=== PATIENT | female | born 1955 | race Caucasian/White ===

== ENCOUNTER → 2016-10-14 | Outpatient (CLI) | payer OTHER ==
[2016-10-14 13:22] LABS: Non-African American GFR(MDRD) >60 (>60 ml/min/1.73 sqM)
== END | disposition home or self-care (01) ==
LOC: LABWHC1 12:52
PROVIDERS: ATTEND Otolaryngology
DX: Z01.812 Encounter for preprocedural laboratory examination (principal); R43.8 Other disturbances of smell and taste
CPT/HCPCS: 36415; 82565

== ENCOUNTER → 2016-10-17 | Outpatient (CLI) | payer OTHER ==
--- NOTE | 2016-10-17 13:21 | MR ---
EXAMINATION TYPE: MR brain wo/w con DATE OF EXAM: 10/17/2016 12:42 PM COMPARISON: NONE HISTORY: other disturbance of smell and taste TECHNIQUE: Multiplanar, multiecho imaging of the brain was obtained with and without intravenous adm inistration of 20 mL intravenous MultiHance. FINDINGS: Midline structures are unremarkable. There is a normal craniocervical junction. Echoplanar diffusion imaging is normal. There is near complete opacification of the right maxillary sinus. There is mucoperiosteal thickening involving the left maxillary sinus as well as the ethmoid sinuses and left frontal sinus. There are normal vascular flow voids. There is no evidence of a CP angle mass lesion. No focal lesion, mass effect or midline shift is seen. I do not see evidence of intracranial blood. Following intravenous administration of gadolinium, I do not see evidence of abnormal enhancement. IMPRESSION: 1. NO ACUTE INTRACRANIAL ABNORMALITY. 2. CHRONIC SINUS MUCOSAL DISEASE DESCRIBED.
== END | disposition home or self-care (01) ==
LOC: RADMRIMAIN 11:49
PROVIDERS: ATTEND Otolaryngology
DX: R43.8 Other disturbances of smell and taste (principal)
CPT/HCPCS: 70553; A9577

== ENCOUNTER → 2017-04-13 | Outpatient (CLI) | payer OTHER ==
--- NOTE | 2017-04-14 11:02 | MM ---
Reason for exam: screening (asymptomatic). Last mammogram was performed 1 year and 1 month ago. History: Patient is postmenopausal. Family history of breast cancer in maternal grandmother at age 87. Stereotactic core biopsy of the left breast, 2014. Physical Findings: A clinical breast exam by your physician is recommended on an annual basis and results should be correlated with mammographic findings. MG Screening Mammo w CAD Bilateral CC and MLO view(s) were taken. Prior study comparison: March 09, 2016, bilateral MG screening mammo w CAD. August 12, 2015, bilateral MG 3d diag mammo w/cad ISAIAH. The breast tissue is almost entirely fat. No significant changes when compared with prior studies. ASSESSMENT: Benign, BI-RAD 2 RECOMMENDATION: Routine screening mammogram of both breasts in 1 year.
== END | disposition home or self-care (01) ==
LOC: RADMAMWWP 10:45
PROVIDERS: ATTEND Family Medicine
DX: Z12.31 Encounter for screening mammogram for malignant neoplasm of breast (principal)
CPT/HCPCS: 77067

== ENCOUNTER → 2017-05-23 | Outpatient (CLI) | payer OTHER ==
[2017-05-23 11:20] LABS: Albumin 4.2 g/dL (3.5-5.0); Bilirubin, Delta 0.3 mg/dL (0.0-0.2); Bilirubin,Unconjugated 0.4 mg/dL (0.0-1.1); Total Bilirubin 0.7 mg/dL (0.2-1.3); Total Protein 7.1 g/dL (6.3-8.2)
== END | disposition home or self-care (01) ==
LOC: LABWHC1 09:58
PROVIDERS: ATTEND Family Medicine
DX: E78.5 Hyperlipidemia, unspecified (principal)
CPT/HCPCS: 36415; 80061; 80076

== ENCOUNTER → 2017-09-08 | Outpatient (CLI) | payer OTHER | END | disposition home or self-care (01) | LOC: LABWHC1 12:12 | PROVIDERS: ATTEND Family Medicine | DX: M25.562 Pain in left knee (principal); M17.12 Unilateral primary osteoarthritis, left knee | CPT/HCPCS: 36415; 84550 ==

== ENCOUNTER → 2017-09-14 | Outpatient (CLI) | payer OTHER ==
--- NOTE | 2017-09-14 10:46 | MR ---
EXAMINATION TYPE: MR knee LT wo con DATE OF EXAM: 09/14/2017 COMPARISON: NONE HISTORY: Pain in left knee TECHNIQUE: Multiplanar, multisequence imaging of the left knee is performed without IV contrast. FINDINGS: There is narrowing of the joint spaces compatible osteoarthritis. There severe narrowing of the patellofemoral joint and knee joints bilaterally with hypertrophic spur ring. 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 Medial collateral and lateral collateral ligaments have a normal appearance. Anterior cruciate and po sterior cruciate ligaments are intact. There is grade 3 abnormal signal involving the posterior horn the medial meniscus compatible with men iscal tear. Grade 3 abnormal signal involving the body of the lateral meniscus compatible with tear. There is a sizable suprapatellar bursal fluid collection. Patellar and quadriceps tendons intact. Abn ormal marrow signal involving the femur and patella likely reactive secondary to severe arthropathy. IMPRESSION: 1. Severe osteoarthritis with degenerative meniscal tears involving the posterior horn medial meniscu s and body lateral 2. No ligamentous tear. 3. Chondromalacia as discussed above. 4. Suprapatellar bursal fluid collection.
== END | disposition home or self-care (01) ==
LOC: RADMRIMAIN 09:36
PROVIDERS: ATTEND Orthopaedic Surgery
DX: M17.12 Unilateral primary osteoarthritis, left knee (principal); S83.242A Other tear of medial meniscus, current injury, left knee, initial encounter; M22.42 Chondromalacia patellae, left knee

== ENCOUNTER → 2017-09-21 | Outpatient (CLI) | payer OTHER ==
[2017-09-21 11:19] LABS: Basophils # (A) 0.1 k/uL (0-0.2); Basophils % (A) 1 %; Eosinophils # (A) 0.5 k/uL (0-0.7); Eosinophils % (A) 7 %; HCT 42.4 % (34.0-46.0); Lymphocytes # (A) 1.3 k/uL (1.0-4.8); Lymphocytes % (A) 18 %; MCH 29.1 pg (25.0-35.0); MCV 88.3 fL (80.0-100.0); Mean Platelet Volume 7.6; Monocytes # (A) 0.5 k/uL (0-1.0); Monocytes % (A) 6 %; Neutrophils # (A) 4.7 k/uL (1.3-7.7); Neutrophils % (A) 66 %; Platelet Count 269 k/uL (150-450); RDW 13.2 % (11.5-15.5); WBC 7.1 k/uL (3.8-10.6)
[2017-09-21 11:32] LABS: Potassium 4.5 mmol/L (3.5-5.1)
== END | disposition home or self-care (01) ==
LOC: LABPAT 10:42
PROVIDERS: ATTEND Orthopaedic Surgery
DX: Z01.812 Encounter for preprocedural laboratory examination (principal); M23.92 Unspecified internal derangement of left knee
CPT/HCPCS: 36415; 80051; 85025

== ENCOUNTER 2017-10-10 09:54 | Day surgery (SDC) | payer OTHER ==
[2017-10-05 10:58] VITALS: BMI 34.7
--- NOTE | 2017-10-09 09:16 | HP ---
HISTORY AND PHYSICAL CHIEF COMPLAINT: Left knee pain. 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 She notes medial pain along with giving way. She has tried medications in addition to an injection and use of a cane with only partial temporary relief. PAST MEDICAL HISTORY: Significant for hypertension and hypercholesterolemia. PAST SURGICAL HISTORY: Significant for hernia repair and section. CURRENT MEDICATIONS: 1. Amlodipine. 2. Statin. She notes allergies to LIPITOR. FAMILY HISTORY: Significant for hypertension and heart disease. SOCIAL HISTORY: Negative for current tobacco or alcohol use. REVIEW OF SYSTEMS: A 16 point review of systems otherwise reviewed and is noncontributory. PHYSICAL EXAMINATION: The patient is approximately 5 foot 6, 220 pounds of endomorphic habitus. HEENT exam is nonfocal. Neck is supple. She has painless passive motion of her left hip. Straight leg raise is negative. Active motion of left knee -14 to 100 degrees of flexion. She is tender about the medial joint line. She has a large effusion. Collaterals are stable, Yuan is negative, Francisco's elicits medial and lateral pain. She has an antalgic gait pattern. Her distal neurovascular appears intact in the left lower extremity. MRI report for the left knee for 09/14/2017 shows medial and lateral meniscal tears along with tricompartmental osteoarthrosis. IMPRESSION: 1. Left knee internal derangement with symptomatic medial lateral meniscal tears #1. 2. Left knee tricompartmental osteoarthrosis. 3. Increased body mass index. RECOMMENDATIONS: I talked to the patient at length regarding her condition and treatment options. At this point, she is quite symptomatic and limited because of pain and mechanical symptoms despite conservative measures. After thorough discussion, she opts to proceed with surgery. We will plan to proceed with arthroscopic evaluation with probable partial medial and lateral meniscectomy. Risks and benefits were discussed at length in layman's terms. We will likely perform that as an outpatient procedure. MMODL / IJN: [id number] /
[~2017-10-10 09:54] MED LIST: DEXAMETHASONE SOD PHOSPHATE 10 MG/ML 1 ML VIAL IV ONE; LACTATED RINGERS 1,000 ML IV SCH; LIDOCAINE 1% 20 ML VIAL (10MG/ML) FOR IV START INTRADERMA PRN; MIDAZOLAM 2 MG/2 ML VIAL IV PRN; ONDANSETRON 4 MG/2 ML VIAL IVP ONE; ceFAZolin IN SWFI 2 GM/20 ML SYRINGE IVP ONE; fentaNYL (PF) 50 MCG/ML 2 ML AMP IV PRN
[2017-10-10] MEDS ORDERED: ONDANSETRON 4 MG/2 ML VIAL ONE (11:07)
[2017-10-10] MEDS ORDERED: SCOPOLAMINE 1.5MG/72HR PATCH TRANSDERM ONE (11:15)
[2017-10-10] MEDS ORDERED: PROPOFOL 10 MG/ML 20 ML VIAL IV ONE (13:46)
[2017-10-10] MEDS ORDERED: MIDAZOLAM 2 MG/2 ML VIAL ONE (13:46)
[2017-10-10] MEDS ORDERED: fentaNYL (PF) 50 MCG/ML 2 ML AMP ONE (13:46)
[2017-10-10] MEDS ORDERED: KETOROLAC 30 MG/ML 1 ML VIAL ONE (13:46)
[2017-10-10 14:37] VITALS: TEMP 97.2
--- NOTE | 2017-10-10 14:39 | P.OP ---
Date of Procedure: 10/10/17 Preoperative Diagnosis: Left knee internal derangement Postoperative Diagnosis: Left knee anterior/middle lateral meniscal tear, grade 3 chondral injury distal medial femoral condyle, grade 2 chondral injury medial patellar facet. Procedure(s) Performed: Left knee arthroscopic partial lateral meniscectomy/medial femoral chondrectomy/ patellar chondroplasty Anesthesia: JAQUELIN Surgeon: Hayden London Estimated Blood Loss (ml): 10 Pathology: none sent Condition: stable Disposition: PACU Indications for Procedure: The patient's a 62-year-old female who presents with progressive left knee pain and mechanical symptoms despite conservative measures. A discussion of the risks and benefits of operative intervention versus continued conservative measures was made with patient. She opted to proceed with surgery. Operative risks to include infection, neurovascular injury, development of blood clots, possible incomplete resolution of symptoms, possible worsening symptoms and need for subsequent procedures was discussed. Informed consent was obtained. Operative Findings: As below Description of Procedure: The patient was brought to the operating room, and after induction of general anesthesia examined the left knee. Collaterals were stable, Yuan was negative, and posterior drawer was negative. The left lower extremity was prepped and draped in normal fashion. A superior lateral portal was made through a 3 mm skin incision superior and lateral to the patella. A large effusion was encountered. A lateral portal was made through a 5 mm vertical skin incision lateral to the patellar tendon above the joint line. Diagnostic arthroscopy was performed. A medial portal was made through a similar incision medial to the patella tendon above the joint line. On inspection medial compartment, she was noted to have diffuse grade 3 chondral changes involving the posterior aspect the medial femoral condyle. There was a loose chondral flap that was debrided back to stable base with a motorized shaver. The medial meniscus was stable and intact. On inspection of the notch, the anterior cruciate ligament appeared to be intact. On inspection of the lateral compartment, a complex tear involving the anterior horn in addition to the middle one third of the lateral meniscus in the white-junction was noted. This debrided back to stable base with straight baskets and a motorized shaver. Diffuse grade 2 chondral changes were noted involving the distal lateral femoral condyle. On inspection of the patellofemoral articulation, a grade 2 chondral injury was noted involving the medial patella facet. This loose fragment was debrided back to stable base with a motorized shaver. The gutters were clear debris. The knee was then thoroughly irrigated. The portals were closed with Steri-Strips. A sterile dressing was applied in addition to a compression stocking. The patient was awoken from general anesthesia and transferred to the recovery room in good condition. A loss was estimated at 10 mL. No complications were incurred.
[2017-10-10 15:25] VITALS: RESP 18
[2017-10-10 15:41] VITALS: BP 147/67; PULSE 78
== END 2017-10-10 15:54 | disposition home or self-care (01) ==
LOC: OR 09:54
PROVIDERS: ATTEND Orthopaedic Surgery
DX: S83.282A Other tear of lateral meniscus, current injury, left knee, initial encounter (principal); S89.82XA Other specified injuries of left lower leg, initial encounter; X50.1XXA Overexertion from prolonged static or awkward postures, initial encounter; I10 Essential (primary) hypertension; E78.00 Pure hypercholesterolemia, unspecified; Z79.899 Other long term (current) drug therapy; Z88.8 Allergy status to other drugs, medicaments and biological substances
CPT/HCPCS: 29881; J2250; J1100; J2405; J3010; J1885; J2704; J0690

== ENCOUNTER → 2018-03-12 | Outpatient (CLI) | payer OTHER ==
[2018-03-12 11:16] LABS: Basophils # (A) 0.1 k/uL (0-0.2); Basophils % (A) 1 %; Eosinophils # (A) 0.5 k/uL (0-0.7); Eosinophils % (A) 8 %; HCT 43.8 % (34.0-46.0); HGB 14.7 gm/dL (11.4-16.0); Lymphocytes # (A) 1.2 k/uL (1.0-4.8); Lymphocytes % (A) 20 %; MCH 29.7 pg (25.0-35.0); MCHC 33.7 g/dL (31.0-37.0); MCV 88.2 fL (80.0-100.0); Mean Platelet Volume 7.8; Monocytes # (A) 0.3 k/uL (0-1.0); Monocytes % (A) 5 %; Neutrophils # (A) 4.2 k/uL (1.3-7.7); Neutrophils % (A) 66 %; Platelet Count 255 k/uL (150-450); RBC 4.96 m/uL (3.80-5.40); RDW 13.2 % (11.5-15.5); WBC 6.3 k/uL (3.8-10.6)
[2018-03-12 16:38] LABS: Albumin 4.4 g/dL (3.80-4.90); Albumin/Globulin Ratio 2.2 (1.20-2.10); Anion Gap 6.9 mmol/L (4.00-12.00); Calcium 9.5 mg/dL (8.7-10.3); Carbon Dioxide 28.1 mmol/L (21.6-31.8); LDL Cholesterol,Calculated 127.8 mg/dL (0.0-131.0); Total Bilirubin 0.7 mg/dL (0.3-1.2); Total Protein 6.4 g/dL (6.2-8.2); VLDL Calculation 26.2 mg/dL (5.00-40.00)
[2018-03-12 16:46] LABS: T4, Free (Free Thyroxine) 1.1 ng/dL (0.80-1.80)
== END ==
LOC: LABWHC1 09:33
PROVIDERS: ATTEND Family Medicine
DX: E55.9 Vitamin D deficiency, unspecified (principal); Z13.220 Encounter for screening for lipoid disorders; R53.83 Other fatigue
CPT/HCPCS: 36415; 80053; 80061; 82306; 84439; 84443; 85025

== ENCOUNTER → 2018-07-16 | Outpatient (CLI) | payer OTHER ==
[2018-07-16 12:22] LABS: Basophils % (A) 1 %; Eosinophils # (A) 0.4 k/uL (0-0.7); Eosinophils % (A) 6 %; HCT 41.2 % (34.0-46.0); HGB 13.8 gm/dL (11.4-16.0); Lymphocytes # (A) 1.3 k/uL (1.0-4.8); Lymphocytes % (A) 20 %; MCH 29.5 pg (25.0-35.0); MCHC 33.6 g/dL (31.0-37.0); MCV 87.9 fL (80.0-100.0); Mean Platelet Volume 7.4; Monocytes # (A) 0.3 k/uL (0-1.0); Monocytes % (A) 5 %; Neutrophils # (A) 4.4 k/uL (1.3-7.7); Neutrophils % (A) 66 %; Platelet Count 235 k/uL (150-450); RBC 4.68 m/uL (3.80-5.40); RDW 13.2 % (11.5-15.5); WBC 6.6 k/uL (3.8-10.6)
[2018-07-16 12:30] LABS: INR 0.9 (<1.2); Prothrombin Time 10.2 sec (9.0-12.0)
[2018-07-16 12:34] LABS: Potassium 4.4 mmol/L (3.5-5.1)
== END | disposition home or self-care (01) ==
LOC: LABPAT 11:05
PROVIDERS: ATTEND Orthopaedic Surgery
DX: Z01.812 Encounter for preprocedural laboratory examination (principal); M17.12 Unilateral primary osteoarthritis, left knee
CPT/HCPCS: 36415; 80051; 85025; 85610; 87070

== ENCOUNTER 2018-08-07 06:12 | Day surgery (SDC) | payer OTHER ==
[2018-08-02 11:50] VITALS: BMI 35.7
--- NOTE | 2018-08-06 09:16 | HP ---
HISTORY AND PHYSICAL CHIEF COMPLAINT: Left knee pain. 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 She has pain that limits her normal function and activities. She does use a cane. She has tried medications along with injections with only partial temporary relief. She had a previous arthroscopy last year. PAST MEDICAL HISTORY: Significant for hypertension, hypercholesterolemia, arthritis. PAST SURGICAL HISTORY: Significant for hernia repair, section, and left knee arthroscopy. CURRENT MEDICATIONS: Amlodipine and Rosuvastatin. She notes allergies to LIPITOR. FAMILY HISTORY: Significant for heart disease and hypertension. SOCIAL HISTORY: Negative for current tobacco or alcohol use. 16 POINT REVIEW OF SYSTEMS: Otherwise reviewed and is noncontributory. PHYSICAL EXAMINATION: On examination, the patient is approximately 5 foot 6, 218 pounds of endomorphic habitus. HEENT exam is nonfocal. Neck is supple. She has painless passive motion of left hip. Straight leg raise is negative. Active motion left knee is -12 to 100 degrees of flexion. She has a moderate effusion. She is tender about the medial joint line, greater than lateral. Collaterals are stable, Yuan is negative, Francisco's is equivocal. She has genu valgum alignment. Her distal neurovascular appears intact in the left lower extremity. Previous weightbearing, notch, lateral and Merchant views of the left knee obtained in the office shows severe patellofemoral along with moderate lateral compartment osteoarthrosis. IMPRESSION: 1. Left knee osteoarthrosis-severe. 2. Increased body mass index. RECOMMENDATIONS: I talked to the patient at length regarding her condition along with treatment options. She has tried conservative measures with persistence and worsening of her symptoms. After thorough discussion, she opts to proceed with surgery. We will plan to proceed with left total knee arthroplasty. Risks and benefits were discussed at length in layman's terms. We will institute DVT prophylaxis postoperatively. MMODL / IJN: [id number] /
[~2018-08-07 06:12] MED LIST changes: +ACETAMINOPHEN TAB 500 MG TAB PO ONE; -LACTATED RINGERS 1,000 ML IV SCH; -LIDOCAINE 1% 20 ML VIAL (10MG/ML) FOR IV START INTRADERMA PRN; +MELOXICAM 7.5 MG TAB PO ONE; +SCOPOLAMINE 1.5MG/72HR PATCH TRANSDERM ONE; +TRANEXAMIC ACID 1,000 MG in SODIUM CHLORIDE 0.9% 100 ML IVPB ONE
[2018-08-07] MEDS ORDERED: LIDOCAINE 1% 20 ML VIAL (10MG/ML) FOR IV START INTRADERMA ONE (06:50)
[2018-08-07] MEDS: LACTATED RINGERS 1,000 ML IV SCH (06:50)
[2018-08-07] MEDS ORDERED: fentaNYL (PF) 50 MCG/ML 2 ML AMP IV ONE (07:28)
--- NOTE | 2018-08-07 07:57 | P.ONQ ---
Anesthesiology Proc Note - PNB - Peripheral Nerve Block Performed Left Adductor Canal Infusion Time Out Performed: Yes Procedure Start Time: 07:35 Procedure Stop Time: 07:45 Indication: Acute Post-Operative Pain, Requested by physician (Dr London) Sedation Type: Sedate with meaningful contact maintained Preparation: Sterile Prep Position: Supine Catheter: Indwelling Needle Types: On-Q Needle Size: 100mm (4") Needle Gauge: 20 Technique: Ultrasound Injectate: 0.5% Ropivacaine (see comment for volume) (30 mls) Blood Aspirated: No Pain Paresthesia on Injection Noted: No Resistance on Injection: Normal Events: Uneventful and Well Tolerated
[2018-08-07] MEDS ORDERED: fentaNYL (PF) 50 MCG/ML 2 ML AMP ONE (07:58)
[2018-08-07] MEDS ORDERED: PROPOFOL 10 MG/ML 20 ML VIAL IV ONE (07:58)
[2018-08-07] MEDS ORDERED: SUCCINYLCHOLINE CHLORIDE 100 MG/5 ML SYR IV ONE (07:58)
[2018-08-07] MEDS ORDERED: LIDOCAINE 1% INJ 10MG/ML (20 ML MDV) ONE (07:58)
[2018-08-07] MEDS ORDERED: SODIUM CHLORIDE 0.9% 100 ML BAG ONE (07:58)
[2018-08-07] MEDS ORDERED: MIDAZOLAM 2 MG/2 ML VIAL ONE (07:58)
[2018-08-07] MEDS ORDERED: TRANEXAMIC ACID 1,000 MG/10 ML VIAL ONE (07:58)
[2018-08-07] MEDS ORDERED: ROPIVACAINE 246.25 MG, EPINEPHrine 0.5 MG, KETOROLAC 30 MG, WATER FOR INJECTION,STERILE... MISCELLANE ONE ×4 (08:04)
[2018-08-07] MEDS ORDERED: ceFAZolin 3,000 MG in SODIUM CHLORIDE 0.9% IRRIGATIO 3,000 ML IRRIGATION ONE (08:34)
[2018-08-07] MEDS ORDERED: LACTATED RINGERS 1,000 ML IV ONE (08:52)
[2018-08-07] MEDS ORDERED: traMADol 50 MG TAB PO PRN (09:43)
[2018-08-07] MEDS ORDERED: MAGNESIUM HYDROXIDE 2,400 MG/10 ML CUP PO PRN (09:43)
[2018-08-07] MEDS ORDERED: NALOXONE 0.4 MG/ML 1 ML VIAL IV PRN (09:43)
[2018-08-07] MEDS ORDERED: ONDANSETRON 4 MG/2 ML VIAL IVP PRN (09:43)
[2018-08-07] MEDS ORDERED: HYDROcodone/APAP 5-325MG 1 EACH TAB PO PRN (09:43)
[2018-08-07] MEDS ORDERED: HYDROmorphone 0.5 MG/0.5 ML SYRINGE IVP PRN (09:43)
[2018-08-07] MEDS ORDERED: ONDANSETRON 4 MG/2 ML VIAL IVP ONE (10:12)
--- NOTE | 2018-08-07 10:15 | P.OP ---
Date of Procedure: 08/07/18 Preoperative Diagnosis: Left knee severe tricompartmental osteoarthrosis Postoperative Diagnosis: Same Procedure(s) Performed: Left total knee arthroplastycementedcruciate retaining Implants: [employer] size 5 narrow cemented femoral component, size 3 cemented tibial component, 9 mm articular surface, 29 mm cemented patellar component. This is a cruciate retaining implant. Anesthesia: GETA, regional, local, spinal Surgeon: Hayden London Vascular Technologist #1: Shahram Murphy Estimated Blood Loss (ml): 50 Pathology: other (Bone fragments) Condition: stable Disposition: PACU Indications for Procedure: The patient's a 62-year-old female who presents with progressive left knee pain secondary to osteoarthrosis despite conservative measures. A discussion of the risks and benefits of operative intervention versus continued conservative measures was made with patient. She opted to proceed with surgery. Operative risks to include infection, neurovascular injury, development of blood clots, possible component loosening, possible component failure and need for subsequent procedures was discussed. Informed consent was obtained. Operative Findings: As below Description of Procedure: The patient was brought to the operating room, and after induction of spinal anesthesia the left lower extremity was prepped and draped in a normal fashion. The tourniquet was inflated to 270 mmHg. A longitudinal incision extending 3 finger breaths above the superior pole of the patella extending to the medial aspect the tibial tubercle was then made. The skin and subcutaneous tissues were divided sharply. Electrocautery was used for hemostasis. A medial parapatellar arthrotomy was then performed. The medial soft tissues to include the superficial and deep portions of the medial collateral ligament as well as the medial hamstring tendons were elevated subperiosteally. The proximal medial tibia osteophytes were carefully removed. The patella was everted. The knee was flexed. A portion of the retropatellar fat pad was excised sharply. The anterior cruciate ligament was sacrificed. A starting hole was made in the distal femur 1 cm anterior to the posterior cruciate origin. An intramedullary femoral guide was gently inserted planning on 5 valgus distal cut with 9 .5 mm distal resection. The cutting block was pinned in place. The distal cut was then made. The posterior referencing sizing guide was utilized. 3 of external rotation was built into the system and verified off the trans- epicondylar axis and the posterior condyles. I felt size 5 narrow was most appropriate. The cutting block was pinned in place. The anterior, posterior, and chamfer cuts were then made. The bone fragments were removed. The trial size 5 narrow femoral component was then placed and was fully seated. There was good anterior to posterior and medial to lateral fit. The distal peg holes were then drilled. The trial component was then removed. Attention was then paid towards preparing the proximal tibia. An extra medullary guide was utilized in line with the tibial shaft and second metatarsal distally. A 3 posterior slope was planned. I planned on 6 mm resection from the medial compartment. The cutting block was pinned in place. The proximal tibial cut was then made. The bone was removed in one fragment. The remnants of the medial and lateral menisci were excised the capsule junction with electrocautery. The tibia sized most appropriately at size 3. The posterior osteophytes off the distal femur were carefully removed with a curved osteotome. The trial tibial and femoral components were placed along with a 9 millimeters articular surface. I was able to obtain full flexion and extension with good stability with varus and valgus stress. After several flexion and extension cycles, the tibial rotation was marked with electrocautery in line with the medial one third of the tibial tubercle. Attention was then paid towards preparing the patella. A patella reamer was utilized taking this down to 14 mm of bone stock. A good flush cut was made. The patella sized most appropriately at 29 millimeters. The peg hole s were then drilled. The trial component was placed. The knee was taken through a range of motion. I had good patellofemoral tracking with no hands technique. The trial components were then removed. The tibia was prepared in the appropriate rotation with appropriate drill and keel punch. The flexion and extension gaps were checked and felt to be symmetric. The posterior soft tissues were injected with ropivacaine. The bony surfaces were prepared with pulsatile lavage and dried. The deep tibial component was then cemented in place and was fully seated. Excess cement was removed. The femoral component was cemented in place and was fully seated. Again excess cement was removed. The trial 9 millimeters surface was then inserted in the knee was put in full extension. The patella component was cemented in place. After the cement had sufficiently hardened, the knee was again taken through a range of motion. Again there was good stability in flexion and extension with varus and valgus stress. The trial articular surface was then removed. The final articular surface was placed and was impacted. Care was taken to avoid any soft tissue interposition. Pulsatile lavage was again utilized. The tourniquet was deflated with approximately 70 minutes total tourniquet time. There was minimal drainage therefore a deep drain was not placed. The medial parapatellar arthrotomy was then closed with #2 Ethibond suture. The subcutaneous tissues were reapproximated interrupted 2-0 Vicryl sutures. The skin was reapproximated with 3-0 subarticular strata fix suture. Skin tape and adhesive was applied. A sterile dressing was applied. The patient was then awoken from sedation and transferred to recovery room in good condition. Blood loss was estimated at 50 milliliters. No complications were incurred. Sponge and needle counts were correct at the end the case. Shemar SEN assisted during the major components this case to include exposure, bone resection, and implantation.
[2018-08-07] MEDS ORDERED: ROPIVACAINE 1,100 MG, SODIUM CHLORIDE 0.9% 500 ML 330 ML MISCELLANE PRN ×2 (10:27)
[2018-08-07] MEDS ORDERED: PROMETHAZINE INJ 25 MG/ML 1 ML VIAL IVPB ONE (10:27)
--- NOTE | 2018-08-07 10:41 | XR ---
EXAMINATION TYPE: XR knee limited LT DATE OF EXAM: 08/07/2018 CLINICAL HISTORY: Left knee pain and arthritis status post total knee replacement. TECHNIQUE: Portable AP and crosstable lateral views of the left knee are obtained immediately postop eratively. COMPARISON: Outside images of 07/31/2017 FINDINGS: Metallic hardware from total left knee arthroplasty is seen and appears satisfactory in al ignment and position. There is evidence of recent surgery with diffuse subcutaneous gas and soft tis taty swelling noted. IMPRESSION: METALLIC HARDWARE FROM TOTAL LEFT KNEE ARTHROPLASTY IS SATISFACTORY IN ALIGNMENT.
[2018-08-07] MEDS: ceFAZolin IN SWFI 2 GM/20 ML SYRINGE IVP SCH ×2 (16:18→22:05)
[2018-08-07] MEDS ORDERED: SENNOSIDES-DOCUSATE SODIUM 1 EACH TAB PO SCH (21:00)
[2018-08-08] MEDS ORDERED: HYDROcodone/APAP 5-325MG 1 EACH TAB ONE (03:05)
[2018-08-08] MEDS: HYDROcodone/APAP 5-325MG 1 EACH TAB PO PRN ×2 (08:22→14:09)
[2018-08-08 08:51] LABS: Basophils % (A) 0 %; Eosinophils # (A) 0.1 k/uL (0-0.7); Eosinophils % (A) 1 %; HCT 34.7 % (34.0-46.0); HGB 11.8 gm/dL (11.4-16.0); Lymphocytes # (A) 1.3 k/uL (1.0-4.8); Lymphocytes % (A) 11 %; MCH 29.9 pg (25.0-35.0); MCHC 33.9 g/dL (31.0-37.0); MCV 88.1 fL (80.0-100.0); Mean Platelet Volume 7.8; Monocytes # (A) 0.5 k/uL (0-1.0); Monocytes % (A) 4 %; Neutrophils # (A) 9.6 k/uL (1.3-7.7); Neutrophils % (A) 83 %; Platelet Count 214 k/uL (150-450); RBC 3.94 m/uL (3.80-5.40); RDW 13.7 % (11.5-15.5); WBC 11.5 k/uL (3.8-10.6)
[2018-08-08] MEDS ORDERED: RIVAROXABAN 10 MG TAB PO SCH (09:00)
[2018-08-08] MEDS ORDERED: CHLORTHALIDONE 25 MG TAB PO SCH (09:00)
[2018-08-08] MEDS ORDERED: amLODIPine 10 MG TAB PO SCH (09:00)
[2018-08-08] MEDS ORDERED: LISINOPRIL 20 MG TAB PO SCH (09:00)
--- NOTE | 2018-08-08 09:30 | P.PN ---
Subjective Progress Note Date: 08/08/18 Principal diagnosis: Status post left total knee arthroplasty Patient evaluated at bedside today, she is resting comfortably. She's done very well with physical therapy. Her pain is well-controlled. She denies any chest pain or shortness of breath. Objective - Vital Signs Vital signs: Vital Signs Temp 98.5 F 08/07/18 18:47 Pulse 80 08/07/18 18:47 Resp 16 08/07/18 18:47 BP 114/70 08/07/18 18:47 Pulse Ox 94 L 08/07/18 18:47 Intake & Output 08/07/18 08/08/18 08/08/18 18:59 06:59 18:59 Intake Total 1501 600 Output Total 50 Balance 1451 600 Intake: IV 1501 Intake, IV Titration 600 Amount Lactated Ringers 1,000 ml 600 @ 50 mls/hr IV .Q20H DEBBIE Rx#:[id number] Output: Estimated Blood Loss 50 Other: # Voids 1 - Exam Left lower extremity: Incision is clean, dry, and intact. The exofin fusion tape is in good condition. There is minimal soft tissue swelling and ecchymosis surrounding the medial and lateral aspects of the incision. Calf is soft, no tenderness with palpation. Plantar flexion, dorsiflexion, EHL, FHL are intact. Sensory exam to light touch throughout the extremity is intact, dorsal pedis pulses 2+. - Labs CBC & Chem 7: 08/08/18 07:36 Labs: Abnormal Lab Results - Last 24 Hours (Table) 08/08/18 Range/Units 07:36 WBC 11.5 H (3.8-10.6) k/uL Neutrophils # 9.6 H (1.3-7.7) k/uL Assessment and Plan Plan: Assessment: Postoperative day #1 status post left total knee arthroplasty Plan: Pain control, plan for discharge home on oral medication GI and DVT prophylaxis, Eliquis 2.5mg bid Wound care instructions discussed Home physical therapy and nursing after discharge Medical recommendations Plan for discharge home today Time with Patient: Less than 30
[2018-08-08 09:58] VITALS: TEMP 98.6
[2018-08-08] MEDS: LACTATED RINGERS 1,000 ML IV SCH (10:00)
--- NOTE | 2018-08-08 11:11 | P.DS ---
Providers Date of admission: 08/07/2018 Expected date of discharge: 08/08/18 Attending physician: Hayden London Consults: 08/07/18 09:46 Consult Physician Routine Consulting Provider: Archie Doherty Reason/Comments: Medical Management Do you want consulting provider notified?: Yes Primary care physician: Archie Doherty Hospital Course: Date of admission: 08/07/2018 Date of discharge: 08/08/2018 Admission diagnosis: Status post left total knee arthroplasty Discharge diagnosis: Same Attending physician: Dr. Laguna Surgical procedures: Left total knee arthroplasty Brief history: Patient is a 62-year-old female with a history of progressive primary left knee osteoarthritis. At this point patient has failed conservative treatment measures and has opted to proceed with a elective left total knee arthroplasty. Hospital course: Details of patient's surgery can be found in operative report. Patient tolerated the procedure well and was subsequently transported to orthopedic floor. Patient's orthopeidc and medical care was provided daily. Patient had daily laboratory tests performed for evaluation of overall blood counts. Patient had daily physical therapy to include strengthening range of motion as well as education with walker ambulation. Patient had daily CPM usage as part of their physical therapy program. Patient was treated with Xarelto for their postoperative DVT prophylaxis during their inpatient stay. Patient was noted to have a relatively uneventful postoperative course. Patient reported satisfactory pain control with oral pain medications by postoperative day 0. Patient showed satisfactory progress with physical therapy. Patient moved steadily through the program and had no difficulty meeting the goals by postop erative day 1. Given patient's otherwise satisfactory course and having met physical therapy goals, plan is to discharge patient home on postoperative day 1. Discharge condition/disposition: Patient will be discharged home in stable condition. Discharge medications: Instructions are given on resumption of patient's normal daily medications per primary care recommendation, in addition patient will be prescribed Allen 5 mg/325 mg, tramadol 50 mg, Colace 100 mg, Eliquis 2.5mg. Discharge instructions: 1. Wound care and infection precautions, keep incision dry and covered while showering, no lotions, creams, moisturizers. No soaking, tubs, pools, hottubs. Do not scrub over the incision. 2. Weight-bear as tolerated with walker / cane until follow-up. 3. Ice and elevate when necessary. Do not exceed 20 minutes per hour with ice pack. 4. Utilize compression sleeve until seen at first follow up appointment. 5. Visiting nursing care. 6. Home physical therapy including home CPM. 7. Pain meds and anticoagulants per prescription. 8. Pain medication has potential to cause constipation. Increase oral fluid and fiber intake. Contact primary care provider if you have not had a bowel movement within 48 hours after discharge 9. No anti-inflammatory medication until discussed at first post operative visit, this including Motrin, Aleve, Mobic, Diclofenac. 10. Follow up in office at 2 weeks postop with Shemar Murphy PA-C 11. Follow up with your primary care doctor 7-10 days after discharge. 12. Contact [facility] with any questions, . Procedures: Left total knee arthroplasty Patient Condition at Discharge: Good Plan - Discharge Summary Discharge Rx Participant: No New Discharge Prescriptions: New Docusate [Colace] 100 mg PO DAILY #30 capsule Apixaban [Eliquis] 2.5 mg PO BID #60 tab Hydrocodone/Acetaminophen [Allen 5-325] 1 - 2 each PO Q6HR PRN #40 tab PRN Reason: Pain traMADol HCl [Ultram] 50 mg PO Q6H PRN #28 tab PRN Reason: Pain No Action Rosuvastatin Calcium [Crestor] 10 mg PO HS amLODIPine BESYLATE [Norvasc] 10 mg PO QAM Ibuprofen [Motrin] 800 mg PO DAILY Chlorthalidone 25 mg PO QAM Benazepril HCl 20 mg PO QAM Vitamin D3 1.25 mg PO Q30D Discharge Medication List Ibuprofen [Motrin] 800 mg PO DAILY 10/05/17 [History] Rosuvastatin Calcium [Crestor] 10 mg PO HS 10/05/17 [History] amLODIPine BESYLATE [Norvasc] 10 mg PO QAM 10/05/17 [History] Benazepril HCl 20 mg PO QAM 08/02/18 [History] Chlorthalidone 25 mg PO QAM 08/02/18 [History] Vitamin D3 1.25 mg PO Q30D 08/02/18 [History] Apixaban [Eliquis] 2.5 mg PO BID #60 tab 08/08/18 [Rx] Docusate [Colace] 100 mg PO DAILY #30 capsule 08/08/18 [Rx] Hydrocodone/Acetaminophen [Allen 5-325] 1 - 2 each PO Q6HR PRN #40 tab 08/08/18 [Rx] traMADol HCl [Ultram] 50 mg PO Q6H PRN #28 tab 08/08/18 [Rx] Follow up Appointment(s)/Referral(s): Archie Doherty MD [Primary Care Provider] - 08/14/18 11:30 am Shahram Murphy PAC [PHYSICIAN BELT BACK OPERATOR] - 08/22/18 2:30 pm Ilda Reynolds [NON-STAFF] - [facility] Visiting Nurse, [NON-STAFF] - Activity/Diet/Wound Care/Special Instructions: Orthopedic Discharge Instructions: 1. Wound care and infection precautions, keep incision dry and covered while showering, no lotions, creams, moisturizers. No soaking, pools, hot tubs. Do not scrub over incision. 2. Weight-bear as tolerated with walker / cane until follow-up. 3. Ice and elevate when necessary. Do not exceed 20 minutes per hour with ice pack. 4. Utilize compression sleeve until seen at first follow up appointment. 5. Pain meds and anticoagulants per prescription. 6. Pain medication has potential to cause constipation. Increase oral fluid and fiber intake. Contact primary care provider if you have not had a bowel movement within 48 hours after discharge. 7. No anti-inflammatory medication until discussed at first post operative visit, this including Motrin, Aleve, Mobic, Diclofenac. 8. Follow up in office at 2 weeks postop with Shemar Murphy PA-C 9. Follow up with your primary care doctor 7-10 days after discharge. 10. Contact [facility] with any questions, [phone] 11. *Please call [employer] [place] once home to arrange delivery of continuous passive motion (CPM) machine - [phone] Discharge Disposition: HOME WITH HOME HEALTH SERVICES
--- NOTE | 2018-08-08 13:25 | P.PN ---
Progress Note - Text Anesthesia POD 1. Patient is status post left TKR under spinal anesthesia with a left adductor canal catheter placed for postoperative pain relief. With ropivacaine 0.2% running at 8 cc's per hour, the patient's VAS is (2, 4). Catheter site is clean dry and intact.
[2018-08-08 14:04] VITALS: BP 115/71; PULSE 90; RESP 16
--- NOTE | 2018-08-08 22:08 | PN ---
PROGRESS NOTE CHIEF COMPLAINT: Status post TKA. HISTORY OF PRESENT ILLNESS: This lady is doing well. She has had no problems and she is going home. She has had no nausea, chest pain, shortness of breath, abdominal pain, etc. PHYSICAL EXAM: Vital signs normal. Chest is clear. Cardiac exam is normal. Abdomen is soft, nontender. IMPRESSION: 1. Status post left total knee arthroplasty. 2. Hypertension. 3. Hyperlipidemia. PLAN: Probably home today. MMODL / IJN: [id number] /
--- NOTE | 2018-08-09 03:20 | CONS ---
CONSULTATION CHIEF COMPLAINT: Osteoarthritis of the left knee. HISTORY OF PRESENT ILLNESS: This is the first known admission for this 62-year-old white female who has come in for an elective left TKA. She has a history of hypertension and hyperlipidemia as well as her arthritis, but otherwise been very healthy. REVIEW OF SYSTEMS: She has had no neurologic problems, change in vision or hearing, chest pain, shortness of breath, cough, hemoptysis, sputum production, heart disease, angina, infarctions, orthopnea, PND, abdominal pain, nausea, vomiting, hematemesis, melena, hematochezia, colitis, diverticulosis, diverticulitis, hemorrhoids, jaundice, hepatitis, cirrhosis, hematuria, frequency, urgency, renal failure, diabetes, etc. Past medical history, family history and personal and social history reveal that she cannot take MORPHINE or STATINS. She is on benazepril 20 mg once a day, chlorthalidone 25 once a day, rosuvastatin 10 mg q.h.s., amlodipine 10 mg once a day, vitamin D3, 50,000 units a month and ibuprofen 800 q.i.d. p.r.n. Past medical history, family history and personal and social histories are all otherwise unremarkable or noncontributory. PHYSICAL EXAM: Blood pressure is 140/90 with a pulse 72, respirations 16. She is afebrile. BMI was 36.5. In general, she appeared to be overweight, but in no acute distress. Skin color is normal, skin is warm, dry. Head, ears, eyes, nose, mouth, and throat were normal and neck veins not distended. Chest is clear. Cardiac exam is normal sinus rhythm and there are no murmurs or extra sounds. Abdomen is soft, nontender without any visceromegaly or masses. Bowel sounds present. Extremities normal except for the left knee and neurologically is intact. IMPRESSION: 1. Osteoarthritis, left knee. 2. Hypertension. RECOMMENDATIONS: None. She is doing well. MMODL / IJN: [id number] /
== END 2018-08-08 14:25 | disposition home health service (06) ==
LOC: OR 06:12 → 4SSUR 12:54 → OR 08-08 14:25
PROVIDERS: ATTEND Orthopaedic Surgery
DX: M17.12 Unilateral primary osteoarthritis, left knee (principal); I10 Essential (primary) hypertension; E78.00 Pure hypercholesterolemia, unspecified; E78.5 Hyperlipidemia, unspecified; Z79.1 Long term (current) use of non-steroidal anti-inflammatories (NSAID); Z79.899 Other long term (current) drug therapy; Z88.8 Allergy status to other drugs, medicaments and biological substances; Z88.5 Allergy status to narcotic agent
CPT/HCPCS: 27447; 97161; 64448; 85025; 88300; 73560; C1713; C1776; C1772; J2250; J0171; J1100; J2550; J2405; J0690 ×2; J2001; J3010; J1885; J2795; J0330; J2704

== ENCOUNTER → 2018-08-22 | Outpatient (CLI) | payer OTHER ==
[2018-08-22 11:40] LABS: Basophils # (A) 0.1 k/uL (0-0.2); Basophils % (A) 1 %; Eosinophils # (A) 0.2 k/uL (0-0.7); Eosinophils % (A) 2 %; HCT 36.1 % (34.0-46.0); HGB 11.5 gm/dL (11.4-16.0); Lymphocytes # (A) 0.8 k/uL (1.0-4.8); Lymphocytes % (A) 7 %; MCH 28.4 pg (25.0-35.0); MCHC 31.9 g/dL (31.0-37.0); Mean Platelet Volume 7.1; Monocytes # (A) 0.4 k/uL (0-1.0); Monocytes % (A) 4 %; Neutrophils # (A) 9.6 k/uL (1.3-7.7); Neutrophils % (A) 86 %; RBC 4.05 m/uL (3.80-5.40); RDW 14.3 % (11.5-15.5); WBC 11.2 k/uL (3.8-10.6)
[2018-08-22 11:47] LABS: Platelet Count 527 k/uL (150-450)
[2018-08-22 14:29] LABS: Erythrocyte Sedimentation Rate 72 mm/hr (0-20)
== END | disposition home or self-care (01) ==
LOC: LABWHC1 10:32
PROVIDERS: ATTEND Orthopaedic Surgery
DX: M25.50 Pain in unspecified joint (principal)
CPT/HCPCS: 36415; 85025; 85652; 86140

== ENCOUNTER 2018-08-24 07:42 | Inpatient (IN) | payer OTHER ==
--- NOTE | 2018-08-23 16:45 | HP ---
HISTORY AND PHYSICAL CHIEF COMPLAINT: Left knee pain. HISTORY OF PRESENT ILLNESS: The patient is a 62-year-old female who underwent left total knee arthroplasty on 08/07/2018. She presents with 2 days of increasing swelling and intense pain in her left knee. She denies fevers or chills. She has a difficult time putting any weight on her leg. She was initially doing well postoperatively. She had persistent wound drainage postoperatively. PAST MEDICAL HISTORY: Significant for hypercholesterolemia and hypertension. PAST SURGICAL HISTORY: Significant for section and hernia repair in addition to recent left total knee arthroplasty. CURRENT MEDICATIONS: 1. Amlodipine. 2. Rosuvastatin. 3. [place]. ALLERGIES: She notes ALLERGY TO LIPITOR. FAMILY HISTORY: Significant for heart disease and hypertension. SOCIAL HISTORY: Negative for current tobacco or alcohol use. REVIEW OF SYSTEMS: Sixteen-point review of systems otherwise reviewed and is noncontributory. PHYSICAL EXAMINATION: On examination, the patient is approximately 5 feet 6 inches and 222 pounds of endomorphic habitus. HEENT exam is nonfocal. NECK: Supple. She has painless passive motion of her left hip. Active motion of left knee minus 15 to 80 degrees of flexion. She is diffusely tender about the medial and lateral joint line. Incision appears well approximated. No significant external warmth or erythema is noted. There is no drainage. She has a moderate effusion. Homans is negative. Her distal neurovascular appears intact in the left lower extremity. LABS: Laboratory results show peripheral white blood cell count of 11.2 with increased neutrophils in addition to a sed rate of 72 and C-reactive protein 5.6. IMPRESSION: Status post left total knee arthroplasty with probable acute infection. RECOMMENDATIONS: I talked to the patient and her at length regarding her condition along with treatment options. At this point I recommend proceeding with incision and drainage with probable irrigation and debridement and polyethylene exchange. We will plan to obtain cultures intraoperatively. We will also consult Infectious Disease postoperatively for appropriate antibiotic treatment. MMODL / IJN: [id number] /
[~2018-08-24 07:42] MED LIST changes: +LIDOCAINE 1% 20 ML VIAL (10MG/ML) FOR IV START INTRADERMA PRN; -MIDAZOLAM 2 MG/2 ML VIAL IV PRN; -fentaNYL (PF) 50 MCG/ML 2 ML AMP IV PRN
[2018-08-24] MEDS: LACTATED RINGERS 1,000 ML IV SCH (08:41)
[2018-08-24 08:43] LABS: Glucose,Whole Blood 117 mg/dL (75-99)
[2018-08-24] MEDS ORDERED: PROPOFOL 10 MG/ML 20 ML VIAL IV ONE (09:50)
[2018-08-24] MEDS ORDERED: fentaNYL (PF) 50 MCG/ML 2 ML AMP ONE (09:50)
[2018-08-24] MEDS ORDERED: TRANEXAMIC ACID 1,000 MG/10 ML VIAL ONE (09:50)
[2018-08-24] MEDS ORDERED: LIDOCAINE 1% INJ 10MG/ML (20 ML MDV) ONE (09:50)
[2018-08-24] MEDS ORDERED: MIDAZOLAM 2 MG/2 ML VIAL ONE (09:50)
[2018-08-24] MEDS ORDERED: SODIUM CHLORIDE 0.9% 100 ML BAG ONE (09:50)
[2018-08-24] MEDS ORDERED: HYDROmorphone (PF) 1 MG/ML ONE (09:50)
[2018-08-24] MEDS ORDERED: ceFAZolin 3,000 MG in SODIUM CHLORIDE 0.9% IRRIGATIO 3,000 ML IRRIGATION ONE ×6 (09:53)
[2018-08-24] MEDS ORDERED: ONDANSETRON 4 MG/2 ML VIAL IVP PRN (10:53)
[2018-08-24] MEDS ORDERED: MAGNESIUM HYDROXIDE 2,400 MG/10 ML CUP PO PRN (10:53)
[2018-08-24] MEDS ORDERED: NALOXONE 0.4 MG/ML 1 ML VIAL IV PRN (10:53)
[2018-08-24] MEDS ORDERED: HYDROmorphone 0.5 MG/0.5 ML SYRINGE IVP PRN (10:53)
--- NOTE | 2018-08-24 11:23 | P.OP ---
Date of Procedure: 08/24/18 Preoperative Diagnosis: Acute infection left total knee arthroplasty Postoperative Diagnosis: Infected hematoma Procedure(s) Performed: Incision and drainage with irrigation and debridement left knee/tibial polyethylene exchangerevision. Implants: [employer] 9 mm articular surfacecruciate retaining Anesthesia: JAQUELIN Surgeon: Hayden London Naval Architect Specialist #1: Shahram Murphy Estimated Blood Loss (ml): 50 Pathology: other (Gram stain/cultures) Condition: stable Disposition: PACU Indications for Procedure: The patient is a 62-year-old female who presents with a 2 day history of intense extreme pain in her left knee. She underwent total knee arthroplasty initially 2 weeks ago with an initial uncomplicated postoperative course. Laboratory studies showed elevated white blood cell count, elevated sed rate, and elevated C-reactive protein consistent with infection. A discussion of the risks and benefits of operative intervention was made with patient and her . She opted to proceed. Specific risks of the procedure to include persistence of infection and possible need for subsequent procedures was discussed. With the acute nature of her symptoms, I informed her we would attempt irrigation and debridement with polyethylene exchange. She understands if we're unable to eradicate infection, we may have to come back later date and remove all components and place a cement spacer. Informed consent was obtained. Operative Findings: Large [id number], no gross purulence, stable components Description of Procedure: The patient was brought to the operating room, and after induction of general anesthesia the left lower extremity was prepped and draped in normal fashion. The tourniquet was inflated to 270 mmHg. The previous midline incision was utilized. The skin and subcutaneous tissues were divided sharply. Electrocautery was used for hemostasis. Previously placed sutures were removed. No significant subcutaneous process was present. The medial parapatellar arthrotomy was performed. A large hematoma was present in the joint. This was evacuated. Gram stain cultures were obtained. The polyethylene was removed. An extensive synovectomy was performed utilizing a scalpel down to the bony surface. Pulsatile lavage was copiously utilized with 9 L of fluid. Instruments and gloves were changed. A new size 3/9 mm cruciate-retaining tibial articular surface was placed and was fully seated. The medial parapatellar arthrotomy was closed with #2 Ethibond suture. The tourniquet was deflated and final hemostasis was obtained with electrocautery. A deep drain was placed exiting laterally. The subcutaneous tissues were reapproximated interrupted 2-0 Vicryl sutures. The skin was approximated with 3-0 subcuticular Prolene suture. Skin tape and adhesive was applied. A sterile dressing was applied. The patient was awoken from general anesthesia and transferred to recovery room in good condition. Blood loss was estimated at 50 mL. No complications were incurred. Sponge and needle counts were correct at the end of the case.
[2018-08-24] MEDS: HYDROmorphone 0.5 MG/0.5 ML SYRINGE IVP PRN ×4 (11:29→11:55)
[2018-08-24] MEDS ORDERED: diphenhydrAMINE 50 MG/ML 1 ML VIAL IVP ONE (11:44)
[2018-08-24] MEDS: traMADol 50 MG TAB PO SCH ×3 (14:27→21:26)
[2018-08-24] MEDS: ceFAZolin IN SWFI 2 GM/20 ML SYRINGE IVP SCH (17:29)
[2018-08-24] MEDS: HYDROcodone/APAP 5-325MG 1 EACH TAB PO PRN ×2 (17:34→22:29)
[2018-08-24] MEDS: SENNOSIDES-DOCUSATE SODIUM 1 EACH TAB PO SCH (20:51)
--- NOTE | 2018-08-24 23:29 | P.CONS ---
History of Present Illness - Reason for Consult Consult date: 08/24/18 - Chief Complaint Pain of the left knee - History of Present Illness 62-year-old woman with history of known degenerative joint disease and underwent a left total knee arthroplasty on August 08 without any great difficulties. She is doing well with therapy until 2 days before admission. She relates today before she was quite active and when she awoke with severe pain in her knee she thought was due to activity. She however was unable to bear weight because of pain in sought care with orthopedic. She was evaluated and blood work was obtained. The leukocytosis was found that she had no improvement with local care and constantly was admitted and taken to the operating room. Concerns for infection of the joint because consult is requested. Infected hematoma is of concern from the surgical findings. The patient denies antecedent fever chills rigors or sweats. It was doing very well to the onset of the sudden pain. Review of Systems HEENT:Denies headache or acute visual change. Denies sinus or mouth discomforts. Denies neck stiffness or pain. Denies significant oral cavity pain. Denies difficulty on swallowing. Lungs: Denies significant shortness of breath, cough, sputum production, or hemoptysis. Cardiovascular: Denies significant shortness of breath, chest pain, chest wall pain, orthopnea, dyspnea on exertion, syncope Gastrointestinal:Denies nausea, vomiting, diarrhea, constipation, hematemesis, melena, hematochezia. No no significant change of bowel habit noticed. Musculoskeletal: As per the HPI was doing very well until the sudden onset of pain to the left knee which made it is not possible to bear weight because of pain. She is now postoperative and comfortable. Skin: Denies new rash or lesions. No new ulcers or wounds are related.. Neuro: Denies headache or visual change. Denies any new onset weakness or difficulty with ambulation. Denies falls or seizures. Psychiatric:Denies anxiety or depression. Endocrine: Denies significant fatigue, denies significant weight loss or weight gain. Past Medical History Past Medical History: Asthma, Hyperlipidemia, Hypertension, Osteoarthritis (OA) Additional Past Medical History / Comment(s): ASTHMA RESOLVED. BLOOD PRESSURE RX (AMLODIPINE, BENAZEPRIL, CHLORTHALIDONE) ON HOLD FOR PAST WEEK D/T FEELING FAINT ON ARISING. BEGAN STEROID PACK 08/22/18, TOLD TO HOLD AFTER AM DOSE TODAY. SWELLING IN LT KNEE/LEG SINCE SURGERY 08/07/18; USING WHEELCHAIR NOW D/T NWB. History of Any Multi-Drug Resistant Organisms: None Reported Past Surgical History: Section, Hernia Repair, Joint Replacement Additional Past Surgical History / Comment(s): Umbilical, Hemorrhoidectomy, D&C, Colonoscopy. TOTAL LT KNEE 08/07/18 Past Anesthesia/Blood Transfusion Reactions: Postoperative Nausea & Vomiting (PONV) Past Psychological History: No Psychological Hx Reported Additional Psychological History / Comment(s): and lives in the family home with . She is a primary caregiver further 20-year-old son who has weakness from genetic disorder but is cognitively intact. PET dog in the home. no international travel. Lifelong nonsmoker. No smoking or alcohol use. No official drug use Smoking Status: Never smoker Past Alcohol Use History: Occasional Past Drug Use History: None Reported - Past Family History Mother Family Medical History: Hypertension Additional Family Medical History / Comment(s): Subdural Hematoma Medications and Allergies Home Medications and Allergies Comment(s): Current Medications Hydrocodone Bitart/Acetaminophen ([place] 5-325) 1 each PO Q6HR PRN PRN Reason: Pain Scale 1 to 5 Last Admin: 08/24/18 17:34 Dose: 1 each Documented by: Hydrocodone Bitart/Acetaminophen ([place] 5-325) 2 each PO Q6HR PRN PRN Reason: Pain Scale 6 to 10 Last Admin: 08/24/18 22:29 Dose: 2 each Documented by: Aspirin (Aspirin) 81 mg PO BID [facility] Cefazolin Sodium (Kefzol) 2 gm IVP Q8H [facility] Last Admin: 08/24/18 17:29 Dose: 2 gm Documented by: Hydromorphone HCl (Dilaudid) 0.5 mg IVP Q5M PRN PRN Reason: Pain Control Stop: 08/25/18 06:10 Last Admin: 08/24/18 11:55 Dose: 0.5 mg Documented by: Hydromorphone HCl (Dilaudid) 0.5 mg IVP Q3HR PRN PRN Reason: Pain Scale 4 to 6 Lactated Ringer's (Lactated Ringers) 1,000 mls @ 50 mls/hr IV .Q20H [facility] Last Admin: 08/24/18 08:41 Dose: 1,025 mls Documented by: Lidocaine HCl (.Xylocaine 1% Inj (10mg/Ml) For Iv Start) 0.1 ml INTRADERMA PER PROTOCOL PRN PRN Reason: IV Start Last Admin: 08/24/18 08:33 Dose: 0.1 ml Documented by: Magnesium Hydroxide (Milk Of Magnesia) 2,400 mg PO DAILY PRN PRN Reason: Constipation Naloxone HCl (Narcan) 0.2 mg IV Q2M PRN PRN Reason: Opioid Reversal Ondansetron HCl (Zofran) 4 mg IVP Q8HR PRN PRN Reason: Nausea And Vomiting Last Admin: 08/24/18 11:29 Dose: 4 mg Documented by: Senna/Docusate Sodium (Senokot-S) 2 each PO HS [facility] Last Admin: 08/24/18 20:51 Dose: 2 each Documented by: Tramadol HCl (Ultram) 50 mg PO QID [facility] Last Admin: 08/24/18 21:26 Dose: Not Given Documented by: Home Medications Medication Instructions Recorded Confirmed Type Apixaban [Eliquis] 2.5 mg PO BID #60 tab 08/08/18 08/23/18 Rx Hydrocodone/Acetaminophen [[place] 1 - 2 each PO Q6HR PRN #40 tab 08/08/18 08/24/18 Rx 5-325] methylPREDNISolone Dose Pack 4 mg PO DIRECTED 08/23/18 08/23/18 History [Medrol Dose Pack] Ergocalciferol [Vitamin D2] 50,000 unit PO Q30D 08/24/18 08/24/18 History Allergies Allergy/AdvReac Type Severity Reaction Status Date / Time morphine Allergy Rash/Hives Verified 08/24/18 11:28 atorvastatin [From Lipitor] AdvReac Nausea & Verified 08/24/18 11:28 Vomiting Physical Exam Vitals: Vital Signs Temp Pulse Pulse Resp BP BP Pulse Ox 08/24/18 19:00 98.4 F 89 14 121/73 95 08/24/18 14:20 74 126/77 99 08/24/18 14:05 73 135/80 100 08/24/18 13:50 80 131/82 100 08/24/18 13:35 79 121/83 100 08/24/18 13:20 83 111/74 99 08/24/18 13:04 79 123/83 99 08/24/18 12:50 86 137/82 99 08/24/18 12:35 86 138/80 98 08/24/18 12:17 97.7 F 80 15 157/94 98 08/24/18 12:02 87 16 135/64 99 08/24/18 11:46 99 16 135/63 94 L 08/24/18 11:31 89 16 142/65 99 08/24/18 11:17 97.2 F L 93 16 135/63 97 08/24/18 08:06 98.1 F 84 16 136/75 99 Intake and Output 08/24/18 08/24/18 08/25/18 14:59 22:59 06:59 Intake Total 1028 400 Output Total 90 30 Balance 938 370 Intake: IV 1028 Intake, IV Titration 150 Amount Lactated Ringers 1,000 ml 150 @ 50 mls/hr IV .Q20H [facility] Rx#:[id number] Oral 250 Output: Drainage 40 30 Left Knee 40 30 Estimated Blood Loss 50 Other: Voiding Method Toilet # Voids 2 HEENT: Anicteric conjunctiva are pink and moist nasal mucosa grossly intact without significant lesions, there is no thrush. Neck: The neck is supple without significant lymphadenopathy or thyromegaly. Lungs: Good bilateral air entry without significant crackles or wheezing. There is no significant bronchial sounds. There is no egophony or dullness. Heart: Regular rate and rhythm with an audible S1-S2, no S3 no S4. There is no significant murmur click or rub, PMI was nondisplaced. Abdomen: Positive bowel sounds soft and nontender without palpable masses or organomegaly. There was no guarding or rebound. Extremities: The upper extremities have excellent pulses they are symmetric, no significant petechiae or telangiectasia. No splinter hemorrhages were noted. Right lower extremity without acute abnormality is. The fluctuations of the recent surgical intervention to the left leg the dressing has just been applied and that removed. Has intact sensation over the toes and foot. Without swelling or erythema. Neuro: Awake alert oriented to person place and time. There are no acute new gross focal sensory motor deficits. Results Results: Laboratory Results POC Glucose (mg/dL) 117 mg/dL (75-99) H 08/24/18 08:40 POC Glu Wrecking Mechanic ID Sara Gutierrez 08/24/18 08:40 Labs: Abnormal Lab Results - Last 24 Hours (Table) 08/24/18 Range/Units 08:40 POC Glucose (mg/dL) 117 H (75-99) mg/dL Microbiology - Last 24 Hours (Table) 08/24/18 10:19 Anaerobic Culture - Preliminary Knee - Left 08/24/18 10:18 Anaerobic Culture - Preliminary Knee - Left 08/24/18 10:19 Wound Culture - Preliminary Knee - Left 08/24/18 10:18 Wound Culture - Preliminary Knee - Left 08/24/18 10:18 Gram Stain - Preliminary Knee - Left Wound Culture - Final 08/24/18 10:19 Gram Stain - Preliminary Knee - Left Wound Culture - Final Microbiology 08/24/18 10:19 Knee - Left Anaerobic Culture - Preliminary 08/24/18 10:18 Knee - Left Anaerobic Culture - Preliminary 08/24/18 10:19 Knee - Left Wound Culture - Preliminary 08/24/18 10:18 Knee - Left Wound Culture - Preliminary 08/24/18 10:18 Knee - Left Gram Stain - Preliminary 08/24/18 10:18 Knee - Left Wound Culture - Final 08/24/18 10:19 Knee - Left Gram Stain - Preliminary 08/24/18 10:19 Knee - Left Wound Culture - Final Assessment and Plan (1) Status post total left knee replacement Current Visit: No Status: Acute Code(s): Z96.652 - PRESENCE OF LEFT ARTIFICIAL KNEE JOINT SNOMED Code(s): 0178751634444 (2) Infection of total left knee replacement Narrative/Plan: 62-year-old woman presents to hospital with sudden onset of increasing pain to her left knee. Occurring approximately 2 weeks after her total knee arthroplasty. She is doing very well. She does relate that she had a day of significant amount of activity and then the next day noted significant change in that she was not able to bear weight because of pain. With concerns to an infection at that site she's taken to the operating room where the hematoma was removed podophyllin exchange occurred in cultures weren't obtained. Antibiotic therapy will continue with cefazolin for now until we have further data. Concerns to an infected hematoma, infected joint, or simple noninfected hematoma. Cultures will drive the course of antibiotic therapy in the next short period of time. Laboratories requested. Current Visit: No Status: Acute Code(s): T84.54XA - INFECT/INFLM REACTION DUE TO INTERNAL LEFT KNEE PROSTH, INIT SNOMED Code(s): 416471522
[2018-08-25 01:04] LABS: Basophils % (A) 1 %; Eosinophils # (A) 0.1 k/uL (0-0.7); Eosinophils % (A) 1 %; HCT 28.9 % (34.0-46.0); Lymphocytes % (A) 11 %; MCH 28.2 pg (25.0-35.0); Mean Platelet Volume 6.7; Monocytes # (A) 0.6 k/uL (0-1.0); Monocytes % (A) 7 %; Neutrophils # (A) 7.2 k/uL (1.3-7.7); Neutrophils % (A) 80 %; Platelet Count 453 k/uL (150-450); RBC 3.18 m/uL (3.80-5.40); RDW 13.9 % (11.5-15.5)
[2018-08-25 02:02] LABS: Erythrocyte Sedimentation Rate 36 mm/hr (0-20)
[2018-08-25] MEDS: ceFAZolin IN SWFI 2 GM/20 ML SYRINGE IVP SCH ×3 (02:17→17:50)
[2018-08-25] MEDS: HYDROcodone/APAP 5-325MG 1 EACH TAB PO PRN ×4 (04:16→23:42)
[2018-08-25] MEDS: LACTATED RINGERS 1,000 ML IV SCH (04:16)
[2018-08-25 07:57] LABS: Basophils # (A) 0.1 k/uL (0-0.2); Basophils % (A) 1 %; Eosinophils # (A) 0.3 k/uL (0-0.7); Eosinophils % (A) 3 %; HCT 27.6 % (34.0-46.0); HGB 8.9 gm/dL (11.4-16.0); Lymphocytes # (A) 1.8 k/uL (1.0-4.8); Lymphocytes % (A) 20 %; MCH 28.6 pg (25.0-35.0); MCHC 32.2 g/dL (31.0-37.0); MCV 88.8 fL (80.0-100.0); Mean Platelet Volume 7.1; Monocytes # (A) 0.5 k/uL (0-1.0); Monocytes % (A) 6 %; Neutrophils % (A) 69 %; Platelet Count 408 k/uL (150-450); RBC 3.11 m/uL (3.80-5.40); RDW 14.4 % (11.5-15.5); WBC 8.7 k/uL (3.8-10.6)
[2018-08-25 08:18] LABS: Anion Gap 3 mmol/L; Blood Urea Nitrogen 17 mg/dL (7-17); Calcium 8.6 mg/dL (8.4-10.2); Carbon Dioxide 31 mmol/L (22-30); Chloride 106 mmol/L (98-107); Glucose 91 mg/dL (74-99); Potassium 4.1 mmol/L (3.5-5.1); Sodium 140 mmol/L (137-145)
[2018-08-25] MEDS: traMADol 50 MG TAB PO SCH ×4 (09:20→21:51)
[2018-08-25] MEDS: ASPIRIN 81 MG PO SCH ×2 (09:20→21:50)
--- NOTE | 2018-08-25 12:16 | P.PN ---
Subjective Progress Note Date: 08/25/18 Principal diagnosis: Status post incision and drainage left total knee arthroplasty The patient notes improvement in terms of her pain. Objective - Vital Signs Vital signs: Vital Signs Temp 98.7 F 08/25/18 07:18 Pulse 81 08/25/18 07:18 Resp 15 08/25/18 07:18 BP 129/81 08/25/18 07:18 Pulse Ox 98 08/25/18 07:18 Intake & Output 08/24/18 08/25/18 08/25/18 18:59 06:59 18:59 Intake Total 1028 1000 0 Output Total 90 50 Balance 938 950 0 Intake: IV 1028 Intake, IV Titration 650 Amount Lactated Ringers 1,000 ml 650 @ 50 mls/hr IV .Q20H [facility] Rx#:[id number] Oral 350 0 Output: Drainage 40 50 Left Knee 40 50 Estimated Blood Loss 50 Other: Voiding Method Toilet Toilet Toilet # Voids 1 - Integumentary Integumentary Comment(s): Incision clean, dry, and intact. - Musculoskeletal Musculoskeletal Comment(s): Manuel's negative left lower extremity, neurovascularly intact. - Labs CBC & Chem 7: 08/25/18 07:02 08/25/18 07:02 Labs: Abnormal Lab Results - Last 24 Hours (Table) 08/24/18 08/25/18 08/25/18 Range/Units 23:38 07:02 07:02 RBC 3.18 L 3.11 L (3.80-5.40) m/uL Hgb 9.0 L D 8.9 L (11.4-16.0) gm/dL Hct 28.9 L 27.6 L (34.0-46.0) % Plt Count 453 H (150-450) k/uL ESR 36 H (0-20) mm/hr Carbon Dioxide 31 H (22-30) mmol/L Microbiology - Last 24 Hours (Table) 08/24/18 10:18 Gram Stain - Preliminary Knee - Left Wound Culture - Preliminary 08/24/18 10:19 Gram Stain - Preliminary Knee - Left Wound Culture - Preliminary 08/24/18 10:19 Anaerobic Culture - Preliminary Knee - Left 08/24/18 10:18 Anaerobic Culture - Preliminary Knee - Left 08/24/18 10:18 Gram Stain - Preliminary Knee - Left Wound Culture - Final 08/24/18 10:19 Gram Stain - Preliminary Knee - Left Wound Culture - Final Assessment and Plan Assessment: Status post incision and drainage left total knee are plasty with polyethylene exchange Plan: Clinically the patient is improving. We will continue antibiotics per infectious disease. Cultures thus far show no growth. We will repeat laboratory studies tomorrow. Time with Patient: Less than 30
--- NOTE | 2018-08-25 14:34 | PN ---
PROGRESS NOTE DATE OF SERVICE: 08/25/2018. CHIEF COMPLAINT: Status post incision and drainage of left knee. HISTORY OF PRESENT ILLNESS: This lady is doing well. She has no fever and she is not nauseated. PHYSICAL EXAMINATION: Color is good. Chest is clear. Cardiac exam is normal. Abdomen is soft, nontender. IMPRESSION: 1. Status post drainage of left knee. 2. Hypertension. PLAN: Continue to follow for any medical problems. Blood pressure is good at this time. MMODL / IJN: [id number] /
--- NOTE | 2018-08-25 15:25 | CONS ---
CONSULTATION CHIEF COMPLAINT: Pain and swelling in the left knee after knee replacement. HISTORY OF PRESENT ILLNESS: This is another recent admission for this 62-year-old white female who has history of hypertension. She recently had her knee replaced. He was doing well until it suddenly started to have a lot more discomfort and subsequently was found to have an infection and hematoma. She is in for drainage, IV antibiotics and to establish a long-term care plan. REVIEW OF SYSTEMS: She has had no fever, chills, confusion, difficulty with vision or hearing, headache, neurologic problems, chest pain, shortness of breath, hemoptysis, abdominal pain, nausea, vomiting, hematemesis, melena, urinary symptoms, etc. PAST MEDICAL HISTORY: Past medical history, family history, personal and social histories reveal that SHE IS ALLERGIC TO ULTRAM, MORPHINE, AND LIPITOR. MEDICATIONS: At home include removed, rosuvastatin 10 mg q.h.s. Vicodin 5 p.r.n., apixaban 2.5 twice a day, and vitamin D 36963 units a month. His family history and personal and social histories are unremarkable. She does not smoke. She does have a history of asthma. PHYSICAL EXAM: Blood pressure 110/62 with a pulse of 83, respirations of 21, and she is afebrile. GENERAL: She appeared to be overweight. SKIN: Color is normal. Skin is warm, dry. Lymph nodes not enlarged. HEENT: Head, ears, eyes, nose, mouth, and throat were normal. NECK: Neck veins are not distended. Thyroid is not enlarged. CHEST: Clear. CARDIOVASCULAR: Cardiac exam is normal and no murmurs or extra sounds. ABDOMEN is soft, nontender. EXTREMITIES: Demonstrated dressing in the left knee where there is a drain. IMPRESSION: 1. Postop infection following left total knee arthroplasty. 2. Hypertension. 3. Hyperlipidemia. PLAN: Continue to follow for any medical problems including hypertension. Thank you for this consultation. MMODL / IJN: [id number] /
[2018-08-25 15:34] VITALS: BMI 35.7
[2018-08-25 16:13] LABS: Erythrocyte Sedimentation Rate 25 mm/hr (0-20)
[2018-08-25] MEDS: APIXABAN 2.5 MG TABLET PO SCH (21:51)
[2018-08-25] MEDS: SENNOSIDES-DOCUSATE SODIUM 1 EACH TAB PO SCH (21:51)
--- NOTE | 2018-08-25 22:25 | P.PN ---
Subjective Progress Note Date: 08/25/18 62-year-old woman with history of known degenerative joint disease and underwent a left total knee arthroplasty on August 08 without any great difficulties. She is doing well with therapy until 2 days before admission. She relates today before she was quite active and when she awoke with severe pain in her knee she thought was due to activity. She however was unable to bear weight because of pain in sought care with orthopedic. She was evaluated and blood work was obtained. The leukocytosis was found that she had no improvement with local care and constantly was admitted and taken to the operating room. Concerns for infection of the joint because consult is requested. Infected hematoma is of concern from the surgical findings. The patient denies antecedent fever chills rigors or sweats. It was doing very well to the onset of the sudden pain. 08/25/2018 patient is feeling better today. She has been able to navigate to the restroom without great difficulty. The severe left knee pain is definitely improved even further over the last day. Continues to have no fever or chills. Other new complaints. Objective - Vital Signs Vital signs: Vital Signs Temp 98.1 F 08/25/18 20:27 Pulse 95 08/25/18 20:27 Resp 16 08/25/18 20:27 BP 111/70 08/25/18 20:27 Pulse Ox 96 08/25/18 20:27 Intake & Output 08/25/18 08/25/18 08/26/18 06:59 18:59 06:59 Intake Total 1000 530 Output Total 50 Balance 950 530 Weight 102.058 kg Intake: Intake, IV Titration 650 350 Amount Lactated Ringers 1,000 ml 650 350 @ 50 mls/hr IV .Q20H [facility] Rx#:[id number] Oral 350 180 Output: Drainage 50 Left Knee 50 Other: Voiding Method Toilet Toilet Toilet # Voids 1 3 2 - Exam HEENT: Anicteric conjunctiva are pink and moist nasal mucosa grossly intact without significant lesions, there is no thrush. Neck: The neck is supple without significant lymphadenopathy or thyromegaly. Lungs: Good bilateral air entry without significant crackles or wheezing. There is no significant bronchial sounds. There is no egophony or dullness. Heart: Regular rate and rhythm with an audible S1-S2, no S3 no S4. There is no significant murmur click or rub, PMI was nondisplaced. Abdomen: Positive bowel sounds soft and nontender without palpable masses or organomegaly. There was no guarding or rebound. Extremities: The upper extremities have excellent pulses they are symmetric, no significant petechiae or telangiectasia. No splinter hemorrhages were noted. Right lower extremity without acute abnormality is. The postoperative dressing is removed. There is some bruising that's evident distal to the knee both anterior and posterior. It is not very tender. There is no expressible purulence or drainage from the knee at this time. Surgical incision is holding well. Has intact sensation over the toes and foot. Without swelling or erythema. Neuro: Awake alert oriented to person place and time. There are no acute new gross focal sensory motor deficits. - Labs CBC & Chem 7: 08/25/18 07:02 08/25/18 07:02 Labs: Abnormal Lab Results - Last 24 Hours (Table) 08/24/18 08/25/18 08/25/18 Range/Units 23:38 07:02 07:02 RBC 3.18 L 3.11 L (3.80-5.40) m/uL Hgb 9.0 L D 8.9 L (11.4-16.0) gm/dL Hct 28.9 L 27.6 L (34.0-46.0) % Plt Count 453 H (150-450) k/uL ESR 36 H 25 H (0-20) mm/hr Carbon Dioxide 31 H (22-30) mmol/L Microbiology - Last 24 Hours (Table) 08/24/18 10:18 Gram Stain - Preliminary Knee - Left Wound Culture - Preliminary 08/24/18 10:19 Gram Stain - Preliminary Knee - Left Wound Culture - Preliminary Laboratory Results WBC 8.7 k/uL (3.8-10.6) 08/25/18 07:02 RBC 3.11 m/uL (3.80-5.40) L 08/25/18 07:02 Hgb 8.9 gm/dL (11.4-16.0) L 08/25/18 07:02 Hct 27.6 % (34.0-46.0) L 08/25/18 07:02 MCV 88.8 fL (80.0-100.0) 08/25/18 07:02 MCH 28.6 pg (25.0-35.0) 08/25/18 07:02 MCHC 32.2 g/dL (31.0-37.0) 08/25/18 07:02 RDW 14.4 % (11.5-15.5) 08/25/18 07:02 Plt Count 408 k/uL (150-450) 08/25/18 07:02 Neutrophils % 69 % 08/25/18 07:02 Lymphocytes % 20 % 08/25/18 07:02 Monocytes % 6 % 08/25/18 07:02 Eosinophils % 3 % 08/25/18 07:02 Basophils % 1 % 08/25/18 07:02 Neutrophils # 6.0 k/uL (1.3-7.7) 08/25/18 07:02 Lymphocytes # 1.8 k/uL (1.0-4.8) 08/25/18 07:02 Monocytes # 0.5 k/uL (0-1.0) 08/25/18 07:02 Eosinophils # 0.3 k/uL (0-0.7) 08/25/18 07:02 Basophils # 0.1 k/uL (0-0.2) 08/25/18 07:02 ESR 25 mm/hr (0-20) H 08/25/18 07:02 Sodium 140 mmol/L (137-145) 08/25/18 07:02 Potassium 4.1 mmol/L (3.5-5.1) 08/25/18 07:02 Chloride 106 mmol/L (98-107) 08/25/18 07:02 Carbon Dioxide 31 mmol/L (22-30) H 08/25/18 07:02 Anion Gap 3 mmol/L 08/25/18 07:02 BUN 17 mg/dL (7-17) 08/25/18 07:02 Creatinine 0.65 mg/dL (0.52-1.04) 08/25/18 07:02 Est GFR (CKD-EPI)AfAm >90 (>60 ml/min/1.73 sqM) 08/25/18 07:02 Est GFR (CKD-EPI)NonAf >90 (>60 ml/min/1.73 sqM) 08/25/18 07:02 Glucose 91 mg/dL (74-99) 08/25/18 07:02 POC Glucose (mg/dL) 117 mg/dL (75-99) H 08/24/18 08:40 POC Glu Hvac Specialist ID Sara Gutierrez 08/24/18 08:40 Calcium 8.6 mg/dL (8.4-10.2) 08/25/18 07:02 Laboratory Results WBC 8.7 k/uL (3.8-10.6) 08/25/18 07:02 RBC 3.11 m/uL (3.80-5.40) L 08/25/18 07:02 Hgb 8.9 gm/dL (11.4-16.0) L 08/25/18 07:02 Hct 27.6 % (34.0-46.0) L 08/25/18 07:02 MCV 88.8 fL (80.0-100.0) 08/25/18 07:02 MCH 28.6 pg (25.0-35.0) 08/25/18 07:02 MCHC 32.2 g/dL (31.0-37.0) 08/25/18 07:02 RDW 14.4 % (11.5-15.5) 08/25/18 07:02 Plt Count 408 k/uL (150-450) 08/25/18 07:02 Neutrophils % 69 % 08/25/18 07:02 Lymphocytes % 20 % 08/25/18 07:02 Monocytes % 6 % 08/25/18 07:02 Eosinophils % 3 % 08/25/18 07:02 Basophils % 1 % 08/25/18 07:02 Neutrophils # 6.0 k/uL (1.3-7.7) 08/25/18 07:02 Lymphocytes # 1.8 k/uL (1.0-4.8) 08/25/18 07:02 Monocytes # 0.5 k/uL (0-1.0) 08/25/18 07:02 Eosinophils # 0.3 k/uL (0-0.7) 08/25/18 07:02 Basophils # 0.1 k/uL (0-0.2) 08/25/18 07:02 ESR 25 mm/hr (0-20) H 08/25/18 07:02 Sodium 140 mmol/L (137-145) 08/25/18 07:02 Potassium 4.1 mmol/L (3.5-5.1) 08/25/18 07:02 Chloride 106 mmol/L (98-107) 08/25/18 07:02 Carbon Dioxide 31 mmol/L (22-30) H 08/25/18 07:02 Anion Gap 3 mmol/L 08/25/18 07:02 BUN 17 mg/dL (7-17) 08/25/18 07:02 Creatinine 0.65 mg/dL (0.52-1.04) 08/25/18 07:02 Est GFR (CKD-EPI)AfAm >90 (>60 ml/min/1.73 sqM) 08/25/18 07:02 Est GFR (CKD-EPI)NonAf >90 (>60 ml/min/1.73 sqM) 08/25/18 07:02 Glucose 91 mg/dL (74-99) 08/25/18 07:02 POC Glucose (mg/dL) 117 mg/dL (75-99) H 08/24/18 08:40 POC Glu Hvac Specialist ID Sara Gutierrez 08/24/18 08:40 Calcium 8.6 mg/dL (8.4-10.2) 08/25/18 07:02 Microbiology 08/24/18 10:18 Knee - Left Gram Stain - Preliminary 08/24/18 10:18 Knee - Left Wound Culture - Preliminary 08/24/18 10:19 Knee - Left Gram Stain - Preliminary 08/24/18 10:19 Knee - Left Wound Culture - Preliminary 08/24/18 10:19 Knee - Left Anaerobic Culture - Preliminary 08/24/18 10:18 Knee - Left Anaerobic Culture - Preliminary 08/24/18 10:18 Knee - Left Gram Stain - Preliminary 08/24/18 10:18 Knee - Left Wound Culture - Final 08/24/18 10:19 Knee - Left Gram Stain - Preliminary 08/24/18 10:19 Knee - Left Wound Culture - Final Assessment and Plan (1) Status post total left knee replacement Current Visit: No Status: Acute Code(s): Z96.652 - PRESENCE OF LEFT ARTIFICIAL KNEE JOINT SNOMED Code(s): 2154970419355 (2) Infection of total left knee replacement Narrative/Plan: 62-year-old woman presents to hospital with sudden onset of increasing pain to her left knee. Occurring approximately 2 weeks after her total knee arthroplasty. She is doing very well. She does relate that she had a day of significant amount of activity and then the next day noted significant change in that she was not able to bear weight because of pain. With concerns to an infection at that site she's taken to the operating room where the hematoma was removed polyethylene exchange occurred and cultures were obtained. Antibiotic therapy will continue with cefazolin for now until we have further data. Concerns to an infected hematoma, infected joint, or simple noninfected hematoma. Cultures will drive the course of antibiotic therapy in the next short period of time. Laboratories requested. August 25 2018 patient is improved today. Pain is much improved. Gram stains are negative of the aspiration of the left knee. Cultures are negative so far. If cultures remain negative next day one consider transition to oral antibiotic therapy and follow up in the outpatient setting. Current Visit: No Status: Acute Code(s): T84.54XA - INFECT/INFLM REACTION DUE TO INTERNAL LEFT KNEE PROSTH, INIT SNOMED Code(s): 638438802
[2018-08-26 02:06] VITALS: PULSE 77
[2018-08-26] MEDS: ceFAZolin IN SWFI 2 GM/20 ML SYRINGE IVP SCH ×2 (02:37→10:10)
[2018-08-26] MEDS: LACTATED RINGERS 1,000 ML IV SCH (02:43)
[2018-08-26 03:22] VITALS: RESP 12
[2018-08-26 07:51] VITALS: BP 146/81; TEMP 98.8
[2018-08-26] MEDS: ASPIRIN 81 MG PO SCH (08:37)
[2018-08-26] MEDS: HYDROcodone/APAP 5-325MG 1 EACH TAB PO PRN (08:37)
[2018-08-26] MEDS: APIXABAN 2.5 MG TABLET PO SCH (08:37)
[2018-08-26] MEDS: traMADol 50 MG TAB PO SCH ×2 (08:38→11:36)
[2018-08-26 09:47] LABS: Basophils # (A) 0.1 k/uL (0-0.2); Basophils % (A) 1 %; Eosinophils # (A) 0.7 k/uL (0-0.7); Eosinophils % (A) 7 %; HCT 32.1 % (34.0-46.0); HGB 10.6 gm/dL (11.4-16.0); Hypochromasia Slight; Lymphocytes # (A) 1.3 k/uL (1.0-4.8); Lymphocytes % (A) 13 %; MCH 29.5 pg (25.0-35.0); MCHC 32.8 g/dL (31.0-37.0); MCV 89.8 fL (80.0-100.0); Mean Platelet Volume 7.5; Monocytes # (A) 0.5 k/uL (0-1.0); Monocytes % (A) 5 %; Neutrophils # (A) 7.2 k/uL (1.3-7.7); Neutrophils % (A) 73 %; Platelet Count 553 k/uL (150-450); RBC 3.58 m/uL (3.80-5.40); RDW 14.6 % (11.5-15.5); WBC 9.9 k/uL (3.8-10.6)
--- NOTE | 2018-08-26 10:02 | P.PN ---
Subjective Progress Note Date: 08/26/18 Principal diagnosis: Status post incision and drainage left total knee arthroplasty/hematoma The patient notes continued improvement regarding her pain. Otherwise she feels well. Objective - Vital Signs Vital signs: Vital Signs Temp 98.8 F 08/26/18 06:56 Pulse 77 08/26/18 07:41 Resp 12 08/26/18 07:41 BP 146/81 08/26/18 06:56 Pulse Ox 98 08/26/18 06:56 Intake & Output 08/25/18 08/26/18 08/26/18 18:59 06:59 18:59 Intake Total 530 180 Balance 530 180 Weight 102.058 kg Intake: Intake, IV Titration 350 Amount Lactated Ringers 1,000 ml 350 @ 50 mls/hr IV .Q20H DEBBIE Rx#:[id number] Oral 180 180 Other: Voiding Method Toilet Toilet Toilet # Voids 3 2 - Integumentary Integumentary Comment(s): Incision clean, dry, intact. No warmth or erythema. - Musculoskeletal Musculoskeletal Comment(s): Manuel's negative left lower extremity. Her distal neurovascular exam is intact left lower extremity. - Labs CBC & Chem 7: 08/26/18 08:24 08/25/18 07:02 Labs: Abnormal Lab Results - Last 24 Hours (Table) 08/25/18 08/26/18 08/26/18 Range/Units 07:02 08:24 08:24 RBC 3.58 L (3.80-5.40) m/uL Hgb 10.6 L (11.4-16.0) gm/dL Hct 32.1 L (34.0-46.0) % Plt Count 553 H (150-450) k/uL ESR 25 H (0-20) mm/hr C-Reactive Protein 28.3 H (<10.0) mg/L Microbiology - Last 24 Hours (Table) 08/24/18 10:18 Gram Stain - Preliminary Knee - Left Wound Culture - Preliminary 08/24/18 10:19 Gram Stain - Preliminary Knee - Left Wound Culture - Preliminary Assessment and Plan Assessment: Status post incision and drainage left total knee are plasty/hematoma Plan: Clinically she continues to improve. I anticipate she will start oral antibiotic today and potentially go home this afternoon on oral antibiotics. Follow-up [address] [place]. Weightbearing as tolerated with use of walker. Time with Patient: Less than 30
[2018-08-26 15:12] LABS: Erythrocyte Sedimentation Rate 56 mm/hr (0-20)
--- NOTE | 2018-08-26 20:06 | PN ---
PROGRESS NOTE DATE OF SERVICE: 08/26/2018 CHIEF COMPLAINT: Infected left knee prosthesis. HISTORY OF PRESENT ILLNESS: This lady is doing fairly well. The pain is under good control. She has had no fever chills and she expects to go home today. PHYSICAL EXAM: Chest is clear. Cardiac exam is normal. The leg appears to be normal and drain is in place. IMPRESSION: Infected left knee prosthesis. PLAN: Possibly home today. MMODL / IJN: [id number] /
== END 2018-08-26 12:51 | disposition home health service (06) | DRG 467 ==
LOC: 2ORMAIN 07:42 → 4SSUR 11:10
PROVIDERS: ADMIT Orthopaedic Surgery; ATTEND Orthopaedic Surgery
PROC: 0SRW0JZ Replacement of Left Knee Joint, Tibial Surface with Synthetic Substitute, Open Approach (ICD-10-PCS; 2018-08-24)
PROC: 0SPW0JZ Removal of Synthetic Substitute from Left Knee Joint, Tibial Surface, Open Approach (ICD-10-PCS; principal; 2018-08-24 09:30)
DX: T84.54XA Infection and inflammatory reaction due to internal left knee prosthesis, initial encounter (principal); M96.840 Postprocedural hematoma of a musculoskeletal structure following a musculoskeletal system procedure; E78.00 Pure hypercholesterolemia, unspecified; I10 Essential (primary) hypertension; J45.909 Unspecified asthma, uncomplicated; E78.5 Hyperlipidemia, unspecified; Y79.2 Prosthetic and other implants, materials and accessory orthopedic devices associated with adverse incidents; Z79.899 Other long term (current) drug therapy; Z88.8 Allergy status to other drugs, medicaments and biological substances; Z82.49 Family history of ischemic heart disease and other diseases of the circulatory system; Z88.5 Allergy status to narcotic agent
CPT/HCPCS: 80048; 85025; 85652; 86140; 87070; 87075; 87205

== ENCOUNTER → 2018-09-12 | Outpatient (CLI) | payer OTHER ==
[2018-09-12 10:52] LABS: Basophils # (A) 0.1 k/uL (0-0.2); Basophils % (A) 1 %; Eosinophils # (A) 0.3 k/uL (0-0.7); Eosinophils % (A) 5 %; HCT 37.3 % (34.0-46.0); HGB 11.5 gm/dL (11.4-16.0); Hypochromasia Slight; Lymphocytes # (A) 0.9 k/uL (1.0-4.8); Lymphocytes % (A) 13 %; MCH 28.4 pg (25.0-35.0); MCHC 30.7 g/dL (31.0-37.0); MCV 92.5 fL (80.0-100.0); Mean Platelet Volume 7.3; Monocytes # (A) 0.3 k/uL (0-1.0); Monocytes % (A) 5 %; Neutrophils # (A) 5.1 k/uL (1.3-7.7); Neutrophils % (A) 75 %; Platelet Count 344 k/uL (150-450); RBC 4.03 m/uL (3.80-5.40); RDW 15.1 % (11.5-15.5); WBC 6.8 k/uL (3.8-10.6)
[2018-09-12 12:19] LABS: Erythrocyte Sedimentation Rate 28 mm/hr (0-20)
== END | disposition home or self-care (01) ==
LOC: LABWHC1 09:45
PROVIDERS: ATTEND Orthopaedic Surgery
DX: M25.50 Pain in unspecified joint (principal)
CPT/HCPCS: 36415; 85025; 85652; 86140

== ENCOUNTER → 2019-03-25 | Outpatient (CLI) | payer OTHER ==
[2019-03-25 09:47] LABS: Basophils # (A) 0.1 k/uL (0-0.2); Basophils % (A) 1 %; Eosinophils # (A) 0.3 k/uL (0-0.7); Eosinophils % (A) 6 %; HCT 44.3 % (34.0-46.0); HGB 14.4 gm/dL (11.4-16.0); Lymphocytes # (A) 1.1 k/uL (1.0-4.8); Lymphocytes % (A) 19 %; MCH 28.6 pg (25.0-35.0); MCHC 32.4 g/dL (31.0-37.0); MCV 88.1 fL (80.0-100.0); Mean Platelet Volume 7.7; Monocytes # (A) 0.3 k/uL (0-1.0); Monocytes % (A) 5 %; Neutrophils # (A) 4.1 k/uL (1.3-7.7); Neutrophils % (A) 68 %; Platelet Count 284 k/uL (150-450); RBC 5.03 m/uL (3.80-5.40); RDW 13.3 % (11.5-15.5); WBC 5.9 k/uL (3.8-10.6)
[2019-03-25 16:40] LABS: African American GFR (CKD) 107.6 (60.0-200.0); Albumin 4.5 g/dL (3.80-4.90); Albumin/Globulin Ratio 2.37 (1.60-3.17); Anion Gap 7.4 mmol/L (4.00-12.00); BUN/Creat Ratio 22.86 Ratio (12.00-20.00); Calcium 9.6 mg/dL (8.7-10.3); Carbon Dioxide 27.6 mmol/L (21.6-31.8); Chol/HDL Ratio 3.61; Globulin 1.9 g/dL (1.6-3.3); LDL Cholesterol,Calculated 180.2 mg/dL (0.0-131.0); Non-African American GFR(CKD) 92.9 (60.0-200.0); Potassium 4.2 mmol/L (3.5-5.5); Total Bilirubin 0.6 mg/dL (0.2-1.2); Total Protein 6.4 g/dL (6.2-8.2); VLDL Calculation 17.8 mg/dL (5.00-40.00)
[2019-03-25 16:47] LABS: T4, Free (Free Thyroxine) 1.1 ng/dL (0.80-1.80)
== END | disposition home or self-care (01) ==
LOC: LABWHC1 09:14
PROVIDERS: ATTEND Family Medicine
DX: Z00.00 Encounter for general adult medical examination without abnormal findings (principal); E55.9 Vitamin D deficiency, unspecified; E78.5 Hyperlipidemia, unspecified; R53.83 Other fatigue; Z13.220 Encounter for screening for lipoid disorders
CPT/HCPCS: 36415; 80053; 80061; 82306; 84439; 84443; 85025

== ENCOUNTER → 2019-05-09 | Outpatient (CLI) | payer OTHER ==
--- NOTE | 2019-05-10 11:17 | MM ---
Reason for exam: screening (asymptomatic). Last mammogram was performed 2 years and 1 month ago. History: Patient is postmenopausal. Family history of breast cancer in maternal grandmother at age 87. Stereotactic core biopsy of the left breast, 2014. Physical Findings: A clinical breast exam by your physician is recommended on an annual basis and results should be correlated with mammographic findings. MG Screening Mammo w CAD Bilateral CC and MLO view(s) were taken. Prior study comparison: April 13, 2017, bilateral MG screening mammo w CAD. March 09, 2016, bilateral MG screening mammo w CAD. There are scattered fibroglandular densities. No suspicious abnormality. Left biopsy marker noted. No significant changes when compared with prior studies. ASSESSMENT: Negative, BI-RAD 1 RECOMMENDATION: Routine screening mammogram of both breasts in 1 year.
== END | disposition home or self-care (01) ==
LOC: RADMAMWWP 08:43
PROVIDERS: ATTEND Obstetrics & Gynecology
DX: Z12.31 Encounter for screening mammogram for malignant neoplasm of breast (principal); Z80.3 Family history of malignant neoplasm of breast
CPT/HCPCS: 77067

== ENCOUNTER → 2020-05-20 | Outpatient (CLI) | payer OTHER ==
[2020-05-20 18:32] LABS: Basophils # (A) 0.07 X 10*3/uL (0.00-0.10); Basophils % (A) 1.2 %; Eosinophils # (A) 0.32 X 10*3/uL (0.04-0.35); Eosinophils % (A) 5.4 %; HCT 44.3 % (37.2-46.3); HGB 13.9 g/dL (12.0-15.0); Lymphocytes # (A) 1.27 X 10*3/uL (0.90-5.00); Lymphocytes % (A) 21.3 %; MCH 28.7 pg (27.0-32.0); MCHC 31.4 g/dL (32.0-37.0); MCV 91.5 fL (80.0-97.0); Mean Platelet Volume 11.2 fL (9.5-12.2); Monocytes # (A) 0.49 X 10*3/uL (0.20-1.00); Monocytes % (A) 8.2 %; Neutrophils # (A) 3.79 X 10*3/uL (1.80-7.70); Neutrophils % (A) 63.6 %; Platelet Count 287 X 10*3/uL (140-440); RBC 4.84 X 10*6/uL (4.10-5.20); RDW 13.2 % (11.5-14.5); WBC 5.96 X 10*3/uL (4.50-10.00)
[2020-05-20 21:03] LABS: African American GFR (CKD) 106.9 (60.0-200.0); Albumin 4.7 g/dL (3.80-4.90); Albumin/Globulin Ratio 2.24 (1.60-3.17); Anion Gap 9.1 mmol/L (4.00-12.00); BUN/Creat Ratio 28.57 Ratio (12.00-20.00); Calcium 9.2 mg/dL (8.7-10.3); Carbon Dioxide 26.9 mmol/L (21.6-31.8); Chol/HDL Ratio 3.9; Globulin 2.1 g/dL (1.6-3.3); LDL Cholesterol,Calculated 175.6 mg/dL (0.0-131.0); Non-African American GFR(CKD) 92.2 (60.0-200.0); Potassium 4.4 mmol/L (3.5-5.5); Total Bilirubin 0.8 mg/dL (0.2-1.2); Total Protein 6.8 g/dL (6.2-8.2); VLDL Calculation 21.4 mg/dL (5.00-40.00)
[2020-05-20 21:09] LABS: T4, Free (Free Thyroxine) 1.1 ng/dL (0.80-1.80)
== END | disposition home or self-care (01) ==
LOC: LABWHC1 09:07
PROVIDERS: ATTEND Family Medicine
DX: Z00.00 Encounter for general adult medical examination without abnormal findings (principal); E78.5 Hyperlipidemia, unspecified; E55.9 Vitamin D deficiency, unspecified; Z13.220 Encounter for screening for lipoid disorders; R53.83 Other fatigue
CPT/HCPCS: 36415; 80053; 80061; 82306; 84439; 84443; 85025

== ENCOUNTER → 2020-07-09 | Outpatient (CLI) | payer OTHER ==
--- NOTE | 2020-07-13 11:52 | MM ---
Reason for exam: screening (asymptomatic). Last mammogram was performed 1 year and 2 months ago. History: Patient is postmenopausal. Family history of breast cancer in maternal grandmother at age 87. Stereotactic core biopsy of the left breast, 2014. Physical Findings: A clinical breast exam by your physician is recommended on an annual basis and results should be correlated with mammographic findings. MG Screening Mammo w CAD Bilateral CC and MLO view(s) were taken. Prior study comparison: May 09, 2019, bilateral MG screening mammo w CAD. April 13, 2017, bilateral MG screening mammo w CAD. There are scattered fibroglandular densities. Previous mammotome biopsy in the left breast. No significant changes when compared with prior studies. ASSESSMENT: Benign, BI-RAD 2 RECOMMENDATION: Routine screening mammogram of both breasts in 1 year.
== END | disposition home or self-care (01) ==
LOC: RADMAMWWP 08:33
PROVIDERS: ATTEND Family Medicine
DX: Z12.31 Encounter for screening mammogram for malignant neoplasm of breast (principal); Z80.3 Family history of malignant neoplasm of breast; Z78.0 Asymptomatic menopausal state
CPT/HCPCS: 77067

== ENCOUNTER → 2021-05-25 | Outpatient (CLI) | payer OTHER ==
--- NOTE | 2021-05-25 12:51 | CT ---
EXAMINATION TYPE: CT abdomen pelvis wo con DATE OF EXAM: 05/25/2021 COMPARISON: No previous CT scan is available for comparison. HISTORY: RUQ pain, Abdominal distention and Epigastric pain CT DLP: 899.70 mGycm Automated exposure control for dose reduction was used. TECHNIQUE: Helical acquisition of images was performed from the lung bases through the pelvis. No IV contrast administration. FINDINGS: LUNG BASES: No significant abnormality is appreciated. LIVER/GB: No definite hepatic focal lesion. No radiodense gallbladder calculi. No pericholecystic flu id or fat stranding. No intra or extrahepatic biliary tree dilatation. PANCREAS: Mild swelling of the pancreatic tail with surrounding fat stranding and minimal reactive fl uid suggestive of the acute pancreatitis. No sizable collection. Pancreatic necrosis can't be exclude d by this nonenhanced CT scan. Grossly unremarkable remainder of the pancreas. SPLEEN: No significant abnormality is seen. ADRENALS: No significant abnormality is seen. KIDNEYS: No significant abnormality is seen. FREE AIR: No free air is visualized RETROPERITONEAL ADENOPATHY: None visualized REPRODUCTIVE ORGANS: No significant abnormality is seen URINARY BLADDER: Not completely distended. PELVIC ADENOPATHY: None visualized. OSSEOUS STRUCTURES: Degenerative changes of the lower thoracic and lumbar spine. BOWEL: Colonic diverticulosis without evidence acute diverticulitis. Unremarkable small bowel. OTHER: No sizable ascites. IMPRESSION: MILD ACUTE INFLAMMATORY CHANGES SURROUNDING THE PANCREATIC TAIL DESCRIBED ABOVE SUGGESTIVE OF ACUT E FOCAL PANCREATITIS. GROSSLY UNREMARKABLE REMAINDER OF THE PANCREAS. PANCREATIC NECROSIS CANNOT BE A SSESSED BY THIS NONENHANCED CT SCAN. INCIDENTAL FINDINGS DESCRIBED ABOVE.
== END | disposition home or self-care (01) ==
LOC: RADCTMAIN 10:49
PROVIDERS: ATTEND Family Medicine
DX: K85.90 Acute pancreatitis without necrosis or infection, unspecified (principal)
CPT/HCPCS: 74176

== ENCOUNTER → 2021-06-09 | Outpatient (CLI) | payer OTHER ==
--- NOTE | 2021-06-09 10:54 | MR ---
EXAMINATION TYPE: MR MRCP DATE OF EXAM: 06/09/2021 COMPARISON: CT abdomen and pelvis 15 days ago. HISTORY: Possible Gallstones, Elevated Bilirubin, pain Standard multiplanar, multisequence MRI departmental protocol Multiplanar, multisequence images of the abdomen were acquired without contrast. Diffusion weighted i maging was performed. Thin and thick slice MRCP imaging performed on independent workstation. FINDINGS: Liver/gallbladder/pancreas/biliary system: There are multiple small dependent gallstones on MRI not c learly seen on CT. No abnormal gallbladder wall thickening or surrounding fluid or fat stranding. [place] er is normal in size without concerning solid or cystic mass. Pancreas is normal in size without conc erning solid or cystic mass. MRCP imaging shows Common bile duct measures up to 7 mm which is upper l imits of normal. There is no abnormal intrahepatic or extrahepatic biliary dilatation. There is focal moderate narrowing near junction of the right and left hepatic ducts on image 49 with mild left-side d central intrahepatic biliary dilatation up to 4 to 5 mm. No right-sided biliary dilatation. No CBD gallstone. Gradual tapering towards the ampulla. Pancreatic duct appears not dilated. Other: Lung bases are grossly clear. The spleen and both adrenal glands appear within normal limits . There are a few tiny subcentimeter thin-walled cysts scattered throughout both kidneys. No suspicio us small or large bowel dilatation. A few scattered colonic diverticula. Visualized osseous structure s are intact. Focal disc space narrowing with endplate changes right L3-L4 and left L4-L5 levels. IMPRESSION: Confirmation of multiple small gallstones. No CBD stone. Mild left central intrahepatic b iliary dilatation possibly due to focal stricture just before the [place] hepatis. No right sided intra hepatic or extrahepatic biliary dilatation.
== END | disposition home or self-care (01) ==
LOC: RADMRIMAIN 06:38
PROVIDERS: ATTEND Family Medicine
DX: K80.20 Calculus of gallbladder without cholecystitis without obstruction (principal)
CPT/HCPCS: 74181

== ENCOUNTER → 2021-07-10 | Outpatient (CLI) | payer OTHER ==
--- NOTE | 2021-07-10 10:43 | MR ---
EXAMINATION TYPE: MR MRCP DATE OF EXAM: 07/10/2021 COMPARISON: 05/12/2021 HISTORY: Intrahepatic bile duct dilation, F/U comparison to MRCP 06-09-21. Standard multiplanar, multisequence MRI departmental protocol Multiplanar, multisequence images of the abdomen were acquired without contrast. Diffusion weighted i maging was performed. Thin and thick slice MRCP imaging performed on independent workstation. FINDINGS: Again noted are multiple small gallstones. There is no evidence for gallbladder hydrops, wall thicken ing or pericholecystic fluid. Common bile duct again measures 7 mm which is at the upper limits of no rmal for this patient's age group. Mild left-sided intrahepatic biliary ductal prominence is redemons trated possibly related to a stricture as described previously.. The liver is homogeneous and free of mass lesion. The pancreas demonstrates normal morphology without evidence for mass or inflammatory process. The spleen is of normal size. Adrenal glands are free of lesion. Kidneys are symmetric. Subcentimeter left renal cortical cysts noted. No evidence for adenopa thy within the upper abdomen. Abdominal aorta is of normal caliber. IMPRESSION: Stable evaluation of the biliary tree as noted above.
== END | disposition home or self-care (01) ==
LOC: RADMRIMAIN 09:32
PROVIDERS: ATTEND Family Medicine
DX: K83.8 Other specified diseases of biliary tract (principal)
CPT/HCPCS: 74181

== ENCOUNTER → 2021-08-20 | Outpatient (CLI) | payer OTHER ==
[2021-08-20 21:09] LABS: Chol/HDL Ratio 3.19 Ratio; Glucose 101 mg/dL (70-110)
== END | disposition home or self-care (01) ==
LOC: LABWHC1 10:21
PROVIDERS: ATTEND Physician Assistant
DX: Z00.00 Encounter for general adult medical examination without abnormal findings (principal); E78.5 Hyperlipidemia, unspecified
CPT/HCPCS: 36415; 80061; 82947; 84439; 84443

== ENCOUNTER → 2021-09-01 | Outpatient (CLI) | payer OTHER ==
--- NOTE | 2021-09-07 10:31 | MM ---
Reason for Exam: Screening (asymptomatic). Last mammogram was performed 1 year(s) and 2 month(s) ago. Patient History: Menarche at age 11. First Full-Term at age 28. Postmenopausal. 2014, Stereotactic Core Biopsy on the Left side. Maternal grandmother had breast cancer, age 87. Risk Values: Светлана 5 year model risk: 2.3%. NCI Lifetime model risk: 9.2%. Prior Study Comparison: 04/13/2017 Bilateral Screening Mammogram, [facility]. 05/09/2019 Bilateral Screening Mammogram, [facility]. 07/09/2020 Bilateral Screening Mammogram, [facility]. Tissue Density: There are scattered fibroglandular densities. Findings: Analyzed By CAD. No significant mass, suspicious microcalcification, or other discrete abnormality is seen. Microclip left breast from prior biopsy. Overall Assessment: Negative, BI-RAD 1 Management: Screening Mammogram of both breasts in 1 year. 1. A clinical breast exam by your physician is recommended on an annual basis and results should be correlated with mammographic findings. 2. The patient should continue monthly self breast exams. 3. A negative mammogram should not preclude additional follow-up of suspicious palpable abnormalities. Electronically signed and approved by: Asha Casper M.D. Radiologist
== END | disposition home or self-care (01) ==
LOC: RADMAMWWP 16:05
PROVIDERS: ATTEND Family Medicine
DX: Z12.31 Encounter for screening mammogram for malignant neoplasm of breast (principal); Z78.0 Asymptomatic menopausal state; Z80.3 Family history of malignant neoplasm of breast
CPT/HCPCS: 77067

== ENCOUNTER 2021-11-16 02:59 | Inpatient (IN) | payer OTHER ==
[2021-11-16] MEDS ORDERED: SODIUM CHLORIDE 0.9% 1,000 ML IV STA (04:16)
[2021-11-16] MEDS ORDERED: ONDANSETRON 4 MG/2 ML VIAL IVP STA (04:16)
[2021-11-16] MEDS ORDERED: HYDROmorphone 1 MG/ML 1 ML SYRINGE IVP STA (04:17)
--- NOTE | 2021-11-16 04:46 | ED ---
Abdominal Pain HPI - General Chief Complaint: Abdominal Pain Stated Complaint: Abdominal pain Time Seen by Provider: 11/16/21 03:50 Source: patient, RN notes reviewed, old records reviewed Mode of arrival: ambulatory Limitations: no limitations - History of Present Illness Initial Comments: This is a 66-year-old female DF for evaluation. Onset sided abdominal pain radiates to her back severe abdominal pain right upper quadrant and epigastric. Patient is positive nausea no vomiting no fevers. No recent surgeries or any other complaints MD Complaint: abdominal pain -: hour(s) Location: RUQ, epigastric Radiation: back Migration to: no migration Severity: moderate Severity scale (1-10): 7 Quality: sharp Consistency: constant Improves With: nothing Worsens With: nothing Associated Symptoms: nausea Treatments Prior to Arrival: other (0) - Related Data Home Medications Medication Instructions Recorded Confirmed methylPREDNISolone Dose Pack 4 mg PO DIRECTED 08/23/18 08/23/18 [Medrol Dose Pack] Ergocalciferol [Vitamin D2] 50,000 unit PO Q30D 08/24/18 08/24/18 Previous Rx's Medication Instructions Recorded Hydrocodone/Acetaminophen [[place] 1 - 2 each PO Q6HR PRN #40 tab 08/08/18 5-325] Aspirin 81 mg PO BID #14 chewable 08/26/18 cefaDROXiL [Duricef Susp] 500 mg PO Q12HR #14 ml 08/26/18 Allergies Allergy/AdvReac Type Severity Reaction Status Date / Time morphine Allergy Rash/Hives Verified 11/16/21 03:02 atorvastatin [From Lipitor] AdvReac Nausea & Verified 11/16/21 03:02 Vomiting Review of Systems ROS Statement: Those systems with pertinent positive or pertinent negative responses have been documented in the HPI. ROS Other: All systems not noted in ROS Statement are negative. Past Medical History Past Medical History: Asthma, Hyperlipidemia, Hypertension, Osteoarthritis (OA) Additional Past Medical History / Comment(s): ASTHMA RESOLVED. BLOOD PRESSURE RX (AMLODIPINE, BENAZEPRIL, CHLORTHALIDONE) ON HOLD FOR PAST WEEK D/T FEELING FAINT ON ARISING. BEGAN STEROID PACK 08/22/18, TOLD TO HOLD AFTER AM DOSE TODAY. SWELLING IN LT KNEE/LEG SINCE SURGERY 08/07/18; USING WHEELCHAIR NOW D/T NWB. History of Any Multi-Drug Resistant Organisms: None Reported Past Surgical History: Section, Hernia Repair, Joint Replacement Additional Past Surgical History / Comment(s): Umbilical, Hemorrhoidectomy, D&C, Colonoscopy. TOTAL LT KNEE 08/07/18 Past Anesthesia/Blood Transfusion Reactions: Postoperative Nausea & Vomiting (PONV) Past Psychological History: No Psychological Hx Reported Smoking Status: Never smoker Past Alcohol Use History: Occasional Past Drug Use History: None Reported - Past Family History Mother Family Medical History: Hypertension Additional Family Medical History / Comment(s): Subdural Hematoma General Exam Limitations: no limitations General appearance: alert, in no apparent distress Head exam: Present: atraumatic, normocephalic, normal inspection Eye exam: Present: normal appearance, PERRL, EOMI. Absent: scleral icterus, conjunctival injection, periorbital swelling ENT exam: Present: normal exam, mucous membranes moist Neck exam: Present: normal inspection. Absent: tenderness, meningismus, lymphadenopathy Respiratory exam: Present: normal lung sounds bilaterally. Absent: respiratory distress, wheezes, rales, rhonchi, stridor Cardiovascular Exam: Present: regular rate, normal rhythm, normal heart sounds. Absent: systolic murmur, diastolic murmur, rubs, gallop, clicks GI/Abdominal exam: Present: soft, tenderness, guarding, normal bowel sounds. Absent: distended, rebound, rigid Extremities exam: Present: normal inspection, full ROM, normal capillary refill. Absent: tenderness, pedal edema, joint swelling, calf tenderness Back exam: Present: normal inspection Neurological exam: Present: alert, oriented X3, CN II-XII intact Psychiatric exam: Present: normal affect, normal mood Skin exam: Present: warm, dry, intact, normal color. Absent: rash Course Vital Signs 11/16/21 03:02 Temperature 97.7 F Pulse Rate 66 Respiratory 16 Rate Blood Pressure 144/68 O2 Sat by Pulse 99 Oximetry - Reevaluation(s) Reevaluation #1: 11/16/21 05:37 Medical record is reviewed Reevaluation #2: 11/16/21 05:37 Patient has adequate pain control Reevaluation #3: 11/16/21 05:37 Patient informed of results and questions answered - Consultations Consultation #1: Spoke with Dr. Elliott who agrees to admit the patient Medical Decision Making - Medical Decision Making 66 female to the ER for evaluation. Patient resents today for evaluation of abdominal pain patient does have acute cholecystitis we will admit for surgical consultation evaluation - Lab Data Result diagrams: 11/16/21 04:49 11/16/21 04:49 Lab Results 11/16/21 11/16/21 11/16/21 Range/Units 04:49 04:49 04:49 WBC 11.3 H (3.8-10.6) k/uL RBC 4.55 (3.80-5.40) m/uL Hgb 13.8 (11.4-16.0) gm/dL Hct 41.6 (34.0-46.0) % MCV 91.4 (80.0-100.0) fL MCH 30.3 (25.0-35.0) pg MCHC 33.2 (31.0-37.0) g/dL RDW 12.6 (11.5-15.5) % Plt Count 240 (150-450) k/uL MPV 8.2 Neutrophils % 85 % Lymphocytes % 8 % Monocytes % 5 % Eosinophils % 1 % Basophils % 1 % Neutrophils # 9.6 H (1.3-7.7) k/uL Lymphocytes # 0.9 L (1.0-4.8) k/uL Monocytes # 0.6 (0-1.0) k/uL Eosinophils # 0.1 (0-0.7) k/uL Basophils # 0.1 (0-0.2) k/uL PT 10.1 (9.0-12.0) sec INR 0.9 (<1.2) APTT 26.9 (22.0-30.0) sec Sodium 139 (137-145) mmol/L Potassium 4.1 (3.5-5.1) mmol/L Chloride 101 (98-107) mmol/L Carbon Dioxide 26 (22-30) mmol/L Anion Gap 12 mmol/L BUN 27 H (7-17) mg/dL Creatinine 0.84 (0.52-1.04) mg/dL Est GFR (CKD-EPI)AfAm 84 (>60 ml/min/1.73 sqM) Est GFR (CKD-EPI)NonAf 73 (>60 ml/min/1.73 sqM) Glucose 136 H (74-99) mg/dL Calcium 9.8 (8.4-10.2) mg/dL Total Bilirubin 1.5 H (0.2-1.3) mg/dL AST 151 H (14-36) U/L ALT 78 H (4-34) U/L Alkaline Phosphatase 108 (38-126) U/L Total Protein 7.6 (6.3-8.2) g/dL Albumin 4.6 (3.5-5.0) g/dL Amylase 59 (30-110) U/L Lipase 242 (23-300) U/L Urine Color Urine Appearance (Clear) Urine pH (5.0-8.0) Ur Specific [place] (1.001-1.035) Urine Protein (Negative) Urine Glucose (UA) (Negative) Urine Ketones (Negative) Urine Blood (Negative) Urine Nitrite (Negative) Urine Bilirubin (Negative) Urine Urobilinogen (<2.0) mg/dL Ur Leukocyte Esterase (Negative) 11/16/21 Range/Units 04:49 WBC (3.8-10.6) k/uL RBC (3.80-5.40) m/uL Hgb (11.4-16.0) gm/dL Hct (34.0-46.0) % MCV (80.0-100.0) fL MCH (25.0-35.0) pg MCHC (31.0-37.0) g/dL RDW (11.5-15.5) % Plt Count (150-450) k/uL MPV Neutrophils % % Lymphocytes % % Monocytes % % Eosinophils % % Basophils % % Neutrophils # (1.3-7.7) k/uL Lymphocytes # (1.0-4.8) k/uL Monocytes # (0-1.0) k/uL Eosinophils # (0-0.7) k/uL Basophils # (0-0.2) k/uL PT (9.0-12.0) sec INR (<1.2) APTT (22.0-30.0) sec Sodium (137-145) mmol/L Potassium (3.5-5.1) mmol/L Chloride (98-107) mmol/L Carbon Dioxide (22-30) mmol/L Anion Gap mmol/L BUN (7-17) mg/dL Creatinine (0.52-1.04) mg/dL Est GFR (CKD-EPI)AfAm (>60 ml/min/1.73 sqM) Est GFR (CKD-EPI)NonAf (>60 ml/min/1.73 sqM) Glucose (74-99) mg/dL Calcium (8.4-10.2) mg/dL Total Bilirubin (0.2-1.3) mg/dL AST (14-36) U/L ALT (4-34) U/L Alkaline Phosphatase (38-126) U/L Total Protein (6.3-8.2) g/dL Albumin (3.5-5.0) g/dL Amylase (30-110) U/L Lipase (23-300) U/L Urine Color Yellow Urine Appearance Clear (Clear) Urine pH 6.5 (5.0-8.0) Ur Specific [place] 1.020 (1.001-1.035) Urine Protein Negative (Negative) Urine Glucose (UA) Negative (Negative) Urine Ketones Negative (Negative) Urine Blood Negative (Negative) Urine Nitrite Negative (Negative) Urine Bilirubin Negative (Negative) Urine Urobilinogen 4.0 (<2.0) mg/dL Ur Leukocyte Esterase Negative (Negative) - Radiology Data Radiology results: report reviewed (CT head and pelvis is positive for likely acute cholecystitis), image reviewed Disposition Clinical Impression: Abdominal pain, Cholecystitis Disposition: ADMITTED IP TO THIS HOSP Condition: Good Is patient prescribed a controlled substance at d/c from ED?: No Referrals: Archie Doherty MD [Primary Care Provider] - 1-2 days Time of Disposition: 05:35
[2021-11-16 05:07] LABS: Basophils # (A) 0.1 k/uL (0-0.2); Basophils % (A) 1 %; Eosinophils # (A) 0.1 k/uL (0-0.7); Eosinophils % (A) 1 %; HCT 41.6 % (34.0-46.0); HGB 13.8 gm/dL (11.4-16.0); Lymphocytes # (A) 0.9 k/uL (1.0-4.8); Lymphocytes % (A) 8 %; MCH 30.3 pg (25.0-35.0); MCHC 33.2 g/dL (31.0-37.0); MCV 91.4 fL (80.0-100.0); Mean Platelet Volume 8.2; Monocytes # (A) 0.6 k/uL (0-1.0); Monocytes % (A) 5 %; Neutrophils # (A) 9.6 k/uL (1.3-7.7); Neutrophils % (A) 85 %; Platelet Count 240 k/uL (150-450); RBC 4.55 m/uL (3.80-5.40); RDW 12.6 % (11.5-15.5); WBC 11.3 k/uL (3.8-10.6)
[2021-11-16 05:08] LABS: Appearance,Urine Clear (Clear); Bilirubin,Urine Negative (Negative); Blood,Urine Negative (Negative); Color,Urine Yellow; Glucose,Urine (UA) Negative (Negative); Ketones,Urine Negative (Negative); Leukocyte Esterase,Urine Negative (Negative); Nitrite,Urine Negative (Negative); PH, Urine 6.5 (5.0-8.0); Protein,Urine Negative (Negative)
[2021-11-16 05:18] LABS: Albumin 4.6 g/dL (3.5-5.0); Calcium 9.8 mg/dL (8.4-10.2); Potassium 4.1 mmol/L (3.5-5.1); Total Bilirubin 1.5 mg/dL (0.2-1.3); Total Protein 7.6 g/dL (6.3-8.2)
[2021-11-16 05:21] LABS: INR 0.9 (<1.2); Partial Thromboplastin Time 26.9 sec (22.0-30.0); Prothrombin Time 10.1 sec (9.0-12.0)
--- NOTE | 2021-11-16 05:31 | CT ---
EXAMINATION TYPE: CT abdomen pelvis wo con DATE OF EXAM: 11/16/2021 HISTORY: abdominal pain not further specified CT DLP: 821.1 mGycm. Automated Exposure Control for Dose Reduction was Utilized. TECHNIQUE: CT scan of the abdomen and pelvis is performed without oral or IV contrast. COMPARISON: CT abdomen and pelvis May 25, 2021. MRCP July 10, 2021. FINDINGS: Within the limitations of a non-contrast study, the following observations are made. LUNG BASES: There is 5 mm calcified nodule or benign granuloma left lower lobe axial image 3. LIVER/GB: Gallbladder has some distended margins without surrounding fluid or fat stranding. Mild to moderate central intrahepatic and extrahepatic biliary dilatation slightly more prominent from prior CT and MRI noted. PANCREAS: Pancreas normal in size without surrounding fat stranding or ill-defined fluid. No ductal d ilatation is evident. SPLEEN: No significant abnormality is seen. ADRENALS: No significant abnormality is seen. KIDNEYS: No no stones or hydronephrosis seen bilaterally. BOWEL: Diverticula in the left and sigmoid colon. No CT evidence for acute diverticulitis. No suspici ous small enlarged bowel dilatation. Normal-appearing appendix from base of cecum. GENITAL ORGANS: Slightly retroflexed uterus redemonstrated. No adnexal masses. Scattered tiny pelvic phleboliths redemonstrated. LYMPH NODES: No greater than 1cm abdominal or pelvic lymph nodes are appreciated. OSSEOUS STRUCTURES: Multilevel disc desiccation and mild to moderate disc space narrowing along with mild to moderate spurring in the thoracolumbar spine. OTHER: No significant additional abnormality is seen. IMPRESSION: Slightly more prominent mild biliary dilatation along with mildly dilated gallbladder. No obvious obstructing mass or calculus on CT. Correlate clinically to assess for possible CBD stone. P atient has known tiny gallstones on MRI. No obvious inflammatory change on CT to suggest acute cholec ystitis.
[2021-11-16] MEDS ORDERED: NALOXONE 0.4 MG/ML 1 ML VIAL IV PRN (05:34)
[2021-11-16] MEDS ORDERED: HYDROmorphone 1 MG/ML 1 ML SYRINGE IVP PRN (05:34)
[2021-11-16] MEDS ORDERED: LACTATED RINGERS 1,000 ML IV ONE (11:05)
[2021-11-16] MEDS ORDERED: HEPARIN SODIUM,PORCINE/PF 5,000 UNIT/0.5 ML SYRINGE SQ ONE (11:23)
[2021-11-16] MEDS ORDERED: DEXAMETHASONE SOD PHOSPHATE 4 MG/ML 1 ML VIAL IVP ONE (11:25)
--- NOTE | 2021-11-16 11:27 | P.GSHP ---
History of Present Illness H&P Date: 11/16/21 CHIEF COMPLAINT: Abdominal pain HISTORY OF PRESENT ILLNESS: This is a 66-year-old female who presented to the hospital with complaints of epigastric and right upper quadrant pain that radiated to the back. Patient also describes it that it wraps around the upper abdomen to the back bilaterally. She's been having nausea. No vomiting. Her symptoms started around 7:00 last night. She reports poor oral poor oral intake. She had similar symptoms back in June. Apparently she had computed tomography scan and MRI done at that time the had revealed gallstones. Patient's past surgical history includes C-sections and incisional hernia repair. Her abdominal pain has improved since getting to the hospital. She did require IV Dilaudid this morning. She has mildly elevated LFTs. Computed to mography scan slightly more prominent mild biliary dilatation along with mildly dilated gallbladder. No obvious obstructing mass or calculus on CT. Correlate for possible CBD stone. Patient has known gallstones on MRI. No obvious inflammatory change on CT to suggest acute cholecystitis. Patient denies any fever chills or sweats. Patient seen and examined with Dr. ibanez PAST MEDICAL HISTORY: See list. PAST SURGICAL HISTORY: See list. MEDICATIONS: See list. ALLERGIES: See list. SOCIAL HISTORY: No illicit drug use. REVIEW OF SYSTEMS: CONSTITUTIONAL: Denies fever or chills. HEENT: Denies blurred vision, vision changes, or eye pain. Denies hemoptysis CARDIOVASCULAR: Denies chest pain or pressure. RESPIRATORY: No shortness of breath. GASTROINTESTINAL: See HPI for pertinent findings HEMATOLOGIC: Denies bleeding disorders. GENITOURINARY: Denies any blood in urine or increased urinary frequency. SKIN: Denies pruitis. Denies rash. PHYSICAL EXAM: VITAL SIGNS: Reviewed GENERAL: Well-developed in no acute distress. HEENT: No sclera icterus. Extraocular movements grossly intact. Moist buccal mucosa. Head is atraumatic, normocephalic. No nasal drainage. ABDOMEN: Soft. Nondistended. Nontender NEUROLOGIC: Alert and oriented. Cranial nerves II through XII grossly intact. LABORATORY DATA: WBC is 11.3 Hgb 13.8 platelets 240 Sodium 139 potassium 4.1 creatinine 0.84 Total bilirubin 1.5 AST 151 ALT 78 Lipase 242 Urinalysis negative IMAGING: Computed tomography scan as stated above ASSESSMENT: 1. Cholecystitis with dilated gallbladder and prominent biliary dilatation noted on CAT scan 2. Cholelithiasis PLAN: -Patient scheduled for laparoscopic cholecystectomy today with Dr. ibanez -Keep patient nothing by mouth -IV antibiotics started -Continue IV fluids -Continue pain medication as needed -Continue antiemetics -Medicine service consulted for medical management Physician Light Rail Operator note has been reviewed by physician. Signing provider agrees with the documented findings, assessment, and plan of care. Past Medical History Past Medical History: Asthma, Hyperlipidemia, Hypertension, Osteoarthritis (OA) Additional Past Medical History / Comment(s): ASTHMA RESOLVED. BLOOD PRESSURE RX (AMLODIPINE, BENAZEPRIL, CHLORTHALIDONE) ON HOLD FOR PAST WEEK D/T FEELING FAINT ON ARISING. BEGAN STEROID PACK 08/22/18, TOLD TO HOLD AFTER AM DOSE TODAY. SWELLING IN LT KNEE/LEG SINCE SURGERY 08/07/18; USING WHEELCHAIR NOW D/T NWB. History of Any Multi-Drug Resistant Organisms: None Reported Past Surgical History: Section, Hernia Repair, Joint Replacement Additional Past Surgical History / Comment(s): Umbilical, Hemorrhoidectomy, D&C, Colonoscopy. TOTAL LT KNEE 08/07/18 Past Anesthesia/Blood Transfusion Reactions: Postoperative Nausea & Vomiting (PONV) Past Psychological History: No Psychological Hx Reported Smoking Status: Never smoker Past Alcohol Use History: Occasional Past Drug Use History: None Reported - Past Family History Mother Family Medical History: Hypertension Additional Family Medical History / Comment(s): Subdural Hematoma Medications and Allergies Home Medications Medication Instructions Recorded Confirmed Type Atenolol/Chlorthalidone 1 tab PO DAILY 11/16/21 11/16/21 History [Atenolol/Chlorthalidone 50-25] Budesonide/Formoterol Fumarate 2 puff INHALATION RT-DAILY 11/16/21 11/16/21 History [Symbicort 80-4.5 Mcg Inhaler] Ergocalciferol [Vitamin D2 (1250 1,250 mcg PO QMONTHLY 11/16/21 11/16/21 History Mcg = [id number] Iu)] Losartan Potassium [Cozaar] 100 mg PO DAILY 11/16/21 11/16/21 History Ondansetron [Zofran] 4 mg PO Q8HR PRN 11/16/21 11/16/21 History Simvastatin [Zocor] 20 mg PO HS 11/16/21 11/16/21 History amLODIPine [Norvasc] 10 mg PO HS 11/16/21 11/16/21 History Allergies Allergy/AdvReac Type Severity Reaction Status Date / Time morphine Allergy Rash/Hives Verified 11/16/21 11:05 atorvastatin [From Lipitor] AdvReac Nausea & Verified 11/16/21 11:05 Vomiting Surgical - Exam Vital Signs Temp Pulse Resp BP Pulse Ox 97.7 F 66 16 144/68 99 11/16/21 03:02 11/16/21 03:02 11/16/21 03:02 11/16/21 03:02 11/16/21 03:02 Results - Labs 11/16/21 04:49 11/16/21 04:49 Abnormal Lab Results - Last 24 Hours (Table) 11/16/21 11/16/21 Range/Units 04:49 04:49 WBC 11.3 H (3.8-10.6) k/uL Neutrophils # 9.6 H (1.3-7.7) k/uL Lymphocytes # 0.9 L (1.0-4.8) k/uL BUN 27 H (7-17) mg/dL Glucose 136 H (74-99) mg/dL Total Bilirubin 1.5 H (0.2-1.3) mg/dL AST 151 H (14-36) U/L ALT 78 H (4-34) U/L Diabetes panel 11/16/21 Range/Units 04:49 Sodium 139 (137-145) mmol/L Potassium 4.1 (3.5-5.1) mmol/L Chloride 101 (98-107) mmol/L Carbon Dioxide 26 (22-30) mmol/L BUN 27 H (7-17) mg/dL Creatinine 0.84 (0.52-1.04) mg/dL Glucose 136 H (74-99) mg/dL Calcium 9.8 (8.4-10.2) mg/dL AST 151 H (14-36) U/L ALT 78 H (4-34) U/L Alkaline Phosphatase 108 (38-126) U/L Total Protein 7.6 (6.3-8.2) g/dL Albumin 4.6 (3.5-5.0) g/dL Calcium panel 11/16/21 Range/Units 04:49 Calcium 9.8 (8.4-10.2) mg/dL Albumin 4.6 (3.5-5.0) g/dL Pituitary panel 11/16/21 Range/Units 04:49 Sodium 139 (137-145) mmol/L Potassium 4.1 (3.5-5.1) mmol/L Chloride 101 (98-107) mmol/L Carbon Dioxide 26 (22-30) mmol/L BUN 27 H (7-17) mg/dL Creatinine 0.84 (0.52-1.04) mg/dL Glucose 136 H (74-99) mg/dL Calcium 9.8 (8.4-10.2) mg/dL Adrenal panel 11/16/21 Range/Units 04:49 Sodium 139 (137-145) mmol/L Potassium 4.1 (3.5-5.1) mmol/L Chloride 101 (98-107) mmol/L Carbon Dioxide 26 (22-30) mmol/L BUN 27 H (7-17) mg/dL Creatinine 0.84 (0.52-1.04) mg/dL Glucose 136 H (74-99) mg/dL Calcium 9.8 (8.4-10.2) mg/dL Total Bilirubin 1.5 H (0.2-1.3) mg/dL AST 151 H (14-36) U/L ALT 78 H (4-34) U/L Alkaline Phosphatase 108 (38-126) U/L Total Protein 7.6 (6.3-8.2) g/dL Albumin 4.6 (3.5-5.0) g/dL
[2021-11-16] MEDS ORDERED: HEPARIN SODIUM,PORCINE 5,000 UNIT/ML 1 ML VIAL SQ ONE (12:17)
[2021-11-16] MEDS ORDERED: NEOSTIGMINE 1 MG/ML 10 ML VIAL ONE (12:48)
[2021-11-16] MEDS ORDERED: LIDOCAINE 2% INJ 20 MG/ML (2 ML VIAL) ONE (12:48)
[2021-11-16] MEDS ORDERED: fentaNYL (PF) 50 MCG/ML 2 ML AMP ONE (12:48)
[2021-11-16] MEDS ORDERED: GLYCOPYRROLATE 0.2 MG/ML 2 ML VIAL ONE (12:48)
[2021-11-16] MEDS ORDERED: ROCURONIUM 10 MG/ML (5 ML VIAL) IV ONE (12:48)
[2021-11-16] MEDS ORDERED: PROPOFOL 10 MG/ML 20 ML VIAL IV ONE (12:48)
[2021-11-16] MEDS ORDERED: SUCCINYLCHOLINE CHLORIDE 200 MG/10 ML VIAL IV ONE (12:48)
[2021-11-16] MEDS ORDERED: MIDAZOLAM 2 MG/2 ML VIAL ONE (12:48)
[2021-11-16] MEDS: PIPERACILLIN-TAZOBACTAM 3.375 GM in SODIUM CHLORIDE 0.9% 100 ML IVPB SCH ×3 (12:52→23:38)
[2021-11-16] MEDS ORDERED: BUPIVACAIN-EPI 0.25%-1:200,000 30 ML VIAL SQ ONE ×2 (12:56→13:07)
--- NOTE | 2021-11-16 13:33 | P.OP ---
Date of Procedure: 11/16/21 Preoperative Diagnosis: Cholecystitis Postoperative Diagnosis: Cholecystitis was significant inflammation Procedure(s) Performed: Laparoscopic cholecystectomy Anesthesia: JAQUELIN Surgeon: Tyler Elliott Estimated Blood Loss (ml): 25 Pathology: other (Gallbladder) Condition: stable Disposition: PACU Description of Procedure: The patient was placed on the operating table. The patient received a general endotracheal tube anesthesia. The patients abdomen was prepped and draped in the usual sterile fashion. Through an infraumbilical stab incision, the fascia of the anterior abdominal wall was grasped with a pair of Kochers and then the Veress needle was placed in the peritoneal cavity. Position of the Veress needle was confirmed with positive drop test. The abdomen was then insufflated. After adequate insufflation, the 10 mm trocar was placed in the peritoneal cavity. Following this the laparoscope was placed in the peritoneal cavity. The patient was placed in the head-up, right side up position and then a 5 mm trocar was placed in the right lateral and right subcostal position under direct visualization. A 8 mm trocar was placed in the epigastric position. The gallbladder is visualized. There appeared to be patchy necrosis of the dome of the gallbladder. Was quite inflamed. The gallbladder was enlarged. The gallbladder was grasped in the fundus and infundibulum. Traction on the gallbladder was placed in the lateral and the cephalad positions. The triangle of Calot was visualized.. The cystic duct was bluntly dissected until the union of the cystic duct and common bile duct was seen. A critical view of safety was achieved. The cystic duct was then divided and sealed with the Harmonic scissors. A PDS Endoloop was then placed throughout the cystic duct stump. The cystic artery divided and sealed with the Harmonic scissors. The gallbladder was then removed from the liver bed using Harmonic scissors. The gallbladder was then extracted through the epigastric port site. Operative field was checked for any bleeding spots and Harmonic scissors was used to coagulate the liver bed. Due to the significant inflammation a CALI drains placed the gallbladder fossa. This was brought out through the lateral 5 mm trocar site. The abdomen was irrigated. The trocars were removed. The skin was closed using interrupted 3-0 Vicryl suture. Dermabond dressing were applied. The patient tolerated the procedure well.
[2021-11-16] MEDS ORDERED: ALBUTEROL NEBULIZED 2.5 MG/3 ML INHALATION ONE (13:53)
[2021-11-16] MEDS ORDERED: HYDROmorphone 0.5 MG/0.5 ML SYRINGE IVP ONE ×3 (13:55→16:22)
[2021-11-16] MEDS ORDERED: KETOROLAC 15 MG/ML 1 ML VIAL IVP ONE (13:57)
[2021-11-16] MEDS ORDERED: SODIUM CHLORIDE 0.9% 1,000 ML IV ONE (14:25)
[2021-11-16] MEDS ORDERED: SIMETHICONE 80 MG CHEWABLE PO ONE (15:15)
[2021-11-16 17:10] LABS: Glucose,Whole Blood 141 mg/dL (70-110)
[2021-11-16] MEDS: SODIUM CHLORIDE 0.9% 1,000 ML IV SCH ×2 (17:13→17:18)
[2021-11-16] MEDS: HYDROmorphone 1 MG/ML 1 ML SYRINGE IVP PRN (20:10)
--- NOTE | 2021-11-17 04:31 | CONS ---
CONSULTATION CHIEF COMPLAINT: Epigastric pain. HISTORY OF PRESENT ILLNESS: This is another admission for this 66-year-old white female who has a history of asthma and hypertension and is otherwise fairly healthy. She has been found to have cholelithiasis, but has been fairly asymptomatic. However, the night of her admission she developed fairly acute epigastric pain with nausea and vomiting, came to the emergency room so it was determined that she had an acute cholecystitis. REVIEW OF SYSTEMS: She has had no headaches, chest pain, shortness of breath, hematemesis, melena, hematochezia, jaundice, acholic stools, dark urine, dysuria, frequency, urgency, incontinence, etc. Past medical history, family history, personal and social histories reveal that she is on amlodipine 10 mg once a day, Symbicort 80/4.5 two puffs twice a day, Tenoretic 50/25 once a day, simvastatin 20 once a day, losartan 100 mg once a day, ibuprofen 600 mg twice a day p.r.n., vitamin D. ALLERGIC: To tramadol, morphine, and Lipitor. She does not smoke or drink and she has otherwise been healthy. PHYSICAL EXAMINATION: VITAL SIGNS: Blood pressure is 132/86 with a pulse of 84, respirations of 19, she is afebrile. GENERAL: She appeared to be slightly overweight, in no acute distress. SKIN: Color is normal. Skin is warm and dry. LYMPH NODES: Enlarged. HEAD, EARS, EYES, NOSE, MOUTH AND THROAT: Normal. NECK: Veins are not distended. Thyroid is enlarged. CHEST: Clear. CARDIAC: Exam is normal. ABDOMEN: Slightly tender over the epigastrium and right upper quadrant. There are no masses. Bowel sounds are present. EXTREMITIES: Normal. NEUROLOGICAL: She is intact. DIAGNOSES: She is admitted to the hospital with: 1. Acute cholecystitis and cholelithiasis. 2. Hypertension. 3. Asthmatic bronchitis. 4. Hyperlipidemia. RECOMMENDATIONS: None at this time. She is cleared to go to the operating room, but another option would be to wait a day or 2 to see if the liver enzymes come down. All of this would be dependent upon how much difficult she gets into with gallbladder. MMODL / IJN: [id number] /
[2021-11-17] MEDS: SODIUM CHLORIDE 0.9% 1,000 ML IV SCH ×3 (05:58→13:17)
[2021-11-17] MEDS: PIPERACILLIN-TAZOBACTAM 3.375 GM in SODIUM CHLORIDE 0.9% 100 ML IVPB SCH ×2 (07:07→16:37)
[2021-11-17] MEDS ORDERED: HYDROcodone/APAP 5-325MG 1 EACH TAB PO PRN (07:51)
[2021-11-17 08:50] LABS: Basophils # (A) 0.1 k/uL (0-0.2); Basophils % (A) 0 %; Eosinophils % (A) 0 %; HCT 35.7 % (34.0-46.0); HGB 11.7 gm/dL (11.4-16.0); Lymphocytes # (A) 0.7 k/uL (1.0-4.8); Lymphocytes % (A) 6 %; MCH 30.6 pg (25.0-35.0); MCHC 32.9 g/dL (31.0-37.0); MCV 93.1 fL (80.0-100.0); Mean Platelet Volume 8.5; Monocytes # (A) 0.5 k/uL (0-1.0); Monocytes % (A) 4 %; Neutrophils # (A) 10.7 k/uL (1.3-7.7); Neutrophils % (A) 89 %; Platelet Count 207 k/uL (150-450); RBC 3.84 m/uL (3.80-5.40); RDW 12.8 % (11.5-15.5)
[2021-11-17 09:32] LABS: ALT 163 U/L (4-34); AST 179 U/L (14-36); African American GFR (CKD) 78 (>60 ml/min/1.73 sqM); Albumin 3.5 g/dL (3.5-5.0); Albumin/Globulin Ratio 1.3; Alkaline Phosphatase 118 U/L (38-126); Anion Gap 8 mmol/L; Blood Urea Nitrogen 14 mg/dL (7-17); Calcium 8.3 mg/dL (8.4-10.2); Carbon Dioxide 27 mmol/L (22-30); Chloride 104 mmol/L (98-107); Globulin 2.6 g/dL; Glucose 150 mg/dL (74-99); Non-African American GFR(CKD) 68 (>60 ml/min/1.73 sqM); Potassium 3.5 mmol/L (3.5-5.1); Sodium 139 mmol/L (137-145); Total Bilirubin 0.8 mg/dL (0.2-1.3); Total Protein 6.1 g/dL (6.3-8.2)
[2021-11-17] MEDS ORDERED: POTASSIUM CHLORIDE ER 20 MEQ TAB.ER PO STA (12:40)
--- NOTE | 2021-11-17 12:46 | P.PN ---
Subjective Progress Note Date: 11/17/21 CHIEF COMPLAINT: Cholecystitis HISTORY OF PRESENT ILLNESS: Patient is status post laparoscopic cholecystectomy. Postop day #1. Initially this morning patient was feeling very well. She started to have more abdominal pain. She reports she feels a lot of gas pressure. Denies any nausea or vomiting. Afebrile. WBC 11.3 up to 12 Hgb 11.7 NA 139 potassium is 3.5 total bilirubin 1.5 down to 0.8 AST 151 up to 179 ALT 78-163 CALI drain with serosanguineous output 30 mL. Patient seen and examined with Dr. ibanez PHYSICAL EXAM: VITAL SIGNS: Reviewed. GENERAL: Well-developed in no acute distress. HEENT: No sclera icterus. Extraocular movements grossly intact. Moist buccal mucosa. Head is atraumatic, normocephalic. ABDOMEN: Soft. Nondistended. Nontender. Incision sites clean dry and intact NEUROLOGIC: Alert and oriented. Cranial nerves II through XII grossly intact. ASSESSMENT: 1. Cholecystitis with significant inflammation status post laparoscopic cholecystectomy 2. Cholelithiasis 3. Hypokalemia PLAN: -Continue to monitor patient for another 24 hours. Anticipate discharge p ossibly tomorrow. -Continue pain medication as needed -Add Mylicon gas drops -Encourage patient to ambulate -Repeat LFTs in a.m. -Continue antibiotics -Continue IV fluids at decreased rate 75ml/hr -Replace potassium -GI prophylaxis Pepcid and DVT prophylaxis subcu heparin Physician Milking Worker note has been reviewed by physician. Signing provider agrees with the documented findings, assessment, and plan of care. Objective - Vital Signs Vital signs: Vital Signs Temp 98.5 F 11/17/21 08:23 Pulse 68 11/17/21 08:23 Resp 17 11/17/21 08:23 BP 152/80 11/17/21 08:23 Pulse Ox 98 11/17/21 08:23 FiO2 Intake & Output 11/16/21 11/17/21 11/17/21 18:59 06:59 18:59 Intake Total 700 130 Output Total 20 30 Balance 680 100 Weight 98.5 kg Intake: IV 700 130 Sodium Chloride 0.9% 1, 130 000 ml @ 130 mls/hr IV . [id number] [facility] Rx#:[id number] Output: Drainage 30 Lower Abdomen 30 Estimated Blood Loss 20 Other: Voiding Method Toilet # Voids 1 - Labs CBC & Chem 7: 11/17/21 08:16 11/17/21 08:16 Labs: Abnormal Lab Results - Last 24 Hours (Table) 11/16/21 11/17/21 11/17/21 Range/Units 17:08 08:16 08:16 WBC 12.0 H (3.8-10.6) k/uL Neutrophils # 10.7 H (1.3-7.7) k/uL Lymphocytes # 0.7 L (1.0-4.8) k/uL Glucose 150 H (74-99) mg/dL POC Glucose (mg/dL) 141 H (70-110) mg/dL Calcium 8.3 L (8.4-10.2) mg/dL AST 179 H (14-36) U/L ALT 163 H (4-34) U/L Total Protein 6.1 L (6.3-8.2) g/dL
[2021-11-17] MEDS: SIMETHICONE 40 MG/0.6 ML DROPS 2,000 MG/30 ML BOTTLE PO SCH ×3 (13:17→22:41)
[2021-11-17] MEDS: HEPARIN SODIUM,PORCINE/PF 5,000 UNIT/0.5 ML SYRINGE SQ SCH ×2 (13:19→21:07)
[2021-11-17] MEDS: HYDROmorphone 1 MG/ML 1 ML SYRINGE IVP PRN ×2 (16:44→23:56)
[2021-11-17] MEDS: FAMOTIDINE 20 MG TAB PO SCH (21:09)
[2021-11-17] MEDS: ONDANSETRON 4 MG/2 ML VIAL IVP PRN (23:55)
[2021-11-18] MEDS: PIPERACILLIN-TAZOBACTAM 3.375 GM in SODIUM CHLORIDE 0.9% 100 ML IVPB SCH ×4 (00:01→23:48)
[2021-11-18] MEDS: SODIUM CHLORIDE 0.9% 1,000 ML IV SCH ×2 (03:10→23:52)
[2021-11-18] MEDS: FAMOTIDINE 20 MG TAB PO SCH ×2 (07:59→21:10)
[2021-11-18] MEDS: HEPARIN SODIUM,PORCINE/PF 5,000 UNIT/0.5 ML SYRINGE SQ SCH ×2 (07:59→21:09)
[2021-11-18] MEDS: SIMETHICONE 40 MG/0.6 ML DROPS 2,000 MG/30 ML BOTTLE PO SCH ×4 (08:03→23:53)
[2021-11-18] MEDS: ONDANSETRON 4 MG/2 ML VIAL IVP PRN (09:57)
[2021-11-18] MEDS: HYDROmorphone 1 MG/ML 1 ML SYRINGE IVP PRN ×2 (09:58→20:33)
[2021-11-18] MEDS ORDERED: ONDANSETRON 4 MG/2 ML VIAL IVP PRN (10:25)
[2021-11-18 10:50] LABS: Basophils # (A) 0.04 X 10*3/uL (0.00-0.10); Basophils % (A) 0.5 %; Eosinophils # (A) 0.45 X 10*3/uL (0.04-0.35); HCT 32.6 % (37.2-46.3); HGB 10.6 g/dL (12.0-15.0); Immature Grans, Automated 1.1 %; Lymphocytes # (A) 0.99 X 10*3/uL (0.90-5.00); Lymphocytes % (A) 13.2 %; MCH 30.1 pg (27.0-32.0); MCHC 32.5 g/dL (32.0-37.0); MCV 92.6 fL (80.0-97.0); Mean Platelet Volume 11.7 fL (9.5-12.2); Monocytes # (A) 0.66 X 10*3/uL (0.20-1.00); Monocytes % (A) 8.8 %; NRBC Per 100 WBC 0 /100 WBCS (0.0-0.0); Neutrophils # (A) 5.26 X 10*3/uL (1.80-7.70); Neutrophils % (A) 70.4 %; Platelet Count 185 X 10*3/uL (140-440); RBC 3.52 X 10*6/uL (4.10-5.20); RDW 13.4 % (11.5-14.5); WBC 7.48 X 10*3/uL (4.50-10.00)
[2021-11-18 11:16] LABS: African American GFR (CKD) 77.8 (60.0-200.0); Albumin 3.6 g/dL (3.8-4.9); Albumin/Globulin Ratio 1.71 (1.60-3.17); Anion Gap 7.7 mmol/L (10.00-18.00); BUN/Creat Ratio 10.33 Ratio (12.00-20.00); Blood Urea Nitrogen 9.3 mg/dL (9.0-27.0); Calcium 8.6 mg/dL (8.7-10.3); Carbon Dioxide 26.3 mmol/L (20.0-27.5); Globulin 2.1 g/dL (1.6-3.3); Non-African American GFR(CKD) 67.1 (60.0-200.0); Potassium 3.9 mmol/L (3.5-5.5); Total Bilirubin 1.2 mg/dL (0.30-1.20); Total Protein 5.7 g/dL (6.2-8.2)
--- NOTE | 2021-11-18 11:42 | P.PN ---
Subjective Progress Note Date: 11/18/21 CHIEF COMPLAINT: Cholecystitis HISTORY OF PRESENT ILLNESS: Patient is status post laparoscopic cholecystectomy. Postop day #2. Patient reporting increase in abdominal pain this morning. She rates her pain 10 out of 10. Patient has received pain medication at midnight and then again later this morning. She she may have spread her pain medications out for too long. She was reporting nausea. She's had some flatus. No bowel movement. She has been up and ambulating. Overall she reports she is just not feeling very well. CALI drain with serosanguineous output 30ml. Afebrile. WBC is down from 12-7.48. LFTs are worsening total bilirubin 1.2 AST 179 up to 199 ALT 163 up to 280 alk phos 246 potassium is 3.9 creatinine 0.9 Patient seen and examined with Dr. ibanez PHYSICAL EXAM: VITAL SIGNS: Reviewed. GENERAL: Well-developed in no acute distress. HEENT: No sclera icterus. Extraocular movements grossly intact. Moist buccal mucosa. Head is atraumatic, normocephalic. ABDOMEN: Soft. Nondistended. tender across upper abdomen. Incision sites clean dry and intact NEUROLOGIC: Alert and oriented. Cranial nerves II through XII grossly intact. ASSESSMENT: 1. Cholecystitis with significant inflammation status post laparoscopic cholecystectomy 2. Cholelithiasis 3. Worsening Elevated LFTs with known gallstones. Concerns for possible choledocholithiasis 4. Hypokalemia Resolved PLAN: -Consult GI service for possible choledocholithiasis -Downgrade diet to full liquids -Toradol added for pain control -Continue IV fluids -Continue antibiotics -Encourage patient to ambulate -Encourage patient to use incentive spirometer -GI prophylaxis Pepcid and DVT prophylaxis subcu heparin Physician Plate Roller note has been reviewed by physician. Signing provider agrees with the documented findings, assessment, and plan of care. Objective - Vital Signs Vital signs: Vital Signs Temp 98.5 F 11/18/21 07:00 Pulse 82 11/18/21 08:29 Resp 18 11/18/21 08:29 BP 136/74 11/18/21 07:00 Pulse Ox 95 11/18/21 07:00 FiO2 Intake & Output 11/17/21 11/18/21 11/18/21 18:59 06:59 18:59 Output Total 730 Balance -730 Output: Drainage 30 Lower Abdomen 30 Urine 700 Other: Voiding Method Toilet Toilet # Voids 2 # Bowel Movements 1 - Labs CBC & Chem 7: 11/18/21 06:48 11/18/21 06:48 Labs: Abnormal Lab Results - Last 24 Hours (Table) 11/18/21 11/18/21 Range/Units 06:48 06:48 RBC 3.52 L (4.10-5.20) X 10*6/uL Hgb 10.6 L (12.0-15.0) g/dL Hct 32.6 L (37.2-46.3) % Immature Gran # 0.08 H (0.00-0.04) X 10*3/uL Eosinophils # 0.45 H (0.04-0.35) X 10*3/uL Anion Gap 7.70 L (10.00-18.00) mmol/L BUN/Creatinine Ratio 10.33 L (12.00-20.00) Ratio Calcium 8.6 L (8.7-10.3) mg/dL AST 199 H (13-35) U/L ALT 280 H (8-44) U/L Alkaline Phosphatase 246 H (41-126) U/L Total Protein 5.7 L (6.2-8.2) g/dL Albumin 3.6 L (3.8-4.9) g/dL
[2021-11-18] MEDS ORDERED: KETOROLAC 15 MG/ML 1 ML VIAL IM SCH (12:00)
[2021-11-18] MEDS: KETOROLAC 15 MG/ML 1 ML VIAL IVP SCH ×3 (12:09→23:47)
--- NOTE | 2021-11-18 12:23 | XR ---
EXAMINATION TYPE: XR chest 2V DATE OF EXAM: 11/18/2021 12:00 PM COMPARISON: CT abdomen pelvis 11/16/2021 TECHNIQUE: XR chest 2V Frontal and lateral views of the chest. CLINICAL INDICATION:Female, 66 years old with history of abd pain; FINDINGS: Lungs/Pleura: There is no evidence of pleural effusion, focal consolidation, or pneumothorax. Bibasi lar atelectasis. Pulmonary vascularity: Unremarkable. Heart/mediastinum: Cardiomediastinal silhouette is unremarkable. Musculoskeletal: No acute osseous pathology. Lines/Tubes: Partial visualization of drainage catheter terminating near the gastric esophageal junction. Please for to dedicated radiographs for findings. IMPRESSION: Bibasilar atelectasis. No focal consolidation or pleural effusions.
--- NOTE | 2021-11-18 12:35 | XR ---
EXAMINATION TYPE: XR abdomen complete w decub DATE OF EXAM: 11/18/2021 12:00 PM INDICATION: Patient age:Female; 66 years old; Reason for study: P/O pain; PHH. COMPARISON: None. TECHNIQUE: Upright, supine, and lateral decubitus views of the abdomen are obtained with 4 radiograph s. FINDINGS: Mild gaseous distention of the colon with stool present within the rectum and ascending col on. No dilated small bowel loops identified. Drainage catheter terminates in the region of the GE jeanne ction. There is no evidence for organomegaly or pneumoperitoneum. Degenerative changes of the lumbar spine. No abnormal calcifications are present. Fecal material and gas are demonstrated throughout t he colon and rectum. IMPRESSION: 1. Mild gaseous distention of the colon suggests colonic ileus. 2. Drainage catheter within the upper abdomen.
--- NOTE | 2021-11-18 14:41 | P.CONS ---
History of Present Illness - Reason for Consult Consult date: 11/18/21 Possible choledocholithiasis Requesting physician: Kiersten Rodriguez - Chief Complaint Abdominal pain - History of Present Illness Pleasant 66-year-old white female who presented to the hospital on 11/16/21 with complaints of epigastric and right upper quadrant pain radiating to her back. Pain was associated with nausea but no vomiting. The past medical history including asthma, hyperlipidemia, hypertension, and osteoarthritis. She was admitted to general surgery Dr. Elliott underwent laparoscopic cholecystectomy on 11/16/2021 for cholecystitis. Apparently today the patient was having increased pain along with nausea and some vomiting. She states that when she wa s given some IV Dilaudid pain improved as well as Zofran nausea and vomiting improved this morning. She states up and ambulating in her room. She has a CALI drain in place with serosanguineous drainage. She states she is passing flatus. No bowel movement yet. She is having some increase in her AST and ALT from admitting baseline, gastroenterology was consulted for possible choledocholithiasis. On admission patient had a CT of the abdomen and pelvis without contrast that reported slightly more prominent mild biliary dilation along with mildly dilated gallbladder. No obvious obstructing mass or calculus on CT. Correlate clinically to assess for possible CBD stone. Patient has known tiny gallstones on MRI no obvious inflammatory change on CT to suggest acute cholecystitis. Patient has had a prior MRCP done on 07/10/2021 findings included multiple small gallstones. Stable evaluation of the biliary tree. No evidence of gallbladder hydrops wall thickening or. Cholecystic fluid. Common bile duct again measures 7 mm which is the upper limits of normal for patient's age group. Mild left- sided intrahepatic biliary ductal prominence redemonstrated possibly related to stricture. The liver is homogeneous with no mass lesion. Review of Systems REVIEW OF SYSTEMS: CARDIOPULMONARY: No chest pain or shortness of breath. Gastrointestinal: Patient denies any abdominal pain currently. She has some surgical tenderness. Was having some nausea and dry heaving this morning, resolved after Zofran given. Pain resolved after Dilaudid given. No hematemesi s, coffee-ground emesis. No rectal bleeding, or melena. GENITOURINARY: No dysuria or hematuria. MUSCULOSKELETAL: Reports normal range of motion., Joint pain. SKIN: No rashes. No jaundice. ENDOCRINE: No chills, fevers. No excessive weight gain or loss. No polydipsia or polyuria. PSYCHIATRIC: Unremarkable. NEUROLOGY: No change in mental status. Denies dizziness, headache. ENT: Vision unremarkable. CONSTITUTIONAL: No recent weight loss. No fever, chills, night sweats. Past Medical History Past Medical History: Asthma, Hyperlipidemia, Hypertension, Osteoarthritis (OA) Additional Past Medical History / Comment(s): ASTHMA RESOLVED. BLOOD PRESSURE RX (AMLODIPINE, BENAZEPRIL, CHLORTHALIDONE) ON HOLD FOR PAST WEEK D/T FEELING FAINT ON ARISING. BEGAN STEROID PACK 08/22/18, TOLD TO HOLD AFTER AM DOSE TODAY. SWELLING IN LT KNEE/LEG SINCE SURGERY 08/07/18; USING WHEELCHAIR NOW D/T NWB. History of Any Multi-Drug Resistant Organisms: None Reported Past Surgical History: Section, Hernia Repair, Joint Replacement Additional Past Surgical History / Comment(s): Umbilical, Hemorrhoidectomy, D&C, Colonoscopy. TOTAL LT KNEE 08/07/18 Past Anesthesia/Blood Transfusion Reactions: Postoperative Nausea & Vomiting (PONV) Past Psychological History: No Psychological Hx Reported Smoking Status: Never smoker Past Alcohol Use History: Occasional Past Drug Use History: None Reported - Past Family History Mother Family Medical History: Hypertension Additional Family Medical History / Comment(s): Subdural Hematoma Medications and Allergies Home Medications Medication Instructions Recorded Confirmed Type Atenolol/Chlorthalidone 1 tab PO DAILY 11/16/21 11/16/21 History [Atenolol/Chlorthalidone 50-25] Budesonide/Formoterol Fumarate 2 puff INHALATION RT-DAILY 11/16/21 11/16/21 History [Symbicort 80-4.5 Mcg Inhaler] Ergocalciferol [Vitamin D2 (1250 1,250 mcg PO QMONTHLY 11/16/21 11/16/21 History Mcg = 10503 Iu)] Losartan Potassium [Cozaar] 100 mg PO DAILY 11/16/21 11/16/21 History Ondansetron [Zofran] 4 mg PO Q8HR PRN 11/16/21 11/16/21 History Simvastatin [Zocor] 20 mg PO HS 11/16/21 11/16/21 History amLODIPine [Norvasc] 10 mg PO HS 11/16/21 11/16/21 History Allergies Allergy/AdvReac Type Severity Reaction Status Date / Time morphine Allergy Rash/Hives Verified 11/16/21 11:05 atorvastatin [From Lipitor] AdvReac Nausea & Verified 11/16/21 11:05 Vomiting Physical Exam Vitals: Vital Signs Temp Pulse Pulse Resp BP Pulse Ox 11/18/21 08:29 82 18 11/18/21 07:00 98.5 F 82 18 136/74 95 11/18/21 02:15 99.0 F 70 17 107/68 91 L 11/17/21 19:32 98.8 F 76 17 122/68 94 L 11/17/21 19:21 16 11/17/21 15:00 98.5 F 70 16 115/70 95 Intake and Output 11/17/21 11/18/21 11/18/21 22:59 06:59 14:59 Output Total 30 Balance -30 Output: Drainage 30 Lower Abdomen 30 Other: Voiding Method Toilet Toilet # Voids 2 2 General appearance: The patient is alert, oriented, appears in no acute distress. HET: Head is normocephalic and atraumatic. Conjunctiva pink. Sclera anicteric. Neck: Supple without lymphadenopathy. Trachea midline. Heart: S1 S2. Regular rate and rhythm. Lungs: Clear to auscultation. Abdomen: Soft, mild tendern around surgical incisions, CALI drain intact with serosanguineous drainage,e nondistended. No guarding or rigidity. Skin: No rashes. No jaundice. Extremities: Normal skin color and turgor. No pedal edema. Neurological: No focal deficits. Alert and oriented x3. Results CBC & Chem 7: 11/18/21 06:48 11/18/21 06:48 Labs: Abnormal Lab Results - Last 24 Hours (Table) 11/18/21 11/18/21 Range/Units 06:48 06:48 RBC 3.52 L (4.10-5.20) X 10*6/uL Hgb 10.6 L (12.0-15.0) g/dL Hct 32.6 L (37.2-46.3) % Immature Gran # 0.08 H (0.00-0.04) X 10*3/uL Eosinophils # 0.45 H (0.04-0.35) X 10*3/uL Anion Gap 7.70 L (10.00-18.00) mmol/L BUN/Creatinine Ratio 10.33 L (12.00-20.00) Ratio Calcium 8.6 L (8.7-10.3) mg/dL AST 199 H (13-35) U/L ALT 280 H (8-44) U/L Alkaline Phosphatase 246 H (41-126) U/L Total Protein 5.7 L (6.2-8.2) g/dL Albumin 3.6 L (3.8-4.9) g/dL Comments: CT of the abdomen and pelvis without contrast that reported slightly more prominent mild biliary dilation along with mildly dilated gallbladder. No obvious obstructing mass or calculus on CT. Correlate clinically to assess for possible CBD stone. Patient has known tiny gallstones on MRI no obvious inflammatory change on CT to suggest acute cholecystitis. CT scan - abdomen: report reviewed Assessment and Plan (1) Elevated LFTs Narrative/Plan: 66-year-old female who presented to the emergency department 2 days ago with complaints of abdominal pain radiating to her back. She had a CT of the abdomen and pelvis showing some mild biliary dilation along with mildly distended gallbladder. she was admitted to general surgery and underwent a laparoscopic cholecystectomy for cholecystitis 2 days ago. She apparently was having some complaints of increased abdominal pain this morning with some nausea and dry heaves. LFTs have been increasing over last 2 days duration. Bilirubin stable at 1.2. Gen. surgery was concern for possible choledocholithiasis and consulted gastroenterology. MRCP is ordered. Patient had prior MRCP in June of this year for prior intrahepatic biliary dilation follow-up. Patient currently evaluated without any abdominal pain nausea or vomiting. We will order that repeat MRCP await findings. Repeat CMP in the morning. Further recommendations forthcoming. Current Visit: Yes Status: Acute Code(s): R79.89 - OTHER SPECIFIED ABNORMAL FINDINGS OF BLOOD CHEMISTRY SNOMED Code(s): 374363203 (2) Cholecystitis Current Visit: Yes Status: Acute Code(s): K81.9 - CHOLECYSTITIS, UNSPECIFIED SNOMED Code(s): 27493755 Plan: 1. Continue symptomatic and supportive care 2. Diet per recommendations from general surgery 3. Await results from MRCP 4. Nothing by mouth after midnight 5. Pain medications and antiemetics as needed 6. Hold heparin dose in the morning 7. Further recommendations forthcoming following MRCP Thank you for this consultation, we will continue to follow Dr. Ginny Lancaster I agree with the dictator's note, documented as a scribe by Haylie Tamayo.
[2021-11-19] MEDS: HYDROmorphone 1 MG/ML 1 ML SYRINGE IVP PRN ×3 (04:16→17:42)
[2021-11-19] MEDS: SODIUM CHLORIDE 0.9% 1,000 ML IV SCH ×2 (05:57→17:19)
[2021-11-19] MEDS: KETOROLAC 15 MG/ML 1 ML VIAL IVP SCH ×2 (06:05→12:41)
[2021-11-19] MEDS: FAMOTIDINE 20 MG TAB PO SCH ×2 (07:48→21:07)
[2021-11-19] MEDS: HEPARIN SODIUM,PORCINE/PF 5,000 UNIT/0.5 ML SYRINGE SQ SCH ×2 (07:52→21:08)
[2021-11-19] MEDS: PIPERACILLIN-TAZOBACTAM 3.375 GM in SODIUM CHLORIDE 0.9% 100 ML IVPB SCH ×2 (07:53→15:32)
[2021-11-19] MEDS: SIMETHICONE 40 MG/0.6 ML DROPS 2,000 MG/30 ML BOTTLE PO SCH ×4 (08:07→21:10)
[2021-11-19 09:35] LABS: Basophils # (A) 0.04 X 10*3/uL (0.00-0.10); Basophils % (A) 0.5 %; Eosinophils % (A) 5.3 %; HCT 31.6 % (37.2-46.3); HGB 10.4 g/dL (12.0-15.0); Immature Grans, Automated 1.2 %; Lymphocytes # (A) 0.72 X 10*3/uL (0.90-5.00); Lymphocytes % (A) 9.5 %; MCH 30.1 pg (27.0-32.0); MCHC 32.9 g/dL (32.0-37.0); MCV 91.3 fL (80.0-97.0); Mean Platelet Volume 11.7 fL (9.5-12.2); Monocytes # (A) 0.66 X 10*3/uL (0.20-1.00); Monocytes % (A) 8.7 %; NRBC Per 100 WBC 0 /100 WBCS (0.0-0.0); Neutrophils # (A) 5.66 X 10*3/uL (1.80-7.70); Neutrophils % (A) 74.8 %; Platelet Count 189 X 10*3/uL (140-440); RBC 3.46 X 10*6/uL (4.10-5.20); RDW 13.2 % (11.5-14.5); WBC 7.57 X 10*3/uL (4.50-10.00)
--- NOTE | 2021-11-19 10:38 | P.PN ---
Subjective Progress Note Date: 11/19/21 CHIEF COMPLAINT: Cholecystitis HISTORY OF PRESENT ILLNESS: Patient is status post laparoscopic cholecystectomy. Postop day #3. Patient reports that she is feeling better today than yesterday. Her epigastric pain is better controlled. She states that the IV Dilaudid is helping. She is also receiving the Toradol. She has decrease in nausea. No vomiting. She is scheduled for MRCP today. She has been seen by GI service. CALI drain with 10 mL serosanguineous output. Abdominal x-ray showing mild gaseous distention of the colon that suggests colonic ileus. Afebrile. WBC is 7.57 Hgb 10.4 Plt 189. CMP is pending. Patient did have flatus. CXR bibasilar atelectasis. No focal consolidation or pleural effusions. PHYSICAL EXAM: VITAL SIGNS: Reviewed. GENERAL: Well-developed in no acute distress. HEENT: No sclera icterus. Extraocular movements grossly intact. Moist buccal mucosa. Head is atraumatic, normocephalic. ABDOMEN: Soft. Nondistended. nontender Incision sites clean dry and intact NEUROLOGIC: Alert and oriented. Cranial nerves II through XII grossly intact. ASSESSMENT: 1. Cholecystitis with significant inflammation status post laparoscopic cholecystectomy 2. Cholelithiasis 3. Worsening Elevated LFTs with known gallstones. Concerns for possible choledocholithiasis 4. Hypokalemia Resolved 5. Postoperative ileus PLAN: -Patient scheduled for MRCP today for evaluation of choledocholithiasis -She is currently nothing by mouth for MRCP -Add Reglan for ileus and nausea -Continue pain management -Continue IV fluids -Continue antiemetics as needed -Continue antibiotics -Encourage patient to ambulate -Encourage patient to use incentive spirometer -GI prophylaxis Pepcid and DVT prophylaxis subcu heparin Physician Biofu[employer] Production Manager note has been reviewed by physician. Signing provider agrees with the documented findings, assessment, and plan of care. I have personally seen and examined the patient, reviewed the PETROLEUM ENGINEER /PAs history, exam and MDM and agree with the assessment and plan as written. Based on total visit time, I have performed more than 50% of the visit. As above: Patient says her pain is improved this afternoon. MRCP does show choledocholithiasis. I did review the study with radiology and notified them of the recent cholecystectomy. They presumed there was a small seroma or hematoma at the operative site which is not unexpected. Await ERCP tomorrow. Objective - Vital Signs Vital signs: Vital Signs Temp 98.2 F 11/19/21 08:00 Pulse 71 11/19/21 08:00 Resp 16 11/19/21 08:00 BP 167/79 11/19/21 08:00 Pulse Ox 94 L 11/19/21 08:00 FiO2 Intake & Output 11/18/21 11/19/21 11/19/21 18:59 06:59 18:59 Intake Total 100 Balance 100 Intake: Intake, IV Titration 100 Amount Piperacillin-Tazobactam 3 100 .375 gm In Sodium Chloride 0.9% 100 ml @ 25 mls/hr IVPB Q8HR [facility] Rx# :[id number] Other: Voiding Method Toilet Toilet Toilet # Voids 2 - Labs CBC & Chem 7: 11/19/21 06:44 11/19/21 06:44 Labs: Abnormal Lab Results - Last 24 Hours (Table) 11/18/21 11/18/21 11/19/21 Range/Units 06:48 06:48 06:44 RBC 3.52 L 3.46 L (4.10-5.20) X 10*6/uL Hgb 10.6 L 10.4 L (12.0-15.0) g/dL Hct 32.6 L 31.6 L (37.2-46.3) % Immature Gran # 0.08 H 0.09 H (0.00-0.04) X 10*3/uL Lymphocytes # 0.72 L (0.90-5.00) X 10*3/uL Eosinophils # 0.45 H 0.40 H (0.04-0.35) X 10*3/uL Anion Gap 7.70 L (10.00-18.00) mmol/L BUN/Creatinine Ratio 10.33 L (12.00-20.00) Ratio Calcium 8.6 L (8.7-10.3) mg/dL AST 199 H (13-35) U/L ALT 280 H (8-44) U/L Alkaline Phosphatase 246 H (41-126) U/L Total Protein 5.7 L (6.2-8.2) g/dL Albumin 3.6 L (3.8-4.9) g/dL
[2021-11-19 11:38] LABS: African American GFR (CKD) 89.7 (60.0-200.0); Albumin 3.4 g/dL (3.8-4.9); Albumin/Globulin Ratio 1.7 (1.60-3.17); Anion Gap 10.4 mmol/L (10.00-18.00); BUN/Creat Ratio 7.88 Ratio (12.00-20.00); Blood Urea Nitrogen 6.3 mg/dL (9.0-27.0); Calcium 8.5 mg/dL (8.7-10.3); Carbon Dioxide 26.6 mmol/L (20.0-27.5); Non-African American GFR(CKD) 77.4 (60.0-200.0); Potassium 3.4 mmol/L (3.5-5.5); Total Bilirubin 3.6 mg/dL (0.30-1.20); Total Protein 5.4 g/dL (6.2-8.2)
[2021-11-19] MEDS: METOCLOPRAMIDE 5 MG/ML 2 ML VIAL IVP SCH ×2 (11:43→17:42)
--- NOTE | 2021-11-19 11:57 | MR ---
MRCP HISTORY: Abdominal pain Multiplanar multisequence imaging obtained through the biliary system with three-dimensional reconstr uctions performed on an alternate workstation and reviewed Correlation CT scan abdomen pelvis 11/16/2021, MRCP 07/10/2021 Exam is somewhat limited by patient body habitus. The liver is not enlarged. There has been interval development of dilation of the common bile duct, c entral hepatic biliary ducts, diameter of the common bile duct approximately 13 mm versus on previous exam it measured approximately 8 mm. Choledocholithiasis is noted on coronal image #17 of series #70 1, at least 2 stones are identified. Gallbladder appears somewhat irregular, there may be luminal regan efactive sludge. Pancreatic duct measures approximately 4 mm. On coronal image #12 series 701 there is a questionable filling defect present, finding could be artifactual, not seen on the reconstructed images. Lung bases show probable atelectatic change. There is no evident ascites. There is likely a hiatal he rnia present with partial intrathoracic stomach, some calcifications are present at this level. Degen erative disc changes are noted in the visualized spine. Cortical cyst noted incidentally within the l eft kidney. Abdominal aorta is not aneurysmal. No retroperitoneal adenopathy. IMPRESSION: Choledocholithiasis. Biliary ductal dilatation is described.
[2021-11-19 13:32] LABS: INR 0.9 (<1.2); Prothrombin Time 10.1 sec (9.0-12.0)
[2021-11-19] MEDS ORDERED: INDOMETHACIN 50MG SUPPOSITORY RECTAL ONE (14:00)
--- NOTE | 2021-11-19 14:18 | P.PN ---
Subjective Progress Note Date: 11/19/21 Principal diagnosis: Cholelithiasis, cholecystitis Pleasant 66-year-old white female who presented to the hospital on 11/16/21 with complaints of epigastric and right upper quadrant pain radiating to her back. Pain was associated with nausea but no vomiting. The past medical history including asthma, hyperlipidemia, hypertension, and osteoarthritis. She was admitted to general surgery Dr. Elliott underwent laparoscopic cholecystectomy on 11/16/2021 for cholecystitis. Apparently today the patient was having increased pain along with nausea and some vomiting. She states that when she was given some IV Dilaudid pain improved as well as Zofran nausea and vomiting improved this morning. She states up and ambulating in her room. She has a CALI drain in place with serosanguineous drainage. She states she is passing flatus. No bowel movement yet. She is having some increase in her AST and ALT from admitting baseline, gastroenterology was consulted for possible chol edocholithiasis. On admission patient had a CT of the abdomen and pelvis without contrast that reported slightly more prominent mild biliary dilation along with mildly dilated gallbladder. No obvious obstructing mass or calculus on CT. Correlate clinically to assess for possible CBD stone. Patient has known tiny gallstones on MRI no obvious inflammatory change on CT to suggest acute cholecystitis. 11/19/2021: Patient seen and examined sitting up in bed and appears in no acute distress. States abdominal pain is improved at this time however she states she had significant abdominal pain through the night. Denies any nausea or vomiting. She underwent MRCP with findings of choledocholithiasis and biliary ductal dilation with at least 2 stones identified. She remains afebrile. Patient continues to have increase in her LFTs. Today total bilirubin 3.6 AST 127 ALT 226 alkaline phosphatase 337 Objective - Vital Signs Vital signs: Vital Signs Temp 98.2 F 11/19/21 08:00 Pulse 71 11/19/21 08:00 Resp 16 11/19/21 08:00 BP 167/79 11/19/21 08:00 Pulse Ox 94 L 11/19/21 08:00 FiO2 Intake & Output 11/18/21 11/19/21 11/19/21 18:59 06:59 18:59 Intake Total 100 Balance 100 Intake: Intake, IV Titration 100 Amount Piperacillin-Tazobactam 3 100 .375 gm In Sodium Chloride 0.9% 100 ml @ 25 mls/hr IVPB Q8HR [facility] Rx# :[id number] Other: Voiding Method Toilet Toilet Toilet # Voids 2 - Exam General appearance: The patient is alert, oriented, appears in no acute distress. HET: Head is normocephalic and atraumatic. Conjunctiva pink. Sclera anicteric. Neck: Supple without lymphadenopathy. Abdomen: Soft, right upper quadrant/epigastric tenderness, surgical tenderness around the incisions, CALI drain intact, nondistended. No guarding or rigidity. Extremities: Normal skin color and turgor. No pedal edema Skin: No rashes, no jaundice Neurological: No focal deficits. Alert and oriented x 3. - Labs CBC & Chem 7: 11/19/21 06:44 11/19/21 06:44 Labs: Abnormal Lab Results - Last 24 Hours (Table) 11/19/21 11/19/21 Range/Units 06:44 06:44 RBC 3.46 L (4.10-5.20) X 10*6/uL Hgb 10.4 L (12.0-15.0) g/dL Hct 31.6 L (37.2-46.3) % Immature Gran # 0.09 H (0.00-0.04) X 10*3/uL Lymphocytes # 0.72 L (0.90-5.00) X 10*3/uL Eosinophils # 0.40 H (0.04-0.35) X 10*3/uL Potassium 3.4 L (3.5-5.5) mmol/L BUN 6.3 L (9.0-27.0) mg/dL BUN/Creatinine Ratio 7.88 L (12.00-20.00) Ratio Glucose 126 H (70-110) mg/dL Calcium 8.5 L (8.7-10.3) mg/dL Total Bilirubin 3.60 H (0.30-1.20) mg/dL AST 127 H (13-35) U/L ALT 226 H (8-44) U/L Alkaline Phosphatase 337 H (41-126) U/L Total Protein 5.4 L (6.2-8.2) g/dL Albumin 3.4 L (3.8-4.9) g/dL Lipase 1656 H (14-63) U/L Assessment and Plan (1) Elevated LFTs Narrative/Plan: 66-year-old female who presented to the emergency department 2 days ago with complaints of abdominal pain radiating to her back. She had a CT of the abdomen and pelvis showing some mild biliary dilation along with mildly distended gallbladder. she was admitted to general surgery and underwent a laparoscopic cholecystectomy for cholecystitis 2 days ago. She apparently was having some complaints of increased abdominal pain this morning with some nausea and dry heaves. LFTs have been increasing over last 2 days duration. Bilirubin stable at 1.2. Gen. surgery was concern for possible choledocholithiasis and consulted gastroenterology. MRCP is ordered. Patient had prior MRCP in June of this year for prior intrahepatic biliary dilation follow-up. Patient currently evaluated without any abdominal pain nausea or vomiting. We will order that repeat MRCP await findings. Repeat CMP in the morning. Further recommendations forthcoming. Current Visit: Yes Status: Acute Code(s): R79.89 - OTHER SPECIFIED ABNORMAL FINDINGS OF BLOOD CHEMISTRY SNOMED Code(s): 942402943 (2) Choledocholithiasis Narrative/Plan: Patient underwent MRCP today showing evidence of complete cholelithiasis with intrahepatic biliary dilation and at least 2 stones noted. Patient also has continued elevation in her LFTs, elevated lipase and abdominal pain looking like gallstone pancreatitis related to choledochal lithiasis. The plan is for ERCP tomorrow. Please hold Toradol and heparin. Continue IV antibiotics. Current Visit: Yes Status: Acute Code(s): K80.50 - CALCULUS OF BILE DUCT W/O CHOLANGITIS OR CHOLECYST W/O OBST SNOMED Code(s): 146038033 (3) Cholecystitis Current Visit: Yes Status: Acute Code(s): K81.9 - CHOLECYSTITIS, UNSPECIFIED SNOMED Code(s): 69433005 Plan: 1. Continue symptomatic and supportive care 2. Clear liquid diet, nothing by mouth after midnight 3. ERCP scheduled for tomorrow morning. Procedure discussed with patient and who was at the bedside including risks and benefits. Patient seemingly understands and is willing to proceed. 4. Nothing by mouth after midnight 5. Pain medications and antiemetics as needed 6. Hold heparin and cancel Toradol 7. Indomethacin ordered, given 1 hour prior to procedure 8. PT/INR ordered Thank you for this consultation, we will continue to follow Dr. Ginny Lancaster I agree with the dictator's note, documented as a scribe by Haylie Tamayo.
[2021-11-19 20:07] VITALS: TEMP 98.3
--- NOTE | 2021-11-19 21:48 | PN ---
PROGRESS NOTE CHIEF COMPLAINT: Status post cholecystectomy and abdominal pain. HISTORY OF PRESENT ILLNESS: This lady is having a lot of trouble with epigastric pain and bloating. Her liver enzymes are actually going up and not down. She has had no fever or chills. She has had no shortness of breath, cough, or chest pain. PHYSICAL EXAMINATION: VITAL SIGNS: She is afebrile. CHEST: Clear. CARDIAC: Normal. GI: She is tender over the epigastric and upper abdominal area. Bowel sounds are heard. IMPRESSION: 1. Postop cholecystectomy. 2. Upper abdominal pain. 3. Elevating liver enzymes. PLAN: 1. Flat and upright films of the abdomen. 2. Repeat blood work. 3. Lactic acid. 4. Blood cultures. 5. Lipase. 6. Surgery is watching her and an MRCP has been ordered. MMODL / IJN: [id number] /
[2021-11-20] MEDS: METOCLOPRAMIDE 5 MG/ML 2 ML VIAL IVP SCH ×3 (00:14→12:02)
[2021-11-20] MEDS: PIPERACILLIN-TAZOBACTAM 3.375 GM in SODIUM CHLORIDE 0.9% 100 ML IVPB SCH ×2 (00:15→06:39)
[2021-11-20] MEDS ORDERED: INDOMETHACIN 50MG SUPPOSITORY RECTAL ONE (06:00)
[2021-11-20] MEDS: FAMOTIDINE 20 MG TAB PO SCH ×2 (06:30→09:19)
[2021-11-20] MEDS: HEPARIN SODIUM,PORCINE/PF 5,000 UNIT/0.5 ML SYRINGE SQ SCH (06:30)
[2021-11-20] MEDS ORDERED: GLYCOPYRROLATE 0.2 MG/ML 2 ML VIAL ONE (06:57)
[2021-11-20] MEDS ORDERED: PROPOFOL 10 MG/ML 20 ML VIAL IV ONE (06:57)
[2021-11-20] MEDS ORDERED: MIDAZOLAM 2 MG/2 ML VIAL ONE (06:57)
[2021-11-20] MEDS ORDERED: KETAMINE 10 MG/ML 20 ML VIAL ONE (06:57)
[2021-11-20] MEDS ORDERED: IV FLUID CONTINUATION 900 ML IV ONE (06:59)
[2021-11-20] MEDS ORDERED: IOPAMIDOL-300 50ML BTL MISCELLANE ONE (07:15)
--- NOTE | 2021-11-20 07:30 | P.PCN ---
Date of Procedure: 11/20/21 Procedure(s) Performed: Brief history: Patient is a 66 year-old pleasant lady scheduled for an ERCP as part of evaluation of abdominal pain and elevated serum transaminases for the last 5 days' duration. She underwent an laparoscopic cholecystectomy 3 days ago for symptomatic gallstones. Following this surgery LFTs continue to increase and she became jaundiced yesterday. Bilirubin was 3.1. MRCP revealed 2 stones in the distal common bile duct and hence scheduled for an ERCP to evaluate for choledocholithiasis Procedure performed: ERCP with biliary sphincterotomy and balloon sweep Preoperative diagnoses: Choledocholithiasis IV sedation per anesthesia: Procedure: After informed consent was obtained from the patient and after the risks benefits and complications including bleeding perforation and pancreatitis explained in detail the patient was brought into the endoscopy unit. The patient was placed in prone position and IV conscious sedation was administered by anesthesia under continuous monitoring. The Olympus side-viewing duodenoscope was then inserted into the mouth and esophagus intubated without any difficulty. The scope was gradually advanced into the stomach and duodenum. The major papilla was identified without any difficulty. Initial cannulation resulted in presentation the common bile duct and upon injection of the dye the common bile duct appeared slightly dilated measuring 9 mm in diameter. There were no filling defects noted. But because of the findings of MRCP and proceeded with a biliary sphincterotomy over a guidewire after it was exchanged the catheter. At this time a biliary sphincterotomy was performed at 11 o'clock position and was extended to 1 cm in length. Following this the 11 mm balloon was passed over the guidewire into the proximal CBD, gently inflated and gradually withdrawn and I did not see any stones exiting the ampulla. This narendra uver was repeated 2 more times. Occlusion cholangiogram was performed and no filling defects were noted. Pancreatic duct was intentionally not cannulated. Patient tolerated the procedure well. Impression: Slightly dilated common bile duct with no filling defects status post biliary sphincterotomy as described above followed by balloon sweep and no stones were seen exiting the ampulla Pancreatic duct intentionally not cannulated Recommendations: The findings of this examination were discussed with the patient as well as a family. She will be on clear liquid diet for breakfast and he can be advanced as tolerated for lunch. Await labs from this morning. She can be discharged home today or tomorrow.
--- NOTE | 2021-11-20 09:06 | FL ---
Intraoperative/procedural fluoroscopic services were provided. Total fluoroscopy time is 1 minute 33 seconds seconds with a total of 5 submitted images to PACS. Please see the operative/procedural note for further details.
[2021-11-20] MEDS: SODIUM CHLORIDE 0.9% 1,000 ML IV SCH (09:17)
[2021-11-20] MEDS: SIMETHICONE 40 MG/0.6 ML DROPS 2,000 MG/30 ML BOTTLE PO SCH ×2 (09:17→12:02)
[2021-11-20] MEDS ORDERED: MAGNESIUM HYDROXIDE 2,400 MG/10 ML CUP PO PRN (10:38)
--- NOTE | 2021-11-20 11:10 | P.PN ---
Subjective Progress Note Date: 11/20/21 Principal diagnosis: Cholecystitis Patient says she feels much better today. She underwent ERCP this morning. No obvious stones were seen but sphincterotomy was performed. CALI drain remained serosanguineous. Objective - Vital Signs Vital signs: Vital Signs Temp 98.3 F 11/20/21 02:04 Pulse 73 11/20/21 02:04 Resp 17 11/20/21 02:04 BP 142/78 11/20/21 02:04 Pulse Ox 96 11/20/21 02:04 FiO2 Intake & Output 11/19/21 11/20/21 11/20/21 18:59 06:59 18:59 Intake Total 100 200 Output Total 10 Balance 100 -10 200 Intake: IV 200 Intake, IV Titration 100 Amount Piperacillin-Tazobactam 3 100 .375 gm In Sodium Chloride 0.9% 100 ml @ 25 mls/hr IVPB Q8HR [facility] Rx# :[id number] Output: Drainage 10 Lower Abdomen 10 Other: Voiding Method Toilet Toilet # Voids 2 - Exam Abdomen: Soft, nondistended, incisions clean and dry, CALI drain sterile dressing was, minimal incisional tenderness - Labs CBC & Chem 7: 11/19/21 06:44 11/19/21 06:44 Labs: Abnormal Lab Results - Last 24 Hours (Table) 11/19/21 Range/Units 06:44 Potassium 3.4 L (3.5-5.5) mmol/L BUN 6.3 L (9.0-27.0) mg/dL BUN/Creatinine Ratio 7.88 L (12.00-20.00) Ratio Glucose 126 H (70-110) mg/dL Calcium 8.5 L (8.7-10.3) mg/dL Total Bilirubin 3.60 H (0.30-1.20) mg/dL AST 127 H (13-35) U/L ALT 226 H (8-44) U/L Alkaline Phosphatase 337 H (41-126) U/L Total Protein 5.4 L (6.2-8.2) g/dL Albumin 3.4 L (3.8-4.9) g/dL Lipase 1656 H (14-63) U/L Microbiology - Last 24 Hours (Table) 11/18/21 12:11 Blood Culture - Preliminary Blood No Growth after 24 hours Assessment and Plan (1) Cholecystitis Narrative/Plan: Patient doing well at this time. Gradually resume diet. If pain remains controlled May discharge later today. Current Visit: Yes Status: Acute Code(s): K81.9 - CHOLECYSTITIS, UNSPECIFIED SNOMED Code(s): 09026174
[2021-11-20 12:30] VITALS: BP 131/84; PULSE 99; RESP 18
--- NOTE | 2021-11-21 01:05 | PN ---
PROGRESS NOTE CHIEF COMPLAINT: Status post cholecystectomy. HISTORY OF PRESENT ILLNESS: This lady is doing well. She is improving. She may be going home later today. PHYSICAL EXAMINATION: CHEST: Clear. CARDIAC: Exam is normal. IMPRESSION: 1. Status post cholecystectomy. 2. Choledocholithiasis. 3. Hypertension. PLAN: She may be going home today. MMODL / IJN: [id number] /
--- NOTE | 2021-11-22 10:12 | PN ---
PROGRESS NOTE CHIEF COMPLAINT: Status post cholecystectomy. HISTORY OF PRESENT ILLNESS: This lady is doing fairly well, but she is complaining of some epigastric pain. She has had no fever, chills, nausea, vomiting, etc. PHYSICAL EXAMINATION: VITAL SIGNS: Normal. CHEST: Clear. CARDIAC: Normal. ABDOMEN: Bowel sounds are heard. IMPRESSION: Status post cholecystectomy. PLAN: Increase activity and diet, probably home tomorrow. MMODL / IJN: [id number] /
--- NOTE | 2021-11-27 19:57 | PN ---
PROGRESS NOTE CHIEF COMPLAINT: Status post cholecystectomy with abdominal pain and rising liver enzymes. HISTORY OF PRESENT ILLNESS: This lady is still having quite a bit of upper abdominal discomfort. She has had no fever or chills. AST and ALT are rising slightly. There would be a concern at this point about active common duct stone or ascending cholangitis. PHYSICAL EXAMINATION: CHEST: Clear. CARDIAC: Normal. ABDOMEN: She is tender over the upper abdomen. She is afebrile. IMPRESSION: Status post cholecystectomy with upper abdominal pain. She is being re-evaluated and MRCP is ordered. MMODL / IJN: [id number] /
--- NOTE | 2022-02-03 10:12 | CDI ---
Documentation Clarification Form Date: 02/03/2022 From: Analy Lambert Admit Date: 11/18/2021 11:42:00 AM Patient Name: Deloris Rose Visit Number: [id number] Discharge Date: 11/20/2021 03:20:00 PM ATTENTION: The Clinical Documentation Specialists (CDI) and [facility] Coding Staff appreciate your assistance in clarifying documentation. Please respond to the clarification below the line at the bottom and electronically sign. The CDI & [facility] Coding staff will review the response and follow-up if needed. Please note: Queries are made part of the Legal Health Record. If you have any questions, please contact the author of this message via ITS. Dr. Tyler Elliott Postoperative ileus is documented in the surgical progress note on 11/19. Additional clarification is requested regarding the relationship, if any, that exists between the diagnosis and the procedure. Pt was discharged on 11/20. Patients Admitting Diagnosis: acute cholecystitis Post-Operative Diagnosis: cholecystitis w/ significant inflammation Procedure performed 11/16: lap cholecystectomy History/Risk Factors: Cholelithiasis Clinical Indicators: Abd x-ray 11/18: mild gaseous distension of the colon suggests colonic ileus Surg PN 11/20: pt underwent an ERCP w/ spincterotomy Treatment: Reglan IV What relationship, if any, exists between the diagnosis of the postoperative ileus and the procedure: [ ] is a complication of surgical procedure [ ] is an expected outcome of the surgical procedure [ ] is not clinically significant [ ] Other please specify [ xx] Unable to determine MTDD
== END 2021-11-20 15:20 | disposition home or self-care (01) | DRG 418 ==
LOC: EC 02:59 → 6NMEDSUR 05:34 → 2SICU 16:13 → 4SSUR 11-17 00:40 → OBSVTOIN 11-18 11:42
PROVIDERS: ADMIT Surgery; ATTEND Surgery
PROC: 0FT44ZZ Resection of Gallbladder, Percutaneous Endoscopic Approach (ICD-10-PCS; principal; 2021-11-16 09:45)
PROC: 0F7C8ZZ Dilation of Ampulla of Vater, Via Natural or Artificial Opening Endoscopic (ICD-10-PCS; 2021-11-20)
DX: K80.10 Calculus of gallbladder with chronic cholecystitis without obstruction (principal); J98.11 Atelectasis; R17 Unspecified jaundice; K56.7 Ileus, unspecified; J45.909 Unspecified asthma, uncomplicated; I10 Essential (primary) hypertension; K83.8 Other specified diseases of biliary tract; E78.5 Hyperlipidemia, unspecified; R79.89 Other specified abnormal findings of blood chemistry; K82.8 Other specified diseases of gallbladder; E87.6 Hypokalemia; M19.90 Unspecified osteoarthritis, unspecified site; Z96.652 Presence of left artificial knee joint; Z88.5 Allergy status to narcotic agent; Z88.8 Allergy status to other drugs, medicaments and biological substances; Z79.51 Long term (current) use of inhaled steroids; Z79.82 Long term (current) use of aspirin; Z79.899 Other long term (current) drug therapy; Z98.890 Other specified postprocedural states; Z84.89 Family history of other specified conditions
CPT/HCPCS: 36415; 43262; 71046; 74021; 74176; 74181; 74328; 80053; 81003; 82150; 83605; 83690; 85025; 85610; 85730; 87040; 88304; 96374; 96375; 99285

== ENCOUNTER → 2022-11-04 | Outpatient (CLI) | payer OTHER ==
--- NOTE | 2022-11-07 09:32 | MM ---
Reason for Exam: Screening (asymptomatic). Last mammogram was performed 1 year(s) and 2 month(s) ago. Patient History: Menarche at age 11. First Full-Term at age 28. Postmenopausal. Patient has history of breast feeding. 2014, Stereotactic Core Biopsy on the Left side. Maternal grandmother had breast cancer, age 87. Risk Values: Светлана 5 year model risk: 2.4%. NCI Lifetime model risk: 8.6%. Prior Study Comparison: 08/12/2015 Bilateral Diagnostic Mammogram, [facility]. 03/09/2016 Bilateral Screening Mammogram, [facility]. 04/13/2017 Bilateral Screening Mammogram, [facility]. 05/09/2019 Bilateral Screening Mammogram, [facility]. 07/09/2020 Bilateral Screening Mammogram, [facility]. 09/01/2021 Bilateral MG screening mammo w CAD, [facility]. Tissue Density: The breast tissue is almost entirely fat. Findings: Analyzed By CAD. Left breast biopsy clip. There is no suspicious group of microcalcifications or new suspicious mass in either breast. Overall Assessment: Benign, BI-RAD 2 Management: Screening Mammogram of both breasts in [address] [facility] will attempt to contact patient to return for supplemental views and ultrasound if indicated. Patient should continue monthly self-breast exams. A clinical breast exam by your physician is recommended on an annual basis. This exam should not preclude additional follow-up of suspicious palpable abnormalities. Note on Светлана scores and lifetime risk: 1. A Светлана score greater than 3% is considered moderate risk. If this is the case, consider specialist referral to assess eligibility for a risk reducing agent. 2. If overall lifetime risk for the development of breast cancer is 20% or higher, the patient may qualify for future screening with alternating mammogram and breast MRI. Electronically signed and approved by: Supa Giron DO
== END | disposition home or self-care (01) ==
LOC: RADMAMWWP 07:59
PROVIDERS: ATTEND Family Medicine
DX: Z12.31 Encounter for screening mammogram for malignant neoplasm of breast (principal); Z78.0 Asymptomatic menopausal state; Z80.3 Family history of malignant neoplasm of breast
CPT/HCPCS: 77063; 77067

== ENCOUNTER → 2023-06-23 | Outpatient (CLI) | payer OTHER | END | disposition home or self-care (01) | LOC: LABPAT 13:17 | PROVIDERS: ATTEND Orthopaedic Surgery | DX: Z01.812 Encounter for preprocedural laboratory examination (principal); Z22.322 Carrier or suspected carrier of Methicillin resistant Staphylococcus aureus; M17.11 Unilateral primary osteoarthritis, right knee | CPT/HCPCS: 87070 ==

== ENCOUNTER 2023-08-22 05:45 | Day surgery (SDC) | payer OTHER ==
--- NOTE | 2023-08-21 10:23 | P.HPOR ---
History of Present Illness H&P Date: 08/21/23 Chief Complaint: Right knee pain The patient is a 67-year-old female who presents with progressive right knee pain for the past several years worsening recently. She's having pain with weightbearing activities. She notes locking and buckling. She's tried medications along with previous injections with only temporary partial relief. She notes daily pain that limits her. Review of Systems As per HPI Past Medical History Past Medical History: Asthma, Cancer, Deep Vein Thrombosis (DVT), Eye Disorder, Hyperlipidemia, Hypertension, Osteoarthritis (OA) Additional Past Medical History / Comment(s): Skin poro cancer removed, dvt L knee post operatively, bilateral glaucoma History of Any Multi-Drug Resistant Organisms: None Reported Past Surgical History: Section, Hernia Repair, Joint Replacement Additional Past Surgical History / Comment(s): Umbilical, Hemorrhoidectomy, D&C, Colonoscopy. TOTAL LT KNEE 08/07/18 Past Anesthesia/Blood Transfusion Reactions: No Reported Reaction Smoking Status: Never smoker - Past Family History Mother Family Medical History: Hypertension Additional Family Medical History / Comment(s): Subdural Hematoma Medications and Allergies Home Medications Medication Instructions Recorded Confirmed Type Atenolol/Chlorthalidone 1 tab PO HS 11/16/21 08/17/23 History [Atenolol/Chlorthalidone 50-25] Budesonide/Formoterol Fumarate 2 puff INHALATION QAM 11/16/21 08/17/23 History [Symbicort 80-4.5 Mcg Inhaler] Ergocalciferol [Vitamin D2 (1250 1,250 mcg PO QMONTHLY 11/16/21 08/17/23 History Mcg = 32341 Iu)] Losartan Potassium [Cozaar] 50 mg PO HS 11/16/21 08/17/23 History Simvastatin [Zocor] 40 mg PO HS 11/16/21 08/17/23 History Brimonidine Tartrate [Brimonidine 1 drop BOTH EYES BID 08/17/23 08/17/23 History Tartrate 0.1% Ophth Soln] Chlorthalidone 25 mg PO HS 08/17/23 08/17/23 History Latanoprost [Latanoprost 0.005%] 1 drop BOTH EYES HS 08/17/23 08/17/23 History Allergies Allergy/AdvReac Type Severity Reaction Status Date / Time morphine Allergy Rash/Hives Verified 08/17/23 10:31 atorvastatin [From Lipitor] AdvReac Nausea & Verified 08/17/23 10:31 Vomiting Physical Examination - Knee right Appearance: effusion Effusion grade: grade 3 Varus alignment in stance: 10 degrees Tenderness with palpation: anterior, medial Pain: throughout ROM Gait: limping ROM: extension: -15 degrees ROM: flexion: 80 degrees Crepitus with motion: Yes Strength: extension: 5/5 Strength: flexion: 5/5 Meniscal tests: medial meniscal tests: positive, medial joint line pain: positive Results The patient is a well-developed female approximately 5 foot 6, 225 pounds of endomorphic habitus. HEENT exam is nonfocal, neck is supple. She has painless passive motion of the right hip. Straight leg raise is negative. She is tender about the medial joint line of the right knee. She has a large effusion. Collaterals are stable, Yuan was negative, Francisco's elicits medial pain. Her distal neurovascular appears intact in the right lower extremity. - Diagnostic results Knee x-ray: image reviewed (3 views of the right knee obtained the office show severe osteoarthrosis with [id number] changes and subchondral sclerosis.) Assessment and Plan Assessment: Right knee severe medial and patellofemoral compartment osteoarthrosis Plan: I talked to the patient at length regarding her condition along with treatment options. At this point she is quite symptomatically limited because of pain related to her right knee osteoarthrosis despite conservative measures. After a thorough discussion she opts to proceed with surgery. We will plan to proceed with right total knee arthroplasty. Risks and benefits were discussed at length in layman's terms. We will institute DVT prophylaxis postoperatively.
[~2023-08-22 05:45] MED LIST changes: -ACETAMINOPHEN TAB 500 MG TAB PO ONE; -DEXAMETHASONE SOD PHOSPHATE 10 MG/ML 1 ML VIAL IV ONE; -LIDOCAINE 1% 20 ML VIAL (10MG/ML) FOR IV START INTRADERMA PRN; -MELOXICAM 7.5 MG TAB PO ONE; -ONDANSETRON 4 MG/2 ML VIAL IVP ONE; -SCOPOLAMINE 1.5MG/72HR PATCH TRANSDERM ONE; +TRANEXAMIC 1,000 MG/100ML-NACL 1,000 MG in SALINE 1 100ML.BAG IVPB PRN; -TRANEXAMIC ACID 1,000 MG in SODIUM CHLORIDE 0.9% 100 ML IVPB ONE; -ceFAZolin IN SWFI 2 GM/20 ML SYRINGE IVP ONE
[2023-08-22] MEDS ORDERED: LIDOCAINE 1% (10MG/ML) FOR IV START INTRADERMA PRN (05:57)
[2023-08-22] MEDS: LACTATED RINGERS 1,000 ML IV SCH (06:14)
[2023-08-22] MEDS: ACETAMINOPHEN TAB 500 MG TAB PO PRN (06:47)
[2023-08-22] MEDS: MELOXICAM 7.5 MG TAB PO PRN (06:47)
[2023-08-22] MEDS: DEXAMETHASONE SOD PHOSPHATE 4 MG/ML 1 ML VIAL IVP ONE (06:48)
[2023-08-22] MEDS: ONDANSETRON 4 MG/2 ML VIAL IVP ONE (06:48)
[2023-08-22] MEDS: MIDAZOLAM 2 MG/2 ML VIAL IVP ONE (06:55)
[2023-08-22] MEDS ORDERED: fentaNYL (PF) 50 MCG/ML 2 ML AMP IV PRN (07:00)
[2023-08-22] MEDS ORDERED: MIDAZOLAM 2 MG/2 ML VIAL ONE (07:24)
[2023-08-22] MEDS ORDERED: TRANEXAMIC 1,000 MG/100ML-NACL PREMIX BAG ONE (07:24)
[2023-08-22] MEDS ORDERED: PROPOFOL 10 MG/ML 20 ML VIAL IV ONE (07:24)
[2023-08-22] MEDS ORDERED: SODIUM CHLORIDE 0.9% (PF) 10 ML VIAL ONE (07:24)
[2023-08-22] MEDS ORDERED: ePHEDrine 50 MG/ML 1 ML VIAL ONE (07:24)
[2023-08-22] MEDS ORDERED: fentaNYL (PF) 50 MCG/ML 2 ML AMP ONE (07:24)
[2023-08-22] MEDS ORDERED: ROPIVACAINE 5 MG/ML 30 ML VIAL ONE (07:24)
--- NOTE | 2023-08-22 08:00 | P.ANPRN ---
Procedure Note - Anesthesia - Nerve Block Performed Right Adductor Canal Infusion Time Out Performed: Yes (653) Date of Procedure: 08/22/23 Location of Patient: PreOp Indication: Acute Post-Operative Pain, Analgesia, Dx/Pain Location (Right knee), Requested by Surgeon Specifically requested for management of pain by Dr.: Hayden London Sedation Type: Sedate with meaningful contact maintained Preparation: Sterile Prep, Sterile Dressing Position: Supine Catheter: Indwelling Needle Types: Pajunk Needle Gauge: 18 Ultrasound used to visualize needle placement: Yes Ultrasound used to observe medication spread: Yes Injectate: 0.5% Ropivacaine (see comment for volume) (20 mL +10 mL of normal saline) Blood Aspirated: No Pain Paresthesia on Injection Noted: No Resistance on Injection: Normal Image Stored and Saved: Yes Events: Uneventful and Well Tolerated Right iPack Single Time Out Performed: Yes (653) Date of Procedure: 08/22/23 Location of Patient: PreOp Indication: Acute Post-Operative Pain, Analgesia, Dx/Pain Location (Right knee), Requested by Surgeon Specifically requested for management of pain by Dr.: Hayden London Sedation Type: Sedate with meaningful contact maintained Position: Left Lateral Catheter: None Needle Types: Pajunk Needle Gauge: 21 (100 mm) Ultrasound used to visualize needle placement: Yes Ultrasound used to observe medication spread: Yes Injectate: 0.5% Ropivacaine (see comment for volume) (20 mL +10 mL of normal saline) Blood Aspirated: No Pain Paresthesia on Injection Noted: No Resistance on Injection: Normal
[2023-08-22] MEDS ORDERED: HYDROcodone/APAP 5-325MG 1 EACH TAB PO PRN (09:13)
[2023-08-22] MEDS ORDERED: hydrOXYzine pamoate 25 MG CAP PO PRN (09:13)
[2023-08-22] MEDS ORDERED: HYDROmorphone 0.5 MG/0.5 ML SYRINGE IVP PRN ×2 (09:13)
[2023-08-22] MEDS ORDERED: MAGNESIUM HYDROXIDE 2,400 MG/30 ML CUP PO PRN (09:13)
[2023-08-22] MEDS ORDERED: NALOXONE 0.4 MG/ML 1 ML VIAL IV PRN (09:13)
--- NOTE | 2023-08-22 09:36 | P.OP ---
Date of Procedure: 08/22/23 Preoperative Diagnosis: Right knee severe tricompartmental osteoarthrosis Postoperative Diagnosis: Same Procedure(s) Performed: Right total knee arthroplastycementedposterior stabilized Implants: [employer] journey 2 size 4 cemented femoral component, size 3 cemented tibial component, 11 mm articular surface, 32 mm cemented patellar component. This is a posterior stabilized implant. Anesthesia: regional, spinal Surgeon: Hayden London Net Developer With [facility]: Ryan Granados Estimated Blood Loss (ml): 50 Pathology: none sent Condition: stable Disposition: PACU Indications for Procedure: The patient is a 67-year-old female who presents with progressive right knee pain secondary to osteoarthrosis despite conservative measures. A discussion of the risks and benefits of operative intervention versus continued conservative measures was made with the patient. She opted to proceed with surgery. Operative risks include infection, neurovascular injury, development of blood clots, fracture, possible component loosening/failure and possible need for subsequent procedures was discussed. Informed consent was obtained. Operative Findings: As below Description of Procedure: The patient was brought to the operating room, and after induction of spinal anesthesia the right lower extremity was prepped and draped in a normal fashion. The tourniquet was inflated to 270 mm marker. A longitudinal incision extending 3 finger breaths above the superior pole of patella extending to the medial aspect the tibial tubercle was then made. The skin and subcutaneous tissues were divided sharply. Electrocautery was used for hemostasis. A medial parapatellar arthrotomy was performed. The medial soft tissues to include the superficial and deep portions of the medial collateral ligament were elevated subperiosteally. The patella was everted. A portion of the retropatellar fat pad was excised sharply. The anterior cruciate ligament was sacrificed. Blunt retractors were placed. A starting hole was made in the distal femur 1 cm anterior to the posterior cruciate ligament origin. An intramedullary femoral guide was then inserted planning on 5 valgus distal cut with 9 mm distal resection. The cutting block was pinned in place. The distal cut was then made. The posterior referencing sizing guide was utilized. I felt size 4 was most appropriate. 3 of external rotation was built into the system and verified off the trans-epicondylar axis and the posterior condyles. The cutting block was pinned in place. The anterior, posterior, and chamfer cuts then made. Bone fragments were removed. The intercondylar guide was placed and the notch was prepared with the notch reamer. The trial component was then placed. There is good anterior to posterior and medial to lateral fit. The distal peg holes were drilled. The trial component was removed. Attention was then paid towards preparing the proximal tibia. An extra medullary guide was utilized in line with the tibial shaft and second metatarsal distally. I planned on 2 mm resection from the medial compartment. The cutting block was pinned in place. The proximal tibial cut was then made. The bone was removed in one fragment. The remnants of the medial and lateral menisci were excised at the capsular junction with electrocautery. The tibia sized most appropriately at size 3. The trial femoral and tibial components were placed along with a 11 mm articular surface. I was able to obtain full flexion and extension with internal and external rotation. After several flexion and extension cycles, the tibial rotation was marked with electrocautery line with the medial one third of the tibial tubercle. Attention was then paid towards preparing the patella. A patella reamer was utilized taking stem to 14 mm of bone stock. A good flush cut was made. The patella sized most appropriately 32 mm. The peg holes were drilled. The trial components placed. I had good patellofemoral tracking with no hands technique. The trial components were then removed. The tibia was prepared in the appropriate rotation with appropriate drill and keel punch. The posterior osteophytes were removed with a curved osteotome. The flexion and extension gaps were checked and felt to be symmetric at 11 mm. A trial components were then removed. The bony surfaces were prepared with pulsatile lavage and dried. The tibial component was then cemented place was fully seated. Excess cement was removed. The femoral component cemented place and was fully seated. Excess cement was removed. The trial 11 mm articular surface was placed and the knee was put in full extension. The patella component was cemented place. After the cement had sufficiently hardened, the knee was again taken through a range of motion. Again I was able to obtain full flexion and extension with varus and valgus stress. The trial 11 mm articular surface was removed and the final one inserted. This was fully seated. Care was taken to avoid any soft tissue interposition. Pulsatile lavage was again utilized. The medial parapatellar arthrotomy was closed with #2 Ethibond suture. The tourniquet was deflated with approximately 60 minutes total tourniquet time. Final hemostasis was obtained with the cautery. There was minimal bleeding therefore a deep drain was not placed. The subcutaneous tissues were reappr oximated with interrupted 2-0 Vicryl sutures. The skin was reapproximated with 3-0 subcuticular strata fix suture. Skin tape and adhesive was applied. A sterile dressing was applied. The patient was awoken from sedation and transferred to recovery room in good condition. Blood loss was estimated at 50 mL. No complications were incurred. Sponge and needle counts were correct at the end of the case. Ryan SEN assisted during the major components of this case to include exposure, bone resection, implantation, and closure.
[2023-08-22] MEDS: ROPIVACAINE 1,100 MG, SODIUM CHLORIDE 0.9% 500 ML 330 ML, EMPTY PAIN BALL 1 EACH MISCELLANE PRN (09:48)
--- NOTE | 2023-08-22 10:19 | XR ---
EXAMINATION TYPE: XR knee limited 2 views RT DATE OF EXAM: 08/22/2023 Comparison: None Clinical History: 67-year-old female Evaluation for Postop abnormality and alignment Findings: Images show placement of right total knee arthroplasty. Both distal femoral and proximal tibial compo nents of the prosthesis are well seated without periprosthetic fracture. Alignment grossly anatomic. Anterior soft tissue swelling with soft tissue air as well as intra-articular air related to recent o peration. Impression: Uncomplicated postoperative appearance right total knee arthroplasty.
[2023-08-22] MEDS: SENNOSIDES-DOCUSATE SODIUM 1 EACH TAB PO SCH (20:41)
[2023-08-22] MEDS: HYDROcodone/APAP 7.5-325MG 1 EACH TAB PO PRN (20:42)
[2023-08-22] MEDS: BRIMONIDINE TARTRATE 0.2% DROPS 5 ML BTL BOTH EYES SCH (22:04)
[2023-08-22] MEDS: CHLORTHALIDONE 25 MG TAB PO SCH (22:04)
[2023-08-22] MEDS: atenoloL 50 MG TAB PO SCH (22:04)
[2023-08-22] MEDS: LOSARTAN 50 MG TAB PO SCH (22:04)
[2023-08-22] MEDS: ATORVASTATIN 20 MG TAB PO SCH (22:04)
[2023-08-22] MEDS: LATANOPROST 0.005% OPHTH DROPS 2.5 ML BTL BOTH EYES SCH (22:05)
--- NOTE | 2023-08-23 07:26 | P.PN ---
Progress Note - Text Progress Note Date: 08/23/23 Postoperative day # 1 status post total knee arthroplasty, on adductor canal perineural catheter placed for postoperative analgesia. Ropivacaine 0.2% 8 mL per hour through ON-Q pump continuous infusion. Pain is well controlled. On visual analog scale 3/10 Patient is taking PRN oral pain medications. Catheter site: Looks Ok. There is no erythema or tenderness. Continue with the current pain management plan and will follow.
[2023-08-23] MEDS: RIVAROXABAN 10 MG TAB PO SCH (07:38)
[2023-08-23 08:56] VITALS: BP 114/68; PULSE 82; RESP 15; TEMP 98.5
[2023-08-23] MEDS: SYMBICORT 80-4.5 MCG INHALER INHALATION SCH (09:03)
[2023-08-23 09:16] LABS: Basophils # (A) 0.03 X 10*3/uL (0.00-0.10); Basophils % (A) 0.3 %; Eosinophils # (A) 0.04 X 10*3/uL (0.04-0.35); Eosinophils % (A) 0.4 %; HCT 34.8 % (37.2-46.3); HGB 11.3 g/dL (12.0-15.0); Lymphocytes # (A) 1.17 X 10*3/uL (0.90-5.00); MCH 29.9 pg (27.0-32.0); MCHC 32.5 g/dL (32.0-37.0); MCV 92.1 FL (80.0-97.0); Mean Platelet Volume 11.3 FL (9.5-12.2); Monocytes % (A) 7.2 %; NRBC Per 100 WBC 0 X 10*3/uL (0.00-0.01); Neutrophils # (A) 7.75 X 10*3/uL (1.80-7.70); Neutrophils % (A) 79.5 %; Platelet Count 192 X 10*3/uL (140-440); RBC 3.78 X 10*6/uL (4.10-5.20); RDW 13.4 % (11.5-14.5); WBC 9.75 X 10*3/uL (4.50-10.00)
--- NOTE | 2023-08-23 12:31 | P.DS ---
Providers Date of admission: 08/22/2023 Expected date of discharge: 08/23/23 Attending physician: Hayden London Consults: 08/22/23 09:13 Consult Physician Routine Consulting Provider: Archie Doherty Reason/Comments: medical management s/p right total knee arthroplasty Do you want consulting provider notified?: Yes Primary care physician: Archie Doherty Hospital Course: Date of admission: 08/22/2023 Date of discharge: 08/23/2023 Admission diagnosis: Right knee osteoarthritis Discharge diagnosis: Same Attending physician: Dr. London Surgical procedures: Right total knee arthroplasty Brief history: Patient is a 67-year-old female with a history of progressive primary right knee osteoarthritis. At this point patient has failed conservative treatment measures and has opted to proceed with a elective right total knee arthroplasty. Hospital course: Details of patient's surgery can be found in operative report. Patient tolerated the procedure well and was subsequently transported to orthopedic floor. Patient's orthopeidc and medical care was provided daily. Patient had daily laboratory tests performed for evaluation of overall blood counts. Patient had daily physical therapy to include strengthening range of motion as well as education with walker ambulation. Patient was treated with Xarelto for their postoperative DVT prophylaxis during their inpatient stay. Patient was noted to have a relatively uneventful postoperative course. Patient reported satisfactory pain control with oral pain medications by postoperative day 1. Patient showed satisfactory progress with physical therapy. Patient moved steadily through the program and had no difficulty meeting the goals by postoperative day 1. Given patient's otherwise satisfactory course and having met physical therapy goals, plan is to discharge patient home with health services on postoperative day 1. Discharge condition/disposition: Patient will be discharged home with [facility] in stable condition. Discharge medications: Instructions are given on resumption of patient's normal daily medications per primary care recommendation, in addition patient will be prescribed [place]; senna; Eliquis 2.5 mg twice daily x 2 weeks. Discharge instructions: 1. Wound care and infection precautions, keep incision dry and covered while showering, no lotions, creams, moisturizers. No soaking, tubs, pools, hottubs. Do not scrub over the incision. 2. Weight-bear as tolerated with walker / cane until follow-up. 3. Ice and elevate when necessary. Do not exceed 20 minutes per hour with ice pack. 4. Utilize compression sleeve until seen at first follow up appointment. 5. Visiting nursing care. 6. Home physical therapy including home CPM. 7. Pain meds and anticoagulants per prescription. 8. Pain medication has potential to cause constipation. Increase oral fluid and fiber intake. Contact primary care provider if you have not had a bowel movement within 48 hours after discharge 9. No anti-inflammatory medication until discussed at first post operative visit, this including Motrin, Aleve, Mobic, Diclofenac. 10. Follow up in office at 2 weeks postop with Shemar Murphy PA-C / Ryan Granados PA-C 11. Follow up with your primary care doctor 7-10 days after discharge. 12. Contact [facility] with any questions, . Assessment: Right knee osteoarthritis Procedures: Right total knee arthroplasty Patient Condition at Discharge: Good Plan - Discharge Summary Discharge Rx Participant: No New Discharge Prescriptions: New Sennosides/Docusate Sodium [Senna Plus 8.6-50 mg Softgel] 1 each PO DAILY #20 capsule Apixaban [Eliquis] 2.5 mg PO BID #60 tab HYDROcodone/APAP 7.5-325MG [[place] 7.5-325] 1 - 2 tab PO Q6HR PRN #36 tab PRN Reason: Pain No Action Atenolol/Chlorthalidone [Atenolol/Chlorthalidone 50-25] 1 tab PO HS Simvastatin [Zocor] 40 mg PO HS Chlorthalidone 25 mg PO HS Brimonidine Tartrate [Brimonidine Tartrate 0.1% Oph Soln] 1 drop BOTH EYES BID Latanoprost [Latanoprost 0.005%] 1 drop BOTH EYES HS Ergocalciferol [Vitamin D2 (1250 Mcg = 19729 Iu)] 1,250 mcg PO QMONTHLY Budesonide/Formoterol Fumarate [Symbicort 80-4.5 Mcg Inhaler] 2 puff INHALATION QAM Losartan Potassium [Cozaar] 50 mg PO HS Discharge Medication List Atenolol/Chlorthalidone [Atenolol/Chlorthalidone 50-25] 1 tab PO HS 11/16/21 [History] Budesonide/Formoterol Fumarate [Symbicort 80-4.5 Mcg Inhaler] 2 puff INHALATION QAM 11/16/21 [History] Ergocalciferol [Vitamin D2 (1250 Mcg = 42252 Iu)] 1,250 mcg PO QMONTHLY 11/16/21 [History] Losartan Potassium [Cozaar] 50 mg PO HS 11/16/21 [History] Simvastatin [Zocor] 40 mg PO HS 11/16/21 [History] Brimonidine Tartrate [Brimonidine Tartrate 0.1% Ophth Soln] 1 drop BOTH EYES BID 08/17/23 [History] Chlorthalidone 25 mg PO HS 08/17/23 [History] Latanoprost [Latanoprost 0.005%] 1 drop BOTH EYES HS 08/17/23 [History] Apixaban [Eliquis] 2.5 mg PO BID #60 tab 08/23/23 [Rx] HYDROcodone/APAP 7.5-325MG [[place] 7.5-325] 1 - 2 tab PO Q6HR PRN #36 tab 08/23/23 [Rx] Sennosides/Docusate Sodium [Senna Plus 8.6-50 mg Softgel] 1 each PO DAILY #20 capsule 08/23/23 [Rx] Follow up Appointment(s)/Referral(s): Ryan Granados, CAROLE [PHYSICIAN MAINTENANCE FITTER] - 2 Weeks [facility],Equipment [NON-STAFF] - 1 Week (Call [facility] when you get home and they will deliver your CPM) [facility], [NON-STAFF] - 1 Week ([facility] will call you to arrange a visit) Patient Instructions/Handouts: Knee Replacement (DC), Knee Replacement (GEN) Activity/Diet/Wound Care/Special Instructions: Orthopedic Discharge Instructions: 1. Wound care and infection precautions, keep incision dry and covered while showering, no lotions, creams, moisturizers. No soaking, pools, hot tubs. Do not scrub over incision. 2. Weight-bear as tolerated with walker / cane until follow-up. 3. Ice and elevate when necessary. Do not exceed 20 minutes per hour with ice pack. 4. Utilize compression sleeve until seen at first follow up appointment. 5. Pain meds and anticoagulants per prescription. 6. Pain medication has potential to cause constipation. Increase oral fluid and fiber intake. Contact primary care provider if you have not had a bowel movement within 48 hours after discharge. 7. No anti-inflammatory medication until discussed at first post operative visit, this including Motrin, Aleve, Mobic, Diclofenac. 8. Follow up in office at 2 weeks postop with Shemar Murphy PA-C / Ryan Granados PA-C 9. Follow up with your primary care doctor 7-10 days after discharge. 10. Contact [facility] with any questions, . Keep incision clean, dry, intact. While showering, cover fusion tape with Saran wrap. Keep fusion tape on until follow-up appointment in office in 2 weeks Discharge Disposition: HOME WITH HOME HEALTH SERVICES
--- NOTE | 2023-08-23 13:57 | P.PN ---
Subjective Progress Note Date: 08/23/23 Principal diagnosis: Right knee osteoarthritis Patient was seen at bedside this morning lying in the semirecumbent position with dressing present over right knee. Patient says she did well with therapy this morning and was able to walk out of the hallway and up and down stairs. Patient says she does have a walker for home. Patient says her family will be able to help her out when she does go home. Patient says normally she does not take any blood thinners at home. Patient says she has urinated since surgery yesterday. Patient says she has not had a bowel yet, however, patient says she has been passing gas. Patient denies chest pain, fever, shortness of breath, nausea, vomiting, change in vision, loss of bowel/bladder control. Objective - Vital Signs Vital signs: Vital Signs Temp 98.5 F 08/23/23 07:14 Pulse 82 08/23/23 07:14 Resp 15 08/23/23 07:14 BP 114/68 08/23/23 07:14 Pulse Ox 96 08/23/23 07:14 FiO2 Intake & Output 08/22/23 08/23/23 08/23/23 18:59 06:59 18:59 Intake Total 1700 Output Total 50 Balance 1650 Weight 96.1 kg Intake: IV 1700 Output: Estimated Blood Loss 50 Other: Voiding Method Toilet # Voids 1 1 1 - Exam Right knee: Incision is clean, dry, and intact. The exofin fusion tape is in good condition. There is minimal soft tissue swelling and ecchymosis surrounding the medial and lateral aspects of the incision. Calf is soft, no tenderness with palpation. Plantar flexion, dorsiflexion, EHL, FHL are intact. Sensory exam to light touch throughout the extremity is intact, dorsal pedis pulses 2+. - Labs CBC & Chem 7: 08/23/23 05:10 Labs: Abnormal Lab Results - Last 24 Hours (Table) 08/23/23 Range/Units 05:10 RBC 3.78 L (4.10-5.20) X 10*6/uL Hgb 11.3 L (12.0-15.0) g/dL Hct 34.8 L (37.2-46.3) % Immature Gran # 0.06 H (0.00-0.04) X 10*3/uL Neutrophils # 7.75 H (1.80-7.70) X 10*3/uL Assessment and Plan Assessment: 1. Right knee osteoarthritis -Postop day 1 status post right total knee arthroplasty Plan: 1. Right knee osteoarthritis -right total knee arthroplasty performed yesterday, 08/22/2023. Patient stable at bedside this morning. Patient did do well with therapy. Patient does have a walker at home. Discharge home today with health services. 2. Appreciate medical management 3. Pain management -[place] 4. DVT prophylaxis -Xarelto in hospital. Going home with Eliquis 2.5 mg twice daily x 2 weeks 5. GI prophylaxis -senna 6. Encourage incentive spirometer use 7. PT/OT -weightbearing as tolerated with walker 8. Discharge planning -home today with health services Time with Patient: Less than 30
== END 2023-08-23 15:28 | disposition home health service (06) ==
LOC: OR 05:45 → 4SSUR 09:22 → OR 08-23 15:28
PROVIDERS: ATTEND Orthopaedic Surgery
DX: M17.11 Unilateral primary osteoarthritis, right knee (principal); E78.5 Hyperlipidemia, unspecified; G89.18 Other acute postprocedural pain; I10 Essential (primary) hypertension; J45.909 Unspecified asthma, uncomplicated; Z79.01 Long term (current) use of anticoagulants; Z79.51 Long term (current) use of inhaled steroids; Z86.718 Personal history of other venous thrombosis and embolism; Z98.890 Other specified postprocedural states; Z79.899 Other long term (current) drug therapy
CPT/HCPCS: 94640; 97161; 64999; 64448; 85025; 73560; 27447; C1713 ×2; C1776; C1751; J2250; J1100; J0690 ×2; J2405; J2795

== ENCOUNTER → 2023-12-18 | Outpatient (CLI) | payer OTHER ==
--- NOTE | 2023-12-24 22:01 | MM ---
Reason for Exam: Screening (asymptomatic). Last mammogram was performed 1 year(s) and 1 month(s) ago. Patient History: Menarche at age 11. First Full-Term at age 28. Postmenopausal. Patient has history of breast feeding. 2015, Stereotactic Core Biopsy on the Left side. Maternal grandmother had breast cancer, age 87. Risk Values: Светлана 5 year model risk: 2.4%. NCI Lifetime model risk: 8.3%. Prior Study Comparison: 08/12/2015 Bilateral Diagnostic Mammogram, [facility]. 03/09/2016 Bilateral Screening Mammogram, [facility]. 04/13/2017 Bilateral Screening Mammogram, [facility]. 05/09/2019 Bilateral Screening Mammogram, [facility]. 07/09/2020 Bilateral Screening Mammogram, [facility]. 09/01/2021 Bilateral MG screening mammo w CAD, [facility]. 11/04/2022 Bilateral MG 3D screening mammo w/cad, [facility]. Tissue Density: The breasts are almost entirely fatty. Findings: Analyzed By CAD. The pattern is symmetrical. Core marker is within the left breast. Couple benign small round calcifications are within the right breast. Chronic nodularity is within the right breast. No suspicious groups of microcalcifications, spiculated or lobular masses, architectural distortion or other secondary signs of malignancy are mammographically apparent. Overall Assessment: Benign, BI-RAD 2 Management: Screening Mammogram of both breasts in 1 year. A negative mammogram report should not preclude additional follow up of suspicious palpable abnormalities. Patient should continue monthly self breast exam. A clinical breast exam by your physician is recommended on an annual basis and results should be correlated with mammographic findings. Note on Светлана scores and lifetime risk: 1. A Светлана score greater than 3% is considered moderate risk. If this is the case, consider specialist referral to assess eligibility for a risk reducing agent. 2. If overall lifetime risk for the development of breast cancer is 20% or higher, the patient may qualify for future screening with alternating mammogram and breast MRI. [facility], , 12/24/2023 9:58 PM. Electronically signed and approved by: Zander Ennis D.O. Radiologis
== END | disposition home or self-care (01) ==
LOC: RADMAMWWP 08:37
PROVIDERS: ATTEND Family Medicine
DX: Z12.31 Encounter for screening mammogram for malignant neoplasm of breast
CPT/HCPCS: 77067

== ENCOUNTER 2024-08-11 18:16 | Emergency (ER) | payer OTHER ==
[2024-08-11 18:21] VITALS: TEMP 97.6
[2024-08-11] MEDS: LABETALOL 200 MG TAB PO STA (18:58)
[2024-08-11 19:08] LABS: Basophils # (A) 0.05 10*3/uL (0.00-0.10); Basophils % (A) 0.7 %; Eosinophils # (A) 0.16 10*3/uL (0.04-0.35); Eosinophils % (A) 2.3 %; HCT 42.5 % (37.2-46.3); Lymphocytes # (A) 0.89 10*3/uL (0.90-5.00); MCH 29.1 pg (27.0-32.0); MCHC 32.9 g/dL (32.0-37.0); MCV 88.4 fL (80.0-97.0); Mean Platelet Volume 10.9 fL (9.5-12.2); Monocytes # (A) 0.45 10*3/uL (0.20-1.00); Monocytes % (A) 6.6 %; Neutrophils # (A) 5.26 10*3/uL (1.80-7.70); Neutrophils % (A) 77.1 %; Platelet Count 241 10*3/uL (140-440); RBC 4.81 10*6/uL (4.10-5.20); RDW 12.9 % (11.5-14.5); WBC 6.83 10*3/uL (4.50-10.00)
--- NOTE | 2024-08-11 19:10 | ED ---
Headache HPI - General Chief Complaint: Headache Stated Complaint: Hypertension Time Seen by Provider: 08/11/24 18:32 Source: patient, RN notes reviewed Mode of arrival: ambulatory Limitations: no limitations - History of Present Illness Initial Comments: This is a 68-year-old female with history including hypertension and hyperlipidemia presenting for headache (10/03) x 2 days. Patient endorses constant, throbbing pressure to the front and crown of her head with associated nausea and dizziness. States she has been monitoring her blood pressure at home, noting it has increased significantly around the time her headache began. Denies history of migraines or similar headaches in the past. Denies recent trauma or falls. States she has been taking her losartan daily as prescribed. Denies fever, chills, neck stiffness, vision changes, lateral paresthesia, hemiplegia, dysphasia, vertigo. MD Complaint: headache Onset/Timin -: days(s) Onset Description: sudden Location: frontal Severity scale (1-10): 7 Quality: throbbing Consistency: constant Improves With: nothing Context: occurred at rest Associated Symptoms: nausea, other (Dizziness) Treatments Prior to Arrival: none - Related Data Home Medications Medication Instructions Recorded Confirmed Ergocalciferol [Vitamin D2 (1250 1,250 mcg PO QMONTHLY 11/16/21 08/11/24 Mcg = 55247 Iu)] Fexofenadine HCl [Sandi Allergy] 180 mg PO DAILY PRN 08/11/24 08/11/24 Losartan [Cozaar] 50 mg PO HS 08/11/24 08/11/24 Ondansetron [Zofran] 4 mg PO TID PRN 08/11/24 08/11/24 Simvastatin [Zocor] 40 mg PO HS 08/11/24 08/11/24 Allergies Allergy/AdvReac Type Severity Reaction Status Date / Time morphine Allergy Rash/Hives Verified 08/11/24 19:32 atorvastatin [From Lipitor] AdvReac Nausea & Verified 08/11/24 19:32 Vomiting tramadol AdvReac Nausea Verified 08/11/24 19:32 Review of Systems ROS Statement: Those systems with pertinent positive or pertinent negative responses have been documented in the HPI. ROS Other: All systems not noted in ROS Statement are negative. Past Medical History Past Medical History: Asthma, Cancer, Deep Vein Thrombosis (DVT), Eye Disorder, Hyperlipidemia, Hypertension, Osteoarthritis (OA) Additional Past Medical History / Comment(s): Skin poro cancer removed, dvt L knee post operatively, bilateral glaucoma History of Any Multi-Drug Resistant Organisms: None Reported Past Surgical History: Section, Hernia Repair, Joint Replacement Additional Past Surgical History / Comment(s): Umbilical, Hemorrhoidectomy, D&C, Colonoscopy. TOTAL LT KNEE 08/07/18 Past Anesthesia/Blood Transfusion Reactions: No Reported Reaction Past Psychological History: No Psychological Hx Reported Smoking Status: Never smoker Past Alcohol Use History: Rare Past Drug Use History: None Reported - Past Family History Mother Family Medical History: Hypertension Additional Family Medical History / Comment(s): Subdural Hematoma General Exam Limitations: no limitations General appearance: alert, in no apparent distress Head exam: Present: atraumatic, normocephalic, normal inspection, other (Negative frontal or maxillary sinus tenderness) Eye exam: Present: normal appearance, PERRL, EOMI, other (Hints exams unremarkable). Absent: scleral icterus, conjunctival injection, periorbital swelling Pupils: Present: normal accommodation ENT exam: Present: normal exam, mucous membranes moist, TM's normal bilaterally Neck exam: Present: normal inspection. Absent: tenderness, meningismus, lymphadenopathy Respiratory exam: Present: normal lung sounds bilaterally. Absent: respiratory distress, wheezes, rales, rhonchi, stridor, accessory muscle use, decreased breath sounds, prolonged expiratory Cardiovascular Exam: Present: regular rate, normal rhythm, normal heart sounds. Absent: systolic murmur, diastolic murmur, rubs, gallop, clicks GI/Abdominal exam: Present: soft, normal bowel sounds. Absent: distended, tenderness, guarding, rebound, rigid Extremities exam: Present: normal inspection, full ROM, normal capillary refill. Absent: tenderness, pedal edema, joint swelling, calf tenderness Back exam: Present: normal inspection Neurological exam: Present: alert, oriented X3, CN II-XII intact, other ([place] stroke normal. Cerebellar testing normal) Psychiatric exam: Present: normal affect, normal mood Skin exam: Present: warm, dry, intact, normal color. Absent: rash Course Vital Signs 08/11/24 08/11/24 08/11/24 18:18 20:38 22:08 Temperature 97.6 F 97.6 F Pulse Rate 66 62 61 Respiratory 16 20 18 Rate Blood Pressure 186/114 162/83 150/77 O2 Sat by Pulse 98 99 98 Oximetry Medical Decision Making - Medical Decision Making Was pt. sent in by a medical professional or institution (MCKINLEY Rutledge, CONTROL TECHNICIAN, urgent care, hospital, or long-term...) When possible be specific @ -No Did you speak to anyone other than the patient for history (EMS, parent, family, police, friend...)? What history was obtained from this source @ -No Did you review nursing and triage notes (agree or disagree)? Why? @ -I reviewed and agree with nursing and triage notes Were old charts reviewed (outside hosp., previous admission, EMS record, old EKG, old radiological studies, urgent care reports/EKG's, long-term records)? Report findings @ -No old charts were reviewed Differential Diagnosis (chest pain, altered mental status, abdominal pain women, abdominal pain men, vaginal bleeding, weakness, fever, dyspnea, syncope, headache, dizziness, GI bleed, back pain, seizure, CVA, palpatations, mental health, musculoskeletal)? @ -Differential Headache: Migraine, tension, cluster, carbon monoxide, central venous thrombosis, pension karma temporal arteritis, acute closure glaucoma, intercranial hemorrhage, mastoiditis, sinusitis, head injury, this is not meant to be an all-inclusive list. EKG interpreted by me (3pts min.). @ -Not done X-rays interpreted by me (1pt min.). @ -None done CT interpreted by me (1pt min.). @ -Brain CT shows no acute intracranial process with diffuse paranasal sinus mucosal thickening opacification. CTA head neck shows no evidence of dissection, stenosis or aneurysm. U/S interpreted by me (1pt. min.). @ -None done What testing was considered but not performed or refused? (CT, X-rays, U/S, labs)? Why? @ -None What meds were considered but not given or refused? Why? @ -None Did you discuss the management of the patient with other professionals (professionals i.e. MCKINLEY Rutledge, CONTROL TECHNICIAN, lab, RT, psych nurse, social welfare clerk, biology instructor, teacher, aviation ordnance officer, employment case manager)? Give summary @ -No Was smoking cessation discussed for >3mins.? @ -No Was critical care preformed (if so, how long)? @ -No Were there social determinants of health that impacted care today? How? (Homelessness, low income, unemployed, alcoholism, drug addiction, transportation, low edu. Level, literacy, decrease access to med. care, nursing home, rehab)? @ -No Was there de-escalation of care discussed even if they declined (Discuss DNR or withdrawal of care, Hospice)? DNR status @ -No What co-morbidities impacted this encounter? (DM, HTN, Smoking, COPD, CAD, Cancer, CVA, ARF, Chemo, Hep., AIDS, mental health diagnosis, sleep apnea, morbid obesity)? @ -Hypertension Was patient admitted / discharged? Hospital course, mention meds given and route, prescriptions, significant lab abnormalities, going to OR and other pertinent info. @ -Lab work shows hyperglycemia 119. Brain CT shows no acute intracranial process with diffuse paranasal sinus mucosal thickening opacification. CTA head neck shows no evidence of dissection, stenosis or aneurysm. Patient provided p.o. labetalol for hypertension with blood pressure dropping to 150/77 mmHg prior to discharge and patient noting significant headache relief. Patient advised to follow-up with PCP for ongoing management of blood pressure. Discussed patient with Dr. Vieira. Undiagnosed new problem with uncertain prognosis? @ -No Drug Therapy requiring intensive monitoring for toxicity (Heparin, Nitro, Insulin, Cardizem)? @ -No Were any procedures done? @ -No Diagnosis/symptom? @ -Hypertensive urgency, headache Acute, or Chronic, or Acute on Chronic? @ -Acute Uncomplicated (without systemic symptoms) or Complicated (systemic symptoms)? @ -Complicated Side effects of treatment? @ -No Exacerbation, Progression, or Severe Exacerbation? @ -No Poses a threat to life or bodily function? How? (Chest pain, [place], CA, pneumonia, PE, COPD, DKA, ARF, appy, cholecystitis, CVA, Diverticulitis, Homicidal, Suicidal, threat to staff... and all critical care pts) @ -No - Lab Data Result diagrams: 08/11/24 18:54 08/11/24 18:54 Lab Results 08/11/24 08/11/24 Range/Units 18:54 18:54 WBC 6.83 (4.50-10.00) 10*3/uL RBC 4.81 (4.10-5.20) 10*6/uL Hgb 14.0 (12.0-15.0) g/dL Hct 42.5 (37.2-46.3) % MCV 88.4 (80.0-97.0) fL MCH 29.1 (27.0-32.0) pg MCHC 32.9 (32.0-37.0) g/dL Plt Count 241 (140-440) 10*3/uL MPV 10.9 (9.5-12.2) fL Immature Gran % (Auto) 0.3 % Neutrophils % 77.1 % Lymphocytes % 13.0 % Monocytes % 6.6 % Eosinophils % 2.3 % Basophils % 0.7 % Immature Gran # 0.02 (0.00-0.04) 10*3/uL Neutrophils # 5.26 (1.80-7.70) 10*3/uL Lymphocytes # 0.89 L (0.90-5.00) 10*3/uL Monocytes # 0.45 (0.20-1.00) 10*3/uL Eosinophils # 0.16 (0.04-0.35) 10*3/uL Basophils # 0.05 (0.00-0.10) 10*3/uL Sodium 140 (137-145) mmol/L Potassium 3.9 (3.5-5.1) mmol/L Chloride 106 (98-107) mmol/L Carbon Dioxide 28 (22-30) mmol/L Anion Gap 6 mmol/L BUN 15 (7-17) mg/dL Creatinine 0.72 (0.52-1.04) mg/dL Est GFR (CKD-EPI)AfAm >90 (>60 ml/min/1.73 sqM) Est GFR (CKD-EPI)NonAf 88 (>60 ml/min/1.73 sqM) Glucose 119 H (74-99) mg/dL Calcium 9.4 (8.4-10.2) mg/dL Total Bilirubin 0.8 (0.2-1.3) mg/dL AST 21 (14-36) U/L ALT 14 (4-34) U/L Alkaline Phosphatase 69 (38-126) U/L Total Protein 7.4 (6.3-8.2) g/dL Albumin 4.4 (3.5-5.0) g/dL Disposition Clinical Impression: Sinusitis, Hypertensive urgency, Headache Disposition: HOME SELF-CARE Condition: Good Instructions (If sedation given, give patient instructions): Sinusitis (ED), Hypertension (ED) Additional Instructions: Follow-up with PCP tomorrow for ongoing management of hypertension. Flonase nasal spray twice daily and nasal saline irrigation once daily as needed for sinusitis. Return to ER if experiencing elevated blood pressure, headache, dizziness, one-sided numbness/weakness. Is patient prescribed a controlled substance at d/c from ED?: No Referrals: Archie Doherty MD [Primary Care Provider] - 1-2 days Time of Disposition: 21:35
[2024-08-11 19:19] LABS: ALT 14 U/L (4-34); AST 21 U/L (14-36); African American GFR (CKD) >90 (>60 ml/min/1.73 sqM); Albumin 4.4 g/dL (3.5-5.0); Alkaline Phosphatase 69 U/L (38-126); Anion Gap 6 mmol/L; Blood Urea Nitrogen 15 mg/dL (7-17); Calcium 9.4 mg/dL (8.4-10.2); Carbon Dioxide 28 mmol/L (22-30); Chloride 106 mmol/L (98-107); Glucose 119 mg/dL (74-99); Non-African American GFR(CKD) 88 (>60 ml/min/1.73 sqM); Potassium 3.9 mmol/L (3.5-5.1); Sodium 140 mmol/L (137-145); Total Bilirubin 0.8 mg/dL (0.2-1.3); Total Protein 7.4 g/dL (6.3-8.2)
--- NOTE | 2024-08-11 20:39 | CT ---
EXAMINATION TYPE: CT brain wo con DATE OF EXAM: 08/11/2024 8:25 PM COMPARISON: None. CLINICAL INDICATION: Female, 68 years old with history of Headache, dizziness, nausea, hypertension, headahce, high blood pressure TECHNIQUE: Brain: Axial CT images of the brain were obtained with coronal and sagittal reformats created and rev iewed. Contrast used: None. Oral contrast used: None. CT DLP: 1087 mGycm, Automated exposure control for dose reduction was used. FINDINGS: Brain: Extra-axial spaces: No abnormal extra-axial fluid collections. Ventricular system: Dilatation in proportion to cerebral atrophy. Cerebral parenchyma: No acute intraparenchymal hemorrhage or mass effect. The conti-white junction is well differentiated. Scattered hypoattenuating areas are seen within the white matter. Cerebellum: Unremarkable. Mass effect: No evidence of midline shift. Intracranial vasculature: unremarkable Soft tissues: Normal. Calvarium/osseous structures: No depressed skull fracture. Paranasal sinuses and mastoid air cells: Complete opacification of the right maxillary sinus. Circumf erential mucosal thickening of the left maxillary sinus. Scattered ethmoid air cell mucosal thickenin g. Right sphenoid sinus mucosal thickening with air-fluid level suggesting acute etiology. Visualized orbits: Orbital contents are intact. IMPRESSION: 1. No acute intracranial process. 2. Paranasal sinus disease as above. [facility], , 08/11/2024 8:36 PM
--- NOTE | 2024-08-11 20:43 | CT ---
EXAMINATION TYPE: CT angio head neck DATE OF EXAM: 08/11/2024 8:25 PM COMPARISON: None. CLINICAL INDICATION: Female, 68 years old with history of Headache, dizziness, nausea, hypertension; PHH, headache, high blood pressure TECHNIQUE: Axially acquired helical CT angiogram of the head and neck was obtained with contrast. Axi al images are supplemented with 3D reconstructions and MIP images which were post-processed at an in dependent workstation. NASCET criteria used. Contrast used:65 mL of Isovue 370 with IV Contrast, Oral contrast used: None. CT DLP: 528.2 mGycm, Automated exposure control for dose reduction was used. FINDINGS: CTA HEAD: No evidence of acute intracranial hemorrhage, mass effect, or midline shift. The ventricles, sulci, a nd cisterns are unremarkable. Vertebral arteries: The vertebral arteries are patent. Vertebral artery dominance: Codominant Basilar artery: The basilar artery is intact. The basilar artery bifurcation is normal. Internal Carotid arteries: The cervical, petrous, cavernous and supraclinoid segments are normal. JENNA: Patent with no evidence of aneurysm. ACOM: Present without evidence of aneurysm. MCA: Patent with no evidence of aneurysm. PIN[employer] M[employer] REPA[employer]ER: Patent with no evidence of aneurysm. PCOM: Hypoplastic bilaterally. Dural sinuses: Patent. CTA NECK: Right Carotid System: The common carotid artery and external carotid artery are patent. The carotid bifurcation demonstrate s no evidence of hemodynamically significant stenosis. The remaining portions of the internal carotid artery demonstrate normal size without significant narrowing. Left Carotid System: The common carotid artery and external carotid artery are patent. The carotid bifurcation demonstrate s no evidence of hemodynamically significant stenosis. The remaining portions of the internal carotid artery demonstrate normal size without significant narrowing. Vertebral arteries are patent without evidence hemodynamically significant stenosis. Aberrant right subclavian artery origin noted. Main thoracic aortic arch branches appear patent proxi jim. The origins of the great vessels are patent. No evidence of hemodynamically significant stenos is. Upper thorax: IMPRESSION: 1. No evidence of dissection of the cervical internal carotid arteries or vertebral arteries. 2. No any evidence of significant stenosis at the carotid bifurcations. 3. No evidence of intracranial high-grade stenosis or intracranial aneurysm. [facility], , 08/11/2024 8:41 PM
[2024-08-11 22:15] VITALS: BP 150/77; PULSE 61; RESP 18
== END 2024-08-11 22:18 | disposition home or self-care (01) ==
LOC: EC 18:16
DX: I16.0 Hypertensive urgency (principal); J32.9 Chronic sinusitis, unspecified; Z79.899 Other long term (current) drug therapy; Z88.5 Allergy status to narcotic agent; Z88.8 Allergy status to other drugs, medicaments and biological substances
CPT/HCPCS: 36415; 80053; 85025; 70496; 70450; 70498; 99284; Q9967

== ENCOUNTER → 2024-09-26 | Outpatient (CLI) | payer OTHER ==
--- NOTE | 2024-09-27 18:01 | MR ---
EXAMINATION TYPE: MR angio head wo/neck wo/w con DATE OF EXAM: 09/26/2024 6:57 PM COMPARISON: CT brain 08/11/2024, CTA head and neck 08/11/2024, MRI brain 10/17/2016 CLINICAL INDICATION: Female, 69 years old with history of R51.9 DIZZINESS AND GIDDINESS, Dizziness, h igh blood pressure, family hx of aneurysm IV Contrast: 10 cc Gadobutrol TECHNIQUE: Multiplanar, multi-sequence imaging as well as [id number] and phase contrast imaging w as performed extracranial vasculature of the neck and of the intracranial vasculature of the head. T he patient was given 10 cc of Gadobutrol intravenously. 3-D reformatted images and maximum intensity projection reformatted images were submitted for evaluation. NASCET criteria was utilized. FINDINGS: RIGHT CAROTID SYSTEM: The common carotid artery is patent without stenosis. The internal and external carotid arteries are widely patent. No evidence of stenosis at the carotid bifurcation. LEFT CAROTID SYSTEM: The common carotid artery is patent without stenosis. The internal and external carotid arteries are widely patent. No evidence of stenosis at the carotid bifurcation. The origins of the great vessels and vertebral arteries appear patent without significant stenosis. A berrant right subclavian artery with retroesophageal course. The left vertebral artery is dominant. Vertebral arteries: The vertebral arteries are patent. The left vertebral artery is dominant. Basilar artery: The basilar artery is intact. The basilar artery bifurcation is normal. Internal Carotid arteries: The cervical, petrous, cavernous and supraclinoid segments of the left int ernal carotid artery is unremarkable. There is a saccular aneurysm measuring 5 x 4 mm at the supracli noid segment of the right internal carotid artery. This demonstrates contrast enhancement on postcont rast imaging. The remaining segments of the right internal carotid are unremarkable. JENNA: Patent with no evidence of aneurysm. ACOM: Present without evidence of aneurysm. MCA: Patent with no evidence of aneurysm. IP PARALEGAL: Patent with no evidence of aneurysm. PCOM: Hypoplastic bilaterally. IMPRESSION: 1. 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 2. No significant stenosis involving the carotid arterial systems. 3. Incidental aberrant right subclavian artery. [facility], , 09/27/2024 5:58 PM
== END | disposition home or self-care (01) ==
LOC: RADMRIMAIN 17:31
PROVIDERS: ATTEND Family Medicine
DX: I65.21 Occlusion and stenosis of right carotid artery (principal); R42 Dizziness and giddiness; I10 Essential (primary) hypertension
CPT/HCPCS: 70544; 70549; A9585